=== PATIENT | male | born 1965 | race Caucasian/White ===

== ENCOUNTER 2018-04-11 14:23 | Inpatient (IN) | END 2018-05-09 20:28 | DRG 871 ==

== ENCOUNTER 2018-08-05 21:37 | Inpatient (IN) | payer BC, OTHER ==
[~2018-08-05] VITALS: Ht 175.3 cm; Wt 54.6 kg
[~2018-08-05 21:37] MED LIST: ACET-2047 PO; ACYC400T2 PO; ARGI1POW19 PO; ASCO500C7 PO; CARB1TAB42 PO; DEXT30DR5 OP; ESCI10TA PO; GABA300C16 PO; HYDR2TAB3 PO; IPRA3AMP29 INHALATION; LACT1CAP57 PO; LENA2.5C PO; LORA0.5T PO; MAGN400T28 PO; MEMA10TA PO; METH10TA2 PO; MIRT15TA PO; MULT-94 PO; PANT40TA4 PO; POTA20TA39 PO; RIVA10TA PO; THIA50TA7 PO; VIT1TABL46 PO; ZOF8 PO
[2018-08-05] MEDS ORDERED: CEFEPIME 2GM/50 ML (PMX) 50 ML IVPB STA (21:42)
[2018-08-05] MEDS ORDERED: SODIUM CHLORIDE 0.9% 1L BAG IV* STA (21:44)
[2018-08-05] MEDS ORDERED: ACETAMINOPHEN 650 MG SUPP PR STA (21:44)
[2018-08-05] MEDS ORDERED: VANCOMYCIN 1 GM (PMX) 250 ML IVPB ONE (22:00)
--- NOTE | 2018-08-05 22:33 | ERD ---
ER Documentation Chief Complaint Chief Complaint BIB RA FROM SNF FOR ALOC PRIOR TO ARRIVAL HPI 53-year-old male history of relapsed, refractory non-Hodgkin's lymphoma, Parkinson's disease, sepsis, C. difficile colitis, anemia, neuropathy, depression, blindness and DVT/pulmonary embolism status post IVC filter placement brought to the ED [facility] for evaluation of altered mental status. Patient at baseline is awake, alert and responsive to his name but approximately 30 minutes ago ago became lethargic and not responsive. History is limited due to the patient's cognitive impairment and obtained for review of prior records, EMS report and [facility]itentiary facility records. ROS Unobtainable except as per HPI due to the patient's cognitive impairment Medications Home Meds Reported Medications Omeprazole* (Omeprazole*) 20 Mg Capsule.dr, 20 MG PO AC BREAKFAST, #30 CAP 08/06/18 Magnesium Hydroxide* (Milk Of Magnesia*) 400 Mg/5 Ml Oral.susp, 30 ML PO DAILY PRN for CONSTIPATION, ML 08/06/18 Enoxaparin Sodium* (Enoxaparin Sodium*) 40 Mg/0.4 Ml Syringe, 40 MG SC QHS, SYR 08/06/18 Docusate Sodium* (Colace*) 100 Mg Capsule, 100 MG PO BID, #60 CAP 08/06/18 Aspirin* (Aspirin* Chew) 81 Mg Tab.chew, 81 MG PO DAILY, TAB.CHEW 08/06/18 Lenalidomide (REVLIMID) 2.5 Mg Capsule, 5 MG PO Q48H, CAP 04/12/18 Carbidopa/Levodopa (Carbidopa-Levo ER 25-100 Tab) 1 Each Tablet.er, 1 EACH PO TID, TAB 04/11/18 Multivitamin (Super Multivitamin) 1 Each Tablet, 1 EACH PO DAILY, TAB 04/11/18 Memantine* (Namenda*) 10 Mg Tablet, 10 MG PO DAILY, #30 TAB 04/11/18 Magnesium Oxide* (Magnesium Oxide*) 400 Mg Tablet, 400 MG PO DAILY, TAB 04/11/18 Lactobacillus Rhamnosus* (Culturelle*) 1 Each Cap.sprink, 1 CAP PO BID, CAP 04/11/18 Hydromorphone Hcl* (Hydromorphone Hcl*) 2 Mg Tablet, 2 MG PO Q4H PRN for PAIN, TAB 04/11/18 Gabapentin* (Gabapentin*) 300 Mg Capsule, 900 MG PO TID, #270 CAP 04/11/18 Escitalopram Oxalate* (Lexapro*) 10 Mg Tablet, 10 MG PO DAILY, #30 TAB 04/11/18 Ipratropium-Albuterol (Ipratropium-Albuterol) 0.5-3 Mg/3 Ml Ampul.neb, 3 ML INH ALATION Q8 PRN for WHEEZING AND SOB, #30 VIAL 04/11/18 Ascorbic Acid* (Vitamin C*) 500 Mg Capsule.sa, 500 MG PO BID, CAP 04/11/18 Acetaminophen* (Acetaminophen*) 650 Mg Tablet, 650 MG PO Q6 PRN for PAIN AND/OR INFLAMMATION, #30 TAB 04/11/18 Discontinued Reported Medications Ondansetron Hcl* (Zofran*) 8 Mg Tab, 8 MG PO Q8 PRN for NAUSEA AND OR VOMITING, TAB 04/11/18 Vitamin B Complex* (Vitamin B Complex*) 1 Each Tablet, 1 TAB PO DAILY, TAB 04/11/18 Thiamine* (Thiamine*) 50 Mg Tablet, 50 MG PO DAILY, TAB 04/11/18 Rivaroxaban* (Xarelto*) 10 Mg Tablet, 10 MG PO BID, TAB 04/11/18 Mirtazapine* (Remeron*) 15 Mg Tablet, 15 MG PO HS, TAB 04/11/18 Potassium Bicarbonate-Citric Acid (Effer-K) 20 Meq Tablet.eff, 20 MEQ PO BID, TAB 04/11/18 Pantoprazole* (Pantoprazole*) 40 Mg Tablet.dr, 40 MG PO AC BREAKFAST, TAB 04/11/18 Methadone Hcl* (Methadone*) 10 Mg Tab, 10 MG PO Q12 PRN for SEVERE PAIN LEVEL 7- 10, TAB 04/11/18 Lorazepam* (Lorazepam*) 0.5 Mg Tablet, 0.5 MG PO HS PRN for ANXIETY, TAB 04/11/18 Dextran 70/Hypromellose (Artificials Tears Drops) 30 Ml Drops, 2 DROP OP QID PRN for DRY EYES, BOTTLE 04/11/18 Arginine/Ascorbate Sod/Olivia AC (Arginaid Powder) 1 Each Powd.pack, 1 EACH PO BID 04/11/18 Acyclovir* (Acyclovir*) 400 Mg Tablet, 400 MG PO QID, TAB 04/11/18 Allergies Allergies: Coded Allergies: hydralazine (Verified Allergy, Severe, 08/06/18) levofloxacin (Verified Allergy, Severe, 08/06/18) PMhx/Soc Reviewed in chart. As per HPI. DNR/DNI status to be confirmed. History of Surgery: No Anesthesia Reaction: No Hx Neurological Disorder: Yes (alert to self) Hx Respiratory Disorders: No Hx Cardiac Disorders: No Hx Psychiatric Problems: No Hx Miscellaneous Medical Probl: Yes (PARKINSONISOM, CHRONIC LBP, NEUROPATHY, DEPRESSION , DYSPHAGIA) Hx Alcohol Use: No Hx Substance Use: No Hx Tobacco Use: No FmHx No family history relevant to presenting complaint Physical Exam Vitals Temperature: 101.3. blood pressure 140/102. Pulse: 140. Respirations: 35. O2 saturation 85% on room air. Physical Exam Const: Alert, ill-appearing, severe distress Head: Atraumatic Eyes: Normal Conjunctiva ENT: Normal External Ears, Nose and Mouth. Mucous membranes dry Neck: Limited range of motion, nontender, no meningismus. Resp: Breath sounds diminished at the bases but otherwise clear to auscultation bilaterally Cardio: Tachycardic, regular rate and rhythm, no murmurs Abd: Soft, non tender, non distended. Normal bowel sounds. No rebound or guarding. Exam is limited due to the constraints imposed by the patient's cognitive impairment and clinical condition. Skin: No petechiae or rashes Back: No midline or flank tenderness Ext: No cyanosis, or edema Neur: Lethargic but arousable. Cogwheeling rigidity. Result Diagram: 08/10/18 0440 08/11/18 0518 Results 24 hrs Laboratory Tests Test 08/05/18 21:42 08/05/18 21:49 08/05/18 21:58 08/05/18 23:01 Blood Gas Blood arterial Specimen Source Arterial Blood 08/05/2018 10:12 Date Drawn :53 PM Arterial Blood 7.339 pH (Temp corrected ) Arterial Blood 31.9 mmhg pCO2 (Temp correct) Arterial Blood 82.2 mmHG pO2 (Temp corrected ) Arterial Blood 16.8 mmol/L HCO3 Arterial Blood -8.0 mmol/L Base Excess Arterial Blood 93.5 mmHG Oxygen Saturati on Magdi Test ACCEPTAB Arterial Blood Right Radial Gas Puncture Site Arterial 0.3 % Blood Carboxyhe moglobin Arterial Blood 0.5 % Methemoglobin Blood Gas A-a 598.9 mmHg O2 Differential Oxyhemoglobin 92.8 % Percent Blood Gas 37.0 C Temperature Blood Gas 25 Actual Respiration Rat e Blood Gas MASK - NRB Modality FiO2 100.0 % Blood Gas Critical Value ZEB CLEANING Read Back Blood Gas BL Notified Whom Blood Gas 08/05/2018 10:22 Notified Time :07 PM White Blood 8.3 10^3/ul Count Red Blood Count 3.77 10^6/ul Hemoglobin 11.2 g/dl Hematocrit 39.8 % Mean 105.6 fl Corpuscular Volume Mean 29.7 pg Corpuscular Hemoglobin Mean 28.1 g/dl Corpuscular Hemoglobin Conc ent Red Cell 22.2 % Distribution Width Platelet Count 176 10^3/UL Mean Platelet 12.8 fl Volume Immature 0.500 % Granulocytes % Neutrophils % 44.7 % Lymphocytes % 48.4 % Monocytes % 6.0 % Eosinophils % 0.0 % Basophils % 0.4 % Nucleated Red 0.6 /100WBC Blood Cells % Immature 0.040 10^3/ul Granulocytes # Neutrophils # 3.7 10^3/ul Lymphocytes # 4.0 10^3/ul Monocytes # 0.5 10^3/ul Eosinophils # 0.0 10^3/ul Basophils # 0.0 10^3/ul Nucleated Red 0.1 10^3/ul Blood Cells # Prothrombin 13.4 Sec Time Prothrombin 1.0 Time Ratio INR 1.01 International Normalized Rati o Activated 20.5 Sec Partial Thrombo plast Time Sodium Level 154 mmol/L Potassium Level 3.1 mmol/L Chloride Level 115 mmol/L Carbon Dioxide 17 mmol/L Level Anion Gap 22 Blood Urea 27 mg/dl Nitrogen Creatinine 1.28 mg/dl Est Glomerular 59 mL/min Filtrat Rate mL/min Glucose Level 120 mg/dl POC Venous 7.1 mmol/L Lactate Calcium Level 11.2 mg/dl Total Bilirubin 0.3 mg/dl Direct 0.00 mg/dl Bilirubin Indirect 0.3 mg/dl Bilirubin Aspartate Amino 29 IU/L Transf (AST/SGO T) Alanine 11 IU/L Aminotransferas e (ALT/SGPT) Alkaline 216 IU/L Phosphatase Troponin I 0.275 ng/ml Total Protein 5.8 g/dl Albumin 3.7 g/dl Globulin 2.10 g/dl Albumin/Globuli 1.76 n Ratio Bedside Glucose 127 mg/dL Urine Color YELLOW Urine Clarity CLEAR Urine pH 6.0 Urine Specific 1.018 [place] Urine Ketones TRACE mg/dL Urine Nitrite NEGATIVE mg/dL Urine Bilirubin NEGATIVE mg/dL Urine NEGATIVE mg/dL Urobilinogen Urine Leukocyte NEGATIVE Mich/ul Esterase Urine 41 /HPF Microscopic RBC Urine 10 /HPF Microscopic WBC Urine 2+ mg/dL Hemoglobin Urine Glucose NEGATIVE mg/dL Urine Total 2+ mg/dl Protein Current Medications Medications Dose Sig/Rene Start Time Status Last (Trade) Ordered Route PRN Stop Time Admin Dose Reason Admin Cefepime HCl 50 ml @ ONCE STAT 08/05/18 DC 08/05/18 100 mls/hr IVPB 21:42 22:06 08/05/18 22:11 Vancomycin 250 ml @ ONCE ONCE 08/05/18 DC 08/05/18 HCl 125 mls/hr IVPB 22:00 22:40 08/05/18 23:59 Sodium 1,690 ml BOLUS OVER 2 08/05/18 DC 08/05/18 Chloride HOURS STAT 21:44 22:07 (NS) IV* 08/05/18 21:47 650 mg ONCE STAT 08/05/18 DC 08/05/18 Acetaminophen CO 21:44 22:07 (Tylenol 08/05/18 21:47 Supp) Aspirin 300 mg ONCE ONCE 08/05/18 DC 08/05/18 (Aspirin) CO 23:00 22:40 08/05/18 23:01 Sodium 1,000 ml @ Q1H STAT 08/05/18 DC 08/05/18 Chloride 1,000 mls/hr IV 23:15 23:47 08/06/18 00:14 Procedures/MDM DOCUMENTS REVIEWED: ED nurse, prior records, SNF records EKG: Time: 2204. Sinus tachycardia. Ventricular rate 125. Right bundle branch block. No acute ST segment elevation or depression. No ectopy. My Interpretation IMAGING: PROCEDURE: XR Chest AP portable CLINICAL INDICATION: Sepsis TECHNIQUE: An AP portable radiograph of the chest was submitted. COMPARISON: 07/28/2018 FINDINGS: Support Hardware: None Cardiovascular: The heart remains mildly enlarged with the pulmonary vasculature upper normal. Lung Membreno: A suboptimal inspiration compresses lung parenchyma. Air space opacification projects to the heart within the left lower lobe and improving interstitial infiltrate is seen within the right upper lobe and within the left lung more diffusely. Pleural Spaces: A small left pleural fluid accumulation is suggested. No pneumothorax is evident. Osseous Structures: There is again evidence of vertebral plasty at approximately the level of T10. Soft Tissues: A biliary stent and and inferior vena cava filter projects to the right abdomen. IMPRESSION: 1. Persistent mild cardiomegaly with the pulmonary vasculature upper normal. 2. Improving interstitial infiltrates seen through both lung membreno but with persistent air space opacification projecting to the heart within the left lower lobe. A small left pleural fluid accumulation is suspected but no pneumothorax is evident. 3. Previous vertebral plasty at approximately the level of T10. The osseous elements are osteopenic. 4. A biliary stent and an IVC filter project through the abdomen. Physician Oksana Date Time Electronically viewed and signed by Wayne Conley Physician on 08/05/2018 22:14 RH/ MEDICAL DECISION MAKIN-year-old male history of relapsed, refractory non- Hodgkin's lymphoma, Parkinson's disease, sepsis, C. difficile colitis, anemia, neuropathy, depression, blindness and DVT/pulmonary embolism status post IVC filter placement brought to the ED [facility] for evaluation of altered mental status. Patient with multiple criteria for systemic inflammatory response syndrome, severe sepsis and septic shock with elevated lactate > 4.0 mmol/L. Within 3 hours of recognition 30 cc/kg fluid bolus administered and antibiotics after cultures. Hypoxic respiratory failure responded to noninvasive positive pressure ventilation as a bridge to mechanical ventilation pending resolution of patient's resuscitation status. No hypotension, indication for vasopressors or need for emergent central venous catheter placement. A PICC would be more appropriate and can be deferred until the morning. Elevated troponin without acute ischemic EKG changes consistent with non-ST elevation acute coronary syndrome versus demand ischemia. Patient's infectious symptoms have not stabilized and the patient is at risk of rapid decompensation. The patient will be admitted for careful hydration, antibiotic therapy, infectious source control, further evaluation and management. Sepsis Documentation: SEVERE SEPSIS CRITERIA: Infectious source: Pneumonia and urinary tract infection End organ damage indicated by: Lactate > 2.0 mmol/L Acute Resp Failure (sat < 92% w/o oxygen) SEPSIS MANAGEMENT Time of recognition of sepsis: 21:49. Time of recognition of septic shock: 21:49. 3 HOUR BUNDLE Blood cultures x 2 before broad-spectrum antibiotics: Yes 30 ml/kg NS bolus Completed Initial lactate: 7.1 mmol/L Repeat lactate: 3.7 mmol/L SEPTIC SHOCK ASSESSMENT: Lactic acid > 4.0: Yes Persistent hypotension (SBP < 90 or 40 mmHg drop, MAP < 65) despite 30 mL/kg IV fluid bolus: No VOLUME REASSESSMENT FOR SEPTIC SHOCK: Reevaluation Time: 2319 Temp 99.9, BP 125/86, HR 110, RR 18, Pox 96% Heart: Regular rate & rhythm Lungs: No crackles Skin: Warm & dry Cap Refill: Less than 2 seconds Peripheral pulses: Radially present PERSISTENT HYPOTENSION TREATMENT: Comfort care: No Central line: Not required Vasopressor started: Not required I considered further perfusion assessment with CVP measurement, SCVO2, bedside ultrasound volume assessment, passive leg raise, trial of further fluid bolus. And proceeded with 30 ml/kg fluid bolus of NSS, broad spectrum antibiotics, and admission. CRITICAL CARE Critical care time: 40 minutes Due to the high probability of eminent, respiratory, cardiovascular, metabolic and hemodynamic deterioration this patient with acute hypoxic respiratory failure and septic shock requiring frequent and multiple re-evaluations of vital signs and response to therapy including emergent fluid management while mainta ining close respiratory support. Provision of immediate and broad-spectrum antibiotic therapy. Simultaneous assessment for possible sources in order to direct targeted therapy. Consideration for invasive and chemical support to prevent cardiopulmonary collapse. Additional critical care time was spent in interpretation of relevant clinical data including imaging studies and labs, extensive review of prior medical records and SNF notes as well as arranging for admission and ongoing care. Total critical care time is independent of procedures performed. CALLS/CONSULTS: Dr. Mackay. Recommends admission to telemetry PATIENT CARE TRANSITIONED: Time: 1225, Dr. Mackay. addendum: patient has been boarding in the ER. Upon reevaluation, patient is requiring multiple meds, fluids, abx and potentially pressors. No family is available at this time, but I feel a PICC line is appropriate. PICC line ordered with assumed consent. Departure Diagnosis: Primary Impression: Acute encephalopathy Additional Impressions: Acute respiratory failure with hypoxia Septic shock Systemic inflammatory response syndrome Pneumonia Pneumonia type: due to unspecified organism Laterality: unspecified laterality Lung location: unspecified part of lung Qualified Codes: J18.9 - Pneumonia, unspecified organism Urinary tract infection Urinary tract infection type: site unspecified Hematuria presence: with hematuria Qualified Codes: N39.0 - Urinary tract infection, site not specified; R31.9 - Hematuria, unspecified Non Hodgkin's lymphoma Non-Hodgkin lymphoma type: unspecified type Lymphoma site: unspecified region Qualified Codes: C85.90 - Non-Hodgkin lymphoma, unspecified, unsp ecified site Parkinsons disease Condition: Critical ZEB CLEANING MD Aug 05, 2018 22:33 OLIVER HARDY Aug 06, 2018 10:29
[2018-08-05] MEDS ORDERED: ASPIRIN 300 MG SUPP PR ONE (23:00)
[2018-08-05] MEDS ORDERED: SOD CHLORIDE 0.9% 1,000 ML IV STA (23:15)
[2018-08-06] VITALS (21 sets, daily range): BP systolic 87–120; BP diastolic 55–85; PULSE 96–118; RESP 16–26; Ht 175.3 cm; Wt 54.6 kg
[2018-08-06] MEDS ORDERED: ONDANSETRON 4 MG INJ IV PRN ×2 (01:00→12:00)
[2018-08-06] MEDS ORDERED: ACETAMINOPHEN 325 MG TAB PO PRN (01:00)
[2018-08-06] MEDS ORDERED: ADENOSINE 3 MG/ML SYRINGE IV ONE (07:00)
[2018-08-06] MEDS ORDERED: CA CHLORIDE 10% 10 ML SYRINGE ONE (07:00)
[2018-08-06] MEDS ORDERED: ASPI-903 PO (07:11)
[2018-08-06] MEDS ORDERED: ENOX40DI2 SC (07:12)
[2018-08-06] MEDS ORDERED: DOCU-144 PO (07:12)
[2018-08-06] MEDS ORDERED: MAGN400O19 PO (07:18)
[2018-08-06] MEDS ORDERED: OMEP20CA16 PO (07:19)
[2018-08-06] MEDS ORDERED: ACETAMINOPHEN 650 MG SUPP PR ONE (07:30)
[2018-08-06] MEDS ORDERED: CEFEPIME 1GM/50 ML (PMX) 50 ML IVPB ONE (08:30)
[2018-08-06] MEDS ORDERED: LIDOCAINE 1% (MPF) 5 ML VIAL SC ONE ×2 (08:30→13:00)
[2018-08-06] MEDS ORDERED: VANCOMYCIN 1 GM (PMX) 250 ML IVPB ONE (08:30)
[2018-08-06] MEDS ORDERED: DEXTROSE 5%-0.45% NACL 1,000 ML IV SCH (08:30)
[2018-08-06] MEDS ORDERED: VANCOMYCIN IV PER PHARMACY XX SCH (08:30)
[2018-08-06] MEDS ORDERED: LACTATED RINGER S IV ONE (08:30)
[2018-08-06] MEDS ORDERED: NORepinephrine 8MG/250 ML (PMX 250 ML IV SCH (09:00)
[2018-08-06] MEDS: ALBUTEROL/IPRATROPIUM (NEB) 3 ML AMP HHN SCH ×3 (10:15→19:29)
[2018-08-06] MEDS ORDERED: IPRATROPIUM (NEB) 0.5 MG/2.5 ML AMP NEB PRN (12:00)
[2018-08-06] MEDS ORDERED: DOCUSATE SODIUM 100 MG CAP PO PRN (12:00)
[2018-08-06] MEDS ORDERED: morphine 2 MG INJ IV PRN (12:00)
[2018-08-06] MEDS ORDERED: ALBUTEROL 0.083% (NEB) 2.5 MG/3 ML AMP NEB PRN (12:00)
[2018-08-06] MEDS ORDERED: NACL 0.9% 3 ML SYG IV SCH (12:00)
[2018-08-06] MEDS ORDERED: ACETAMINOPHEN 650MG/20.3ML CUP PO PRN (12:00)
--- NOTE | 2018-08-06 12:07 | HP ---
Date/Time of Note Date/Time of Note DATE: 08/06/18 TIME: 11:49 Assessment/Plan VTE Prophylaxis SCD applied (from Nsg): Yes Pharmacological prophylaxis: NA/contraindicated, other Pharm contraindication: other Lines/Catheters IV Catheter Type (from Nrsg): Saline Lock Assessment/Plan Assessment/Plan -Sepsis with shock, admit to ICU, continue IV fluids, pressors for blood pressure support if needed, continue broad-spectrum antibiotics, follow-up on cultures. Dr. Ramos is asked to see patient in infection disease consultation. -Acute hypoxic respiratory failure, continue BiPAP. Dr. Freeman is asked to see patient in pulmonology consultation. -Recurrent C. difficile colitis, patient was on vancomycin and rifaximin prior to admission. 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 -Parkinsonism. Continue Sinemet. -Neuropathy. Continue gabapentin. -Depression. Continue Lexapro. -Legal blindness. No acute issue. -History of deep venous thrombosis and pulmonary embolism in 2011, status post inferior vena cava filter placement. -Severe protein calorie malnutrition -DNR/DNI status Further recommendations based on clinical course. Plan of care discussed with Dr. Mackay. Result Diagram: 08/05/18214808/05/182148 Results 24hrs Laboratory Tests Test 08/05/18 21:42 08/05/18 21:49 08/05/18 21:58 08/05/18 23:01 Blood Gas Blood arterial Specimen Source Arterial Blood 08/05/2018 10:12: Date Drawn 53 PM Arterial Blood pH 7.339 L (Temp corrected) Arterial Blood 31.9 L pCO2 (Temp correct) Arterial Blood 82.2 pO2 (Temp corrected) Arterial Blood 16.8 L HCO3 Arterial Blood -8.0 L Base Excess Arterial Blood 93.5 L Oxygen Saturation Magdi Test ACCEPTAB Arterial Blood Right Radial Gas Puncture Site Arterial 0.3 Blood Carboxyhemo globin Arterial Blood 0.5 Methemoglobin Blood Gas A-a O2 598.9 H Differential Oxyhemoglobin 92.8 L Percent Blood Gas 37.0 Temperature Blood Gas Actual 25 Respiration Rate Blood Gas MASK - NRB Modality FiO2 100.0 Blood Gas Critical Value ZEB CLEANING Read Back Blood Gas BL Notified Whom Blood Gas 08/05/2018 10:22: Notified Time 07 PM White Blood Count 8.3 # Red Blood Count 3.77 L Hemoglobin 11.2 #L Hematocrit 39.8 #L Mean Corpuscular 105.6 H Volume Mean Corpuscular 29.7 Hemoglobin Mean Corpuscular 28.1 L Hemoglobin Concen t Red Cell 22.2 #H Distribution Width Platelet Count 176 # Mean Platelet 12.8 #H Volume Immature 0.500 H Granulocytes % Neutrophils % 44.7 Lymphocytes % 48.4 Monocytes % 6.0 Eosinophils % 0.0 Basophils % 0.4 Nucleated Red 0.6 H Blood Cells % Immature 0.040 H Granulocytes # Neutrophils # 3.7 Lymphocytes # 4.0 H Monocytes # 0.5 Eosinophils # 0.0 Basophils # 0.0 Nucleated Red 0.1 H Blood Cells # Prothrombin Time 13.4 Prothrombin Time 1.0 Ratio INR International 1.01 Normalized Ratio Activated 20.5 L Partial Thrombopl ast Time Sodium Level 154 H Potassium Level 3.1 L Chloride Level 115 H Carbon Dioxide 17 L Level Anion Gap 22 H Blood Urea 27 H Nitrogen Creatinine 1.28 H Est Glomerular 59 L Filtrat Rate mL/min Glucose Level 120 POC Venous 7.1 *H Lactate Calcium Level 11.2 H Total Bilirubin 0.3 Direct Bilirubin 0.00 Indirect 0.3 Bilirubin Aspartate Amino 29 Transf (AST/SGOT) Alanine 11 L Aminotransferase (ALT/SGPT) Alkaline 216 H Phosphatase Troponin I 0.275 *H Total Protein 5.8 L Albumin 3.7 Globulin 2.10 Albumin/Globulin 1.76 Ratio Bedside Glucose 127 Urine Color YELLOW Urine Clarity CLEAR Urine pH 6.0 Urine Specific 1.018 [place] Urine Ketones TRACE A Urine Nitrite NEGATIVE Urine Bilirubin NEGATIVE Urine NEGATIVE Urobilinogen Urine Leukocyte NEGATIVE Esterase Urine Microscopic 41 H RBC Urine Microscopic 10 H WBC Urine Hemoglobin 2+ H Urine Glucose NEGATIVE Urine Total 2+ H Protein Test 08/06/18 01:24 08/06/18 05:24 POC Venous 3.7 *H Lactate Lactic Acid Level 3.4 *H HPI/ROS Admit Date/Time Admit Date/Time Hx of Present Illness The patient is a 53-year-old male with history of non-Hodgkin's lymphoma status post radiation therapy patient follows with Dr. Pita Leger at [facility] and currently in remission on routine Revlimid. Patient has a history of Parkinson 's disease, recurrent C. difficile colitis and was treated on vancomycin and rifampin at [facility] facility, history of sepsis neuropathy, history of DVT and pulmonary embolism, status post IVC filter placement, blindness, and depression. Patient has a history of G-tube placement and subsequent G-tube removal and was taking p.o. at retirement facility, however, his food intake and appetite was declining lately. Patient was brought by an ambulance to [facility] ER for evaluation of altered mental status. Patient was noted to have fever, hypertension and respiratory distress requiring placement on BiPAP and IV fluids resuscitation. Lactate was elevated to 7.1. Patient was diagnosed with sepsis was started on broad-spectrum antibiotics and patient will be admitted for further evaluation and management. According to take care process maintenance technician at the bedside patient had cough and was treated with separate cefepime at [facility] facility prior to admission. I spoke with NEYDA Justin who wants patient to get treatment including antibiotics and pressors, however, requested the patient would be DNR /DNI. ROS 12 point review of system is negative except for what mentioned in HPI PMH/Family/Social Past Medical History HPI Medications Current Medications Ondansetron HCl (Zofran Inj) 4 mg ER BRIDGE PRN IV NAUSEA AND/OR VOMITING; Start 08/06/18 at 01:00; Stop 08/07/18 at 00:59 Acetaminophen (Tylenol Tab) 650 mg ER BRIDGE PRN PO MILD PAIN(1-3)OR ELEVATED TEMP; Start 08/06/18 at 01:00; Stop 08/07/18 at 00:59 Dextrose/Sodium Chloride 1,000 ml @ 100 mls/hr Q10H IV Last administered on 08/06/18at 09:56; Admin Dose 100 MLS/HR; Start 08/06/18 at 08:30 Vancomycin HCl (Vanco Iv Per Pharmacy) VANCOMYCIN PER PHARMACY PER PROTOCOL XX ; Start 08/06/18 at 08:30 Cefepime HCl 50 ml @ 100 mls/hr Q12 IVPB ; Start 08/06/18 at 21:00 Pantoprazole (Protonix Iv) 40 mg DAILY@06 IV ; Start 08/07/18 at 06:00 Albuterol/ Ipratropium (Duoneb) 3 ml Q6H RESP THERAPY HHN Last administered on 08/06/18at 10:15; Admin Dose 3 ML; Start 08/06/18 at 08:30 Acetaminophen (Tylenol Supp) 650 mg Q4H PRN ME MILD PAIN(1-3) OR TEMP>38C; Start 08/06/18 at 08:30 Norepinephrine 250 ml @ 1.875 mls/ hr TITRATE IV ; Start 08/06/18 at 09:00 Coded Allergies: hydralazine (Verified Allergy, Severe, 08/06/18) levofloxacin (Verified Allergy, Severe, 08/06/18) Past Surgical History Past Surgical Hx: other (Status post biliary stent placement, status post IVC filter placement for history of DVT and PE, status post G-tube placement and subsequent removal) Family History Significant Family History: no pertinent family hx Social History Alcohol Use: none Smoking Status: Never smoker Drug Use: none Exam/Review of Systems Vital Signs Vitals Vital Signs Date Temp Pulse Resp B/P (MAP) Pulse Ox O2 O2 Flow FiO2 Time Delivery Rate 08/06/18 99.6 99 17 97/81 (86) 100 BIPAP 11:15 08/06/18 15.0 06:30 08/06/18 70 00:11 Exam Constitutional: alert, frail Psych: confusion Head: normocephalic Eyes: other (Blind) ENMT: nl external ears & nose Neck: supple Respiratory: diminished breath sounds Cardiovascular: regular rate and rhythm Gastrointestinal: soft, non-tender Genitourinary - Male: other (Craft catheter) Musculoskeletal: nl extremities to inspection Extremities: normal pulses Neurological: confused, lethargic Skin: nl ALEXANDRA Cartagena Aug 06, 2018 12:00
[2018-08-06] MEDS ORDERED: LENALIDOMIDE 5 MG XX SCH (12:30)
[2018-08-06] MEDS: GABAPENTIN 300 MG CAP PO SCH ×2 (14:00→20:10)
--- NOTE | 2018-08-06 14:34 | NUR ---
PICC Insertion. This nurse to ICU bed 118 for peripherally inserted central catheter (PICC) insertion. Patient awake, alert, oriented x 4. Procedure reviewed, patient agreed to proceed. Signed consent on chart for PICC. LUE prepped with chlorhexidene, then maximum barrier drape applied. 5 FR double lumen Arrow Power PICC inserted into brachial vein, 45cm cut internal, 0cm exposed, using U/S guidance and sterile technique. CXR performed; tip confirmed in lower 1/3 SVC. Sterile dressing applied. Patient tolerated procedure well.
--- NOTE | 2018-08-06 14:50 | CONS ---
DATE OF ADMISSION: 08/06/2018 DATE OF CONSULTATION: 08/06/2018 REASON FOR CONSULTATION: Shortness of breath. Thank you, Dr. Mackay, for this consultation. HISTORY OF PRESENT ILLNESS: This is a 53-year-old gentleman with multiple medical problems including legal blindness, severe Parkinson disease, depression, relapsed non-Hodgkin's lymphoma, recurrent C. difficile colitis, [facility] with increasing shortness of breath, orthop flako, PND, found to have significant hypoxemic respiratory failure, possible early right lower lobe pn eumonia. Initial lactic acid was markedly elevated. The patient received fluid resuscitation. Curr ently does not require vasopressor support. PAST MEDICAL HISTORY: As above including pulmonary embolism, status post inferior vena cava filter p lacement. MEDICATIONS: Per chart. ALLERGIES: None. SOCIAL HISTORY: He is a nonsmoker, no alcohol, no history of drug use. FAMILY HISTORY: Noncontributory. SYSTEMS REVIEW: A 12-point review of systems unable to perform. PHYSICAL EXAMINATION: GENERAL: Chronically ill, cachectic looking gentleman with contractures on bilevel ventilation. VITAL SIGNS: Temperature 99, pulse is 98, blood pressure 103/68, O2 saturation 96%, FIO2 of 50%. NECK: Somewhat rigid. No JVD. CARDIAC: S1, S2, tachycardia. CHEST: Diminished air entry bilaterally. ABDOMEN: Soft, nontender. No guarding or rebound. EXTREMITIES: No cyanosis, clubbing, edema. NEUROLOGIC: Generalized weakness. LABORATORY DATA: White count 3.3, hemoglobin 8.2, platelets of 96. BUN 29, creatinine 1.08. Lactic acid now down to 3.4. ABG: pH 7.33, pCO2 of 31, pO2 of 82 on nonrebreather. DIAGNOSTIC DATA: Chest x-ray shows early right lower lobe infiltrate, possible left lower lobe infil trate also. IMPRESSION AND PLAN: 1. Possible aspiration pneumonia. 2. Acute on chronic hypoxemic respiratory failure. 3. Mild respiratory acidosis. 4. Significant lactic acidosis secondary to sepsis. 5. Severe Parkinson's disease. 6. History of pulmonary embolus status post IVC filter placement. The patient will require: 1. Aspiration precautions. 2. Post antibiotics. 3. Sputum and blood cultures. 4. Deep vein thrombosis and gastrointestinal prophylaxis. Dictated By: DANTE ANTOINE/JAMES Conf#: [id number] [facility]#: [id number] CC: TALI MACKAY MD;*End*
[2018-08-06] MEDS: CARBIDOPA/LEVODOPA 25-100 (CR) TAB PO SCH ×2 (15:00→20:09)
--- NOTE | 2018-08-06 15:08 | CONS ---
DATE OF ADMISSION: 08/06/2018 DATE OF CONSULTATION: 08/06/2018 TYPE OF CONSULTATION: Infectious disease. REASON FOR CONSULTATION: Antibiotic management. HISTORY OF PRESENT ILLNESS: Mikey Duncan is a 53-year-old male who was brought in from SNF for al tered levels of consciousness and is seen for antibiotic management. His problems include: 1. Relapsed refractory non-Hodgkin's lymphoma. 2. Parkinson's disease. 3. Sepsis. 4. History of Clostridium difficile colitis. 5. Anemia of chronic disease. 6. Neuropathy. 7. Depression. 8. Blindness. 9. DVT with pulmonary emboli, status post IVC filter placement. The patient was brought in for alte red levels of consciousness. He was awake, alert, responsive, was able to respond to his name and be came lethargic and unresponsive 30 minutes prior to his being taken to the hospital. He has cognitiv e impairment. PAST MEDICAL HISTORY: As outlined and includes Parkinson's disease, chronic low back pain, neuropath y, depression and dysphagia. PAST SURGICAL HISTORY: None known. FAMILY HISTORY: Noncontributory. SOCIAL HISTORY: He does not smoke, drink or abuse drugs. ALLERGIES: None to penicillin, sulfa or foods. MEDICATIONS: Per chart. REVIEW OF SYSTEMS: Noncontributory. PHYSICAL EXAMINATION: GENERAL: The patient is awake, responsive, ill appearing in severe distress. VITAL SIGNS: T-max is 101.3, blood pressure 140/100, respirations 35, pulse of 140. SKIN: Without generalized rash. HEENT: Within normal limits. NECK: Supple. LYMPH NODES: None palpable. CHEST: Decreased breath sounds at the bases. HEART: Tachycardic, regular rhythm without murmur or gallop. ABDOMEN: Soft, nontender, nondistended, without organosplenomegaly or masses. EXTREMITIES: Without cyanosis, clubbing, or edema. RECTAL AND GENITAL: Deferred. NEUROLOGIC: No focal neurological abnormality. Patient actually has cog wheeling rigidity secondary to his Parkinson's disease. ANCILLARY LABORATORY DATA: White count of 8.3, H and H 11.2, 39, platelet count 176,000. BUN and creatinine 27/1.28, glucose of 120. HOSPITAL COURSE: The patient was started on vancomycin and cefepime. A PICC line was inserted, left -sided PICC line. Heart, mediastinum and lungs are unchanged, mild cardiomegaly with mild vascular c ongestion, mild bilateral interstitial infiltrates and left-sided pleural effusion. The patient has on chest x-ray interstitial infiltrates seen for both lungs with persistent airspace opacification pr ojecting to the heart within the left lower lobe, small left pleural effusion accumulation is suspect ed, no swelling or pneumothorax is evident, previous vertebroplasty at approximately the level of T10 , biliary stent and an IVC filter project through the abdomen. IMPRESSION AND PLAN: The patient comes in now with altered levels of consciousness. He has SIRS wit h infection, most likely of his lungs. He is on vancomycin and Zosyn for that. His urine is negativ e for nitrite and leukocyte esterase, his WBC count in the urine is 10, RBC 41. Patient was transfer red to the intensive care unit in septic shock. Continue IV fluids, pressors for blood pressure as n eeded and continue broad spectrum antibiotics. IMPRESSION: Acute hypoxic respiratory failure, recurrent C. difficile colitis, was on vancomycin and rifaximin. On admission, probable healthcare-acquired pneumonia. He has relapsed non-Hodgkin's lym phoma to spine and brain, post-radiation therapy. The patient is currently on Revlimid. Altered lev els of consciousness, most likely secondary to toxic metabolic encephalopathy secondary to sepsis. T he patient is on Sinemet for Parkinson disease and gabapentin for neuropathy, Lexapro for depression. He has severe protein calorie malnutrition. He is a DNR/DNI. I want to thank Dr. Mackay and nurse practitioner Kaleb for asking me to see this unfortunate g entleman in consultation. Dictated By: FRANCISCO JAVIER GATES MD, JD/NTS Conf#: [id number] DID#: [id number] CC: TALI MACKAY MD;*EndCC*
[2018-08-06] MEDS: POTASSIUM CHLORIDE 50 ML IVPB SCH ×2 (15:14→16:53)
[2018-08-06] MEDS: D5W-0.45 NACL + KCL 20 MEQ 1,000 ML IV SCH (15:43)
--- NOTE | 2018-08-06 18:11 | CONS ---
Date/Time of Note Date/Time of Note DATE: 08/06/18 TIME: 18:05 Assessment/Plan Assessment/Plan Assessment/Plan Severe sepsis Paroxysmal atrial fibrillation, currently sinus rhythm History lymphoma Mild elevated troponin -Patient with sepsis and hypotension which has responded to IV fluids. Would continue, maintain potassium above 4.0 and magnesium above 2.0. Initial cardiac enzymes with mildly elevated troponin, will check serial cardiac enzymes, echocardiogram. Result Diagram: 08/06/18 1251 08/06/18 1251 Results 24hrs Laboratory Tests Test 08/05/18 21:42 08/05/18 21:49 08/05/18 21:58 08/05/18 23:01 Blood Gas Blood arterial Specimen Source Arterial Blood 08/05/2018 10:12 Date Drawn :53 PM Arterial Blood 7.339 L pH (Temp corrected) Arterial Blood 31.9 L pCO2 (Temp correct) Arterial Blood 82.2 pO2 (Temp corrected) Arterial Blood 16.8 L HCO3 Arterial Blood -8.0 L Base Excess Arterial Blood 93.5 L Oxygen Saturatio n Magdi Test ACCEPTAB Arterial Blood Right Radial Gas Puncture Site Arterial 0.3 Blood Carboxyhem oglobin Arterial Blood 0.5 Methemoglobin Blood Gas A-a O2 598.9 H Differential Oxyhemoglobin 92.8 L Percent Blood Gas 37.0 Temperature Blood Gas Actual 25 Respiration Rate Blood Gas MASK - NRB Modality FiO2 100.0 Blood Gas Critical Value ZEB [employer]ANING Read Back Blood Gas BL Notified Whom Blood Gas 08/05/2018 10:22 Notified Time :07 PM White Blood 8.3 # Count Red Blood Count 3.77 L Hemoglobin 11.2 #L Hematocrit 39.8 #L Mean Corpuscular 105.6 H Volume Mean Corpuscular 29.7 Hemoglobin Mean Corpuscular 28.1 L Hemoglobin Elise nt Red Cell 22.2 #H Distribution Width Platelet Count 176 # Mean Platelet 12.8 #H Volume Immature 0.500 H Granulocytes % Neutrophils % 44.7 Lymphocytes % 48.4 Monocytes % 6.0 Eosinophils % 0.0 Basophils % 0.4 Nucleated Red 0.6 H Blood Cells % Immature 0.040 H Granulocytes # Neutrophils # 3.7 Lymphocytes # 4.0 H Monocytes # 0.5 Eosinophils # 0.0 Basophils # 0.0 Nucleated Red 0.1 H Blood Cells # Prothrombin Time 13.4 Prothrombin Time 1.0 Ratio INR 1.01 International Normalized Ratio Activated 20.5 L Partial Thrombop last Time Sodium Level 154 H Potassium Level 3.1 L Chloride Level 115 H Carbon Dioxide 17 L Level Anion Gap 22 H Blood Urea 27 H Nitrogen Creatinine 1.28 H Est Glomerular 59 L Filtrat Rate mL/min Glucose Level 120 POC Venous 7.1 *H Lactate Calcium Level 11.2 H Total Bilirubin 0.3 Direct Bilirubin 0.00 Indirect 0.3 Bilirubin Aspartate Amino 29 Transf (AST/SGOT ) Alanine 11 L Aminotransferase (ALT/SGPT) Alkaline 216 H Phosphatase Troponin I 0.275 *H Total Protein 5.8 L Albumin 3.7 Globulin 2.10 Albumin/Globulin 1.76 Ratio Bedside Glucose 127 Urine Color YELLOW Urine Clarity CLEAR Urine pH 6.0 Urine Specific 1.018 Wray Urine Ketones TRACE A Urine Nitrite NEGATIVE Urine Bilirubin NEGATIVE Urine NEGATIVE Urobilinogen Urine Leukocyte NEGATIVE Esterase Urine 41 H Microscopic RBC Urine 10 H Microscopic WBC Urine Hemoglobin 2+ H Urine Glucose NEGATIVE Urine Total 2+ H Protein Test 08/06/18 01:24 08/06/18 05:24 08/06/18 12:51 08/06/18 14:15 POC Venous 3.7 *H Lactate Lactic Acid 3.4 *H Level White Blood 3.3 #L Count Red Blood Count 2.74 #L Hemoglobin 8.2 #L Hematocrit 28.7 #L Mean Corpuscular 104.7 H Volume Mean Corpuscular 29.9 Hemoglobin Mean Corpuscular 28.6 L Hemoglobin Elise nt Red Cell 21.9 H Distribution Width Platelet Count 93 #L Mean Platelet 12.8 H Volume Immature 0.600 H Granulocytes % Neutrophils % Segmented 50 Neutrophils % (Manual) Band Neutrophils 19 H % (Manual) Lymphocytes % Lymphocytes % 29 (Manual) Monocytes % Monocytes % 2 (Manual) Eosinophils % Basophils % Nucleated Red 0.6 H Blood Cells % Immature 0.020 Granulocytes # Neutrophils # Neutrophils # 1.7 (Manual) Band Neutrophils 0.6 # Lymphocytes 0.9 (Manual) Lymphocytes # Monocytes # Monocytes # 0.0 L (Manual) Eosinophils # Basophils # Nucleated Red Blood Cells # Platelet DECREASED Estimate Giant Platelets 2 H Polychromasia 3+ Anisocytosis 1+ Microcytosis 1+ Ovalocytes 1+ Sodium Level 151 H Potassium Level 2.6 *L Chloride Level 121 H Carbon Dioxide 22 Level Anion Gap 8 # Blood Urea 29 H Nitrogen Creatinine 1.08 Est Glomerular > 60 Filtrat Rate mL/min Glucose Level 99 Hemoglobin A1c 4.7 Calcium Level 9.5 Phosphorus Level 3.6 Magnesium Level 1.9 Blood Gas Blood arterial Specimen Source Arterial Blood 08/06/2018 2:10: Date Drawn 28 PM Arterial Blood 7.389 pH (Temp corrected) Arterial Blood 36.0 pCO2 (Temp correct) Arterial Blood 110.4 H pO2 (Temp corrected) Arterial Blood 21.3 L HCO3 Arterial Blood -3.3 L Base Excess Arterial Blood 97.0 Oxygen Saturatio n Magdi Test ACCEPTAB Arterial Blood Right Radial Gas Puncture Site Arterial 0.3 Blood Carboxyhem oglobin Arterial Blood 0.4 Methemoglobin Blood Gas A-a O2 205.6 H Differential Oxyhemoglobin 96.3 Percent Blood Gas 37.0 Temperature Blood Gas 16.0 Respiration Rate Blood Gas Actual 23 Respiration Rate Blood Gas MASK - BIPAP Modality FiO2 50.0 Blood Gas 10 Pressure Support Blood Gas 16/6 IPAP/EPAP Ratio Blood Gas [place] Notified Whom Blood Gas 08/06/2018 2:22: Notified Time 21 PM Consultation Date/Type/Reason Admit Date/Time Type of Consult cv Reason for Consultation Atrial fibrillation Hx of Present Illness This is a 53-year-old male with progressive decline with history of lymphoma and fdc facility who was brought to emergency room secondary to respiratory distress, hypotension and altered mental status. As per friend at bedside, there is been a progressive mental decline since Saturday. Patient with hypotension and was given IV fluids and started on broad-spectrum antibiotics. Patient with brief atrial fibrillation and for this reason cardiology condition was requested. History of him to medical chart and per friend at bedside Past Medical History Lymphoma Recurrent sepsis Parkinson's Medications Current Medications Vancomycin HCl (Vanco Iv Per Pharmacy) VANCOMYCIN PER PHARMACY PER PROTOCOL XX ; Start 08/06/18 at 08:30 Cefepime HCl 50 ml @ 100 mls/hr Q12 IVPB ; Start 08/06/18 at 21:00 Albuterol/ Ipratropium (Duoneb) 3 ml Q6H RESP THERAPY HHN Last administered on 08/06/18at 14:08; Admin Dose 3 ML; Start 08/06/18 at 08:30; Stop 09/05/18 at 12:00 Acetaminophen (Tylenol Supp) 650 mg Q4H PRN [place] MILD PAIN(1-3) OR TEMP>38C; Start 08/06/18 at 08:30 Norepinephrine 250 ml @ 1.875 mls/ hr TITRATE IV ; Start 08/06/18 at 09:00 Potassium Chloride/Dextrose/ Sod Cl 1,000 ml @ 100 mls/hr Q10H IV Last administered on 08/06/18at 15:43; Admin Dose 100 MLS/HR; Start 08/06/18 at 13:00 IV Flush (NS 3 ml) 3 ml PER PROTOCOL IV ; Start 08/06/18 at 12:00 Ondansetron HCl (Zofran Inj) 4 mg Q6H PRN IV NAUSEA AND/OR VOMITING; Start 08/06/18 at 12:00 Albuterol (Proventil 0.083% (Neb)) 2.5 mg Q2H RESP THERAPY PRN NEB SHORTNESS OF BREATH; Start 08/06/18 at 12:00 Ipratropium [place] (Atrovent 0.02% (Neb)) 0.5 mg Q2H RESP THERAPY PRN NEB SHORTNESS OF BREATH; Start 08/06/18 at 12:00 Acetaminophen (Tylenol Liquid) 650 mg Q6H PRN PO PAIN LEVEL 1-3 OR FEVER; Start 08/06/18 at 12:00 Morphine Sulfate (morphine) 2 mg Q4H PRN IV PAIN LEVEL 7-10; Start 08/06/18 at 12:00 Docusate Sodium (Colace) 100 mg Q12H PRN PO CONSTIPATION; Start 08/06/18 at 12:00 Pantoprazole (Protonix Iv) 40 mg DAILY@06 IV ; Start 08/07/18 at 06:00 Aspirin (Aspirin) 81 mg DAILY PO ; Start 08/07/18 at 09:00 Carbidopa/Levodopa (Sinemet Cr (25/ 100)) 1 tab TID PO ; Start 08/06/18 at 15:00 Gabapentin (Neurontin) 900 mg TID PO ; Start 08/06/18 at 14:00 Lactobacillus Acidophilus/ Rhamnosus (Culturelle) 1 cap BID PO ; Start 08/06/18 at 21:00 Memantine (Namenda) 10 mg DAILY PO ; Start 08/07/18 at 09:00 Miscellaneous Information 5 mg Q48H PO ; Start 08/06/18 at 12:30; Status UNV Multivitamins Therapeutic (Theragran) 1 tab DAILY PO ; Start 08/07/18 at 09:00 Vancomycin HCl 100 ml @ 100 mls/hr Q12H IVPB ; Start 08/06/18 at 18:00 IV Flush (NS 10 ml) 10 ml PRN PRN IV FLUSH LINE; Start 08/06/18 at 15:00 Allergies: Coded Allergies: hydralazine (Verified Allergy, Severe, 08/06/18) levofloxacin (Verified Allergy, Severe, 08/06/18) Past Surgical History Past Surgical Hx: other (Status post biliary stent placement, status post IVC filter placement for history of DVT and PE, status post G-tube placement and subsequent removal) Family History Significant Family History: no pertinent family hx Social History Alcohol Use: none Smoking Status: Unknown if ever smoked Drug Use: none Exam/Review of Systems Vital Signs Vitals Vital Signs Date Temp Pulse Resp B/P (MAP) Pulse Ox O2 O2 Flow FiO2 Time Delivery Rate 08/06/18 104 19 103/69 96 17:30 (80) 08/06/18 Nasal 17:00 Cannula 08/06/18 2.0 16:55 08/06/18 98.1 16:00 08/06/18 50 14:08 Exam Awake, coughing at times, not answering questions, friend at bedside Constitutional: frail Head: normocephalic Respiratory: other (Coarse breath sounds bilaterally, no wheezing, scattered crackles) Cardiovascular: regular rate and rhythm, other (S1-S2 heard) Gastrointestinal: soft, non-tender, bowel sounds Extremities: edema Medications Medications Current Medications Vancomycin HCl (Vanco Iv Per Pharmacy) VANCOMYCIN PER PHARMACY PER PROTOCOL XX ; Start 08/06/18 at 08:30 Cefepime HCl 50 ml @ 100 mls/hr Q12 IVPB ; Start 08/06/18 at 21:00 Albuterol/ Ipratropium (Duoneb) 3 ml Q6H RESP THERAPY HHN Last administered on 08/06/18at 14:08; Admin Dose 3 ML; Start 08/06/18 at 08:30; Stop 09/05/18 at 12:00 Acetaminophen (Tylenol Supp) 650 mg Q4H PRN [place] MILD PAIN(1-3) OR TEMP>38C; Start 08/06/18 at 08:30 Norepinephrine 250 ml @ 1.875 mls/ hr TITRATE IV ; Start 08/06/18 at 09:00 Potassium Chloride/Dextrose/ Sod Cl 1,000 ml @ 100 mls/hr Q10H IV Last administered on 08/06/18at 15:43; Admin Dose 100 MLS/HR; Start 08/06/18 at 13:00 IV Flush (NS 3 ml) 3 ml PER PROTOCOL IV ; Start 08/06/18 at 12:00 Ondansetron HCl (Zofran Inj) 4 mg Q6H PRN IV NAUSEA AND/OR VOMITING; Start 08/06/18 at 12:00 Albuterol (Proventil 0.083% (Neb)) 2.5 mg Q2H RESP THERAPY PRN NEB SHORTNESS OF BREATH; Start 08/06/18 at 12:00 Ipratropium [place] (Atrovent 0.02% (Neb)) 0.5 mg Q2H RESP THERAPY PRN NEB SHORTNESS OF BREATH; Start 08/06/18 at 12:00 Acetaminophen (Tylenol Liquid) 650 mg Q6H PRN PO PAIN LEVEL 1-3 OR FEVER; Start 08/06/18 at 12:00 Morphine Sulfate (morphine) 2 mg Q4H PRN IV PAIN LEVEL 7-10; Start 08/06/18 at 12:00 Docusate Sodium (Colace) 100 mg Q12H PRN PO CONSTIPATION; Start 08/06/18 at 12:00 Pantoprazole (Protonix Iv) 40 mg DAILY@06 IV ; Start 08/07/18 at 06:00 Aspirin (Aspirin) 81 mg DAILY PO ; Start 08/07/18 at 09:00 Carbidopa/Levodopa (Sinemet Cr (25/ 100)) 1 tab TID PO ; Start 08/06/18 at 15:00 Gabapentin (Neurontin) 900 mg TID PO ; Start 08/06/18 at 14:00 Lactobacillus Acidophilus/ Rhamnosus (Culturelle) 1 cap BID PO ; Start 08/06/18 at 21:00 Memantine (Namenda) 10 mg DAILY PO ; Start 08/07/18 at 09:00 Miscellaneous Information 5 mg Q48H PO ; Start 08/06/18 at 12:30; Status UNV Multivitamins Therapeutic (Theragran) 1 tab DAILY PO ; Start 08/07/18 at 09:00 Vancomycin HCl 100 ml @ 100 mls/hr Q12H IVPB ; Start 08/06/18 at 18:00 IV Flush (NS 10 ml) 10 ml PRN PRN IV FLUSH LINE; Start 08/06/18 at 15:00 Imaging Imaging Telemetry reviewed with sinus rhythm, brief episode of atrial fibrillation, currently sinus rhythm in the low 100s Nito Ramirez DO Aug 06, 2018 18:11
[2018-08-06] MEDS ORDERED: MAGNESIUM SULFATE 2 GM/50 ML 50 ML IVPB ONE (18:30)
--- NOTE | 2018-08-06 19:21 | NUR ---
NURSE NOTE: PT ARRIVED TO ICU AT 1220, A/Ox1 OPENS EYES TO VOICE AND WILL VERBALLY RESPOND OCCASIONALLY; BP STABLE SO FAR AND HAS NOT REQUIRED VASOPRESSORS; PICC LINE PLACED, DURING PICC INSERTION PT WENT INTO RAPID AFIB HIGH 200s BUT CONVERTED OUT IN 15 MINUTES WITHOUT PHARMACOLOGIC INTERVENTION; K CRITICALLY LOW AND REPLACED IV; ON BIPAP WHEN HE ARRIVED FROM ER, ABG DRAWN AND WAS WNL SO PLACED PT ON NC AND HE LOOKS COMFORTABLE NO SOB AND O2 SAT >92%.
[2018-08-06] MEDS: VANCOMYCIN 500 MG (PMX) 100 ML IVPB SCH (19:42)
[2018-08-06] MEDS: LACTOBACILLUS RHAMNOSUS CAP PO SCH (20:10)
[2018-08-06] MEDS: morphine SULFATE/PF (2 MG/2 ML) SYG IV PRN (20:14)
[2018-08-06] MEDS: CEFEPIME 1GM/50 ML (PMX) 50 ML IVPB SCH (20:14)
--- NOTE | 2018-08-06 22:34 | NUR ---
VANCO PER RX PROTOCOL: DAY #1 S/O: 53 YO MALE W/ SEVERE PARKINSON'S, SEPSIS W/ SHOCK, HCAP (ASP), RESP FAILURE, RECURRENT C. DIFF COLITIS. TMAX = 100.5 SCR/BUN = 1.08/29 WBC = 3.3 A/P: VANCO 1GM LD X 1, FOLLOWED BY 500MG Q 12HR WITH TR LEVEL TOMORROW AFTERNOON TO CHECK CLEARANCE. WILL CONTINUE TO FOLLOW.
[2018-08-07] VITALS (34 sets, daily range): BP systolic 78–119; BP diastolic 54–88; PULSE 99–197; RESP 14–37
[2018-08-07] MEDS: ALBUTEROL/IPRATROPIUM (NEB) 3 ML AMP HHN SCH ×4 (01:08→19:42)
[2018-08-07] MEDS: D5W-0.45 NACL + KCL 20 MEQ 1,000 ML IV SCH ×3 (01:42→22:05)
--- NOTE | 2018-08-07 02:38 | NUR ---
pt has multiple episodes of SVT. Call placed to MD Thompson at [phone]. Awaiting call back for orders. Addendum: 08/07/18 at 0249 by BOBY CHARLES RN Told to call Dr. Ramirez. Call placed to Dr. Ramirez. Awaiting call back for orders. Addendum: 08/07/18 at 0257 by BOBY CHARLES RN Calls handled by Dr. Ca. Pt has since converted back to . No new orders from at this time. Will continue to monitor for recurrent episode of SVT.
[2018-08-07] MEDS: PANTOPRAZOLE 40 MG INJ IV SCH (05:47)
[2018-08-07] MEDS: VANCOMYCIN 500 MG (PMX) 100 ML IVPB SCH ×2 (05:48→17:56)
[2018-08-07] MEDS ORDERED: VANCOMYCIN 1 GM 250 ML IVPB SCH (06:00)
[2018-08-07] MEDS ORDERED: PANTOPRAZOLE 40 MG INJ IV SCH (06:00)
[2018-08-07] MEDS: CARBIDOPA/LEVODOPA 25-100 (CR) TAB PO SCH ×3 (08:24→20:33)
[2018-08-07] MEDS: ASPIRIN 81 MG TAB PO SCH (08:24)
[2018-08-07] MEDS: LACTOBACILLUS RHAMNOSUS CAP PO SCH ×2 (08:24→20:33)
[2018-08-07] MEDS: MEMANTINE 10 MG TAB PO SCH (08:24)
[2018-08-07] MEDS: MULTIVITAMINS THERAPEUTIC TAB PO SCH (08:25)
[2018-08-07] MEDS: GABAPENTIN 300 MG CAP PO SCH ×3 (08:25→20:33)
--- NOTE | 2018-08-07 08:46 | CONS ---
Date/Time of Note Date/Time of Note DATE: 08/07/18 TIME: 08:43 Assessment/Plan Assessment/Plan Assessment/Plan Chest x-ray showing right upper lobe infiltrate. Assessment recommendations; 1. Patient with a history of non-Hodgkin's lymphoma with recurrence admitted for hypoxemia due to development of pneumonia. Currently on appropriate antimicrobial regimen. 2. History of Parkinson's disease. 3. History of pulmonary embolism status post [place] filter placement in the past. 4. Pancytopenia. 5. Neuropathy. 6. History of C. difficile colitis. Patient however not exhibiting any diarrhea. With benign abdominal examination. 7. Possibly chronic encephalopathy. 8. Episode of SVT. Continue current supportive care. Consider transfer to telemetry unit. Obtain follow-up chest x-ray in 48 hours. Result Diagram: 08/07/18 0419 08/07/18 0419 Results 24hrs Laboratory Tests Test 08/06/18 12:51 08/06/18 14:15 08/06/18 18:40 08/07/18 04:19 White Blood 3.3 #L 3.6 L Count Red Blood Count 2.74 #L 2.57 L Hemoglobin 8.2 #L 7.7 L Hematocrit 28.7 #L 27.1 L Mean Corpuscular 104.7 H 105.4 H Volume Mean Corpuscular 29.9 30.0 Hemoglobin Mean Corpuscular 28.6 L 28.4 L Hemoglobin Elise nt Red Cell 21.9 H 22.4 H Distribution Width Platelet Count 93 #L 74 #L Mean Platelet 12.8 H 12.6 H Volume Immature 0.600 H 0.600 H Granulocytes % Neutrophils % Segmented 50 50 Neutrophils % (Manual) Band Neutrophils 19 H 21 H % (Manual) Lymphocytes % Lymphocytes % 29 26 (Manual) Monocytes % Monocytes % 2 3 (Manual) Eosinophils % Basophils % Nucleated Red 0.6 H 3 H Blood Cells % Immature 0.020 0.020 Granulocytes # Neutrophils # Neutrophils # 1.7 1.8 (Manual) Band Neutrophils 0.6 0.7 H # Lymphocytes 0.9 0.9 (Manual) Lymphocytes # Monocytes # Monocytes # 0.0 L 0.1 L (Manual) Eosinophils # Basophils # Nucleated Red Blood Cells # Platelet DECREASED DECREASED Estimate Giant Platelets 2 H 1 H Polychromasia 3+ 2+ Anisocytosis 1+ 1+ Microcytosis 1+ 1+ Ovalocytes 1+ Sodium Level 151 H 147 H Potassium Level 2.6 *L 4.5 Chloride Level 121 H 120 H Carbon Dioxide 22 19 L Level Anion Gap 8 # 8 Blood Urea 29 H 23 H Nitrogen Creatinine 1.08 0.90 Est Glomerular > 60 > 60 Filtrat Rate mL/min Glucose Level 99 397 #H Hemoglobin A1c 4.7 Calcium Level 9.5 8.7 Phosphorus Level 3.6 2.5 Magnesium Level 1.9 2.3 Blood Gas Blood arterial Specimen Source Arterial Blood 08/06/2018 2:10: Date Drawn 28 PM Arterial Blood 7.389 pH (Temp corrected) Arterial Blood 36.0 pCO2 (Temp correct) Arterial Blood 110.4 H pO2 (Temp corrected) Arterial Blood 21.3 L HCO3 Arterial Blood -3.3 L Base Excess Arterial Blood 97.0 Oxygen Saturatio n Magdi Test ACCEPTAB Arterial Blood Right Radial Gas Puncture Site Arterial 0.3 Blood Carboxyhem oglobin Arterial Blood 0.4 Methemoglobin Blood Gas A-a O2 205.6 H Differential Oxyhemoglobin 96.3 Percent Blood Gas 37.0 Temperature Blood Gas 16.0 Respiration Rate Blood Gas Actual 23 Respiration Rate Blood Gas MASK - BIPAP Modality FiO2 50.0 Blood Gas 10 Pressure Support Blood Gas 16/6 IPAP/EPAP Ratio Blood Gas [place] Notified Whom Blood Gas 08/06/2018 2:22: Notified Time 21 PM Creatine Kinase 25 < 20 L Creatine Kinase 15.3 Index Creatinine 3.82 H 2.64 H Kinase MB (Mass) Troponin I 0.214 *H 0.159 *H Spherocytes 1+ Test 08/07/18 07:00 Blood Gas Blood arterial Specimen Source Arterial Blood 08/07/2018 7:30: Date Drawn 02 AM Arterial Blood 7.435 pH (Temp corrected) Arterial Blood 29.7 L pCO2 (Temp correct) Arterial Blood 86.4 pO2 (Temp corrected) Arterial Blood 19.5 L HCO3 Arterial Blood -4.0 L Base Excess Arterial Blood 95.5 Oxygen Saturatio n Magdi Test ACCEPTAB Arterial Blood Right Radial Gas Puncture Site Arterial 0.1 Blood Carboxyhem oglobin Arterial Blood 0.3 Methemoglobin Blood Gas A-a O2 92.6 H Differential Oxyhemoglobin 95.1 Percent Blood Gas 37.0 Temperature Blood Gas NASAL CANNULA Modality FiO2 30.0 Blood Gas TM Notified Whom Blood Gas 08/07/2018 8:06: Notified Time 36 AM Consultation Date/Type/Reason Admit Date/Time Aug 06, 2018 at 00:34 Initial Consult Date Type of Consult Pulmonary/critical care Reason for Consultation Patient's condition has stabilized. Has remained hemodynamically stable. General exam; young male, awake but noncommunicative. Appears lethargic. Currently in no distress. Exam/Review of Systems Vital Signs Vitals Vital Signs Date Temp Pulse Resp B/P (MAP) Pulse Ox O2 O2 Flow FiO2 Time Delivery Rate 08/07/18 98.6 107 21 111/71 100 Nasal 08:00 (84) Cannula 08/07/18 3.0 07:37 08/07/18 40 03:10 Intake and Output 08/06/18 08/06/18 08/07/18 1515:00 23:00 07:00 IntakeIntake Total 550 ml 1100 ml 705 ml OutputOutput Total 120 ml 285 ml 215 ml BalanceBalance 430 ml 815 ml 490 ml Exam HEENT exam; supple neck, no JVD. No lymphadenopathy. Midline trachea. No thyromegaly. Patient has fair dentition. No neck masses. Chest exam; diminished but clear breath sounds. S1-S2 audible, no murmurs. Regular rhythm. Abdomen exam; soft, no organomegaly. Bowel sounds audible. Nondistended. Extremity exam; peripheral edema clubbing. LINEN TECH exam; patient is awake but noncommunicative. Medications Medications Current Medications Vancomycin HCl (Vanco Iv Per Pharmacy) VANCOMYCIN PER PHARMACY PER PROTOCOL XX ; Start 08/06/18 at 08:30 Cefepime HCl 50 ml @ 100 mls/hr Q12 IVPB Last administered on 08/06/18at 20:14; Admin Dose 100 MLS/HR; Start 08/06/18 at 21:00 Albuterol/ Ipratropium (Duoneb) 3 ml Q6H RESP THERAPY HHN Last administered on 08/07/18at 07:52; Admin Dose 3 ML; Start 08/06/18 at 08:30; Stop 09/05/18 at 12:00 Acetaminophen (Tylenol Supp) 650 mg Q4H PRN [place] MILD PAIN(1-3) OR TEMP>38C; Start 08/06/18 at 08:30 Norepinephrine 250 ml @ 1.875 mls/ hr TITRATE IV ; Start 08/06/18 at 09:00 Potassium Chloride/Dextrose/ Sod Cl 1,000 ml @ 100 mls/hr Q10H IV Last administered on 08/07/18at 01:42; Admin Dose 100 MLS/HR; Start 08/06/18 at 13:00 IV Flush (NS 3 ml) 3 ml PER PROTOCOL IV ; Start 08/06/18 at 12:00 Ondansetron HCl (Zofran Inj) 4 mg Q6H PRN IV NAUSEA AND/OR VOMITING; Start 08/06/18 at 12:00 Albuterol (Proventil 0.083% (Neb)) 2.5 mg Q2H RESP THERAPY PRN NEB SHORTNESS OF BREATH; Start 08/06/18 at 12:00 Ipratropium [place] (Atrovent 0.02% (Neb)) 0.5 mg Q2H RESP THERAPY PRN NEB SHORTNESS OF BREATH; Start 08/06/18 at 12:00 Acetaminophen (Tylenol Liquid) 650 mg Q6H PRN PO PAIN LEVEL 1-3 OR FEVER; Start 08/06/18 at 12:00 Docusate Sodium (Colace) 100 mg Q12H PRN PO CONSTIPATION; Start 08/06/18 at 12:00 Pantoprazole (Protonix Iv) 40 mg DAILY@06 IV Last administered on 08/07/18at 05:47; Admin Dose 40 MG; Start 08/07/18 at 06:00 Aspirin (Aspirin) 81 mg DAILY PO ; Start 08/07/18 at 09:00 Carbidopa/Levodopa (Sinemet Cr (25/ 100)) 1 tab TID PO ; Start 08/06/18 at 15:00 Gabapentin (Neurontin) 900 mg TID PO ; Start 08/06/18 at 14:00 Lactobacillus Acidophilus/ Rhamnosus (Culturelle) 1 cap BID PO ; Start 08/06/18 at 21:00 Memantine (Namenda) 10 mg DAILY PO ; Start 08/07/18 at 09:00 Miscellaneous Information 5 mg Q48H PO ; Start 08/06/18 at 12:30; Status UNV Multivitamins Therapeutic (Theragran) 1 tab DAILY PO ; Start 08/07/18 at 09:00 Vancomycin HCl 100 ml @ 100 mls/hr Q12H IVPB Last administered on 08/07/18at 05:48; Admin Dose 100 MLS/HR; Start 08/06/18 at 18:00 IV Flush (NS 10 ml) 10 ml PRN PRN IV FLUSH LINE; Start 08/06/18 at 15:00 Morphine Sulfate (morphine SULFATE (PF)) 2 mg Q4H PRN IV PAIN LEVEL 7-10 Last administered on 08/06/18at 20:14; Admin Dose 2 MG; Start 08/06/18 at 20:30 Miscellaneous Information (*Rx Drug Level Order Reminder*) VANCO TR LEVEL PRIOR... ONCE ONCE XX ; Start 08/07/18 at 17:00; Stop 08/07/18 at 17:01 DEREK DRAPER Aug 07, 2018 08:46
[2018-08-07] MEDS: CEFEPIME 1GM/50 ML (PMX) 50 ML IVPB SCH ×2 (08:54→20:51)
[2018-08-07] MEDS ORDERED: MULTIVITAMIN PO SCH (09:00)
--- NOTE | 2018-08-07 13:48 | CONS ---
Date/Time of Note Date/Time of Note DATE: 08/07/18 TIME: 13:47 Assessment/Plan Assessment/Plan Hospital Course No acute changes overnight patient is lethargic off pressors in no distress. Vital signs: temperature 97.8, pulse 111 respirations 27 blood pressure 112/76 saturation 96 on nasal cannula WBC 3.6 H&H 7.7 and 27.1 platelets 74 bands 21 BUN 23 creatinine 0.90 urinalysis on admission was negative for nitrite and leukocyte Microbiology: Cultures are negative Indwelling: PICC line and Craft catheter Chest x-ray this morning revealed patchy opacities in the right upper lobe in the left mid to lower lung with interval improved aeration of the left lower lung likely representing multifocal pneumonia Antimicrobials: Cefepime vancomycin Physical examination: This is a chronically ill wasted middle-aged man who is lethargic in no distress. Head atraumatic normocephalic sclera nonicteric. Neck is supple. Chest rise symmetrical breath sounds diminished bases. Heart: S1-S2. Tachycardic, regular. Abdomen soft bowel sounds present extremities without cyanosis Assessment: 1. Severe sepsis status post shock 2. Healthcare associated pneumonia 3. Recently treated C. difficile colitis 4. Non-Hodgkin's lymphoma 5. Parkinson's disease 6. History of DVT and pulmonary emboli status post IVC filter placement 7. Blindness Plan: Patient is stable, on appropriate antibiotics, no diarrhea, continue present care, monitor chest x-ray, follow recommendations of specialists Result Diagram: 08/07/18 0419 08/07/18 0419 Results 24hrs Laboratory Tests Test 08/06/18 14:15 08/06/18 18:40 08/07/18 04:19 08/07/18 07:00 Blood Gas Blood arterial Blood arterial Specimen Source Arterial Blood 08/06/2018 2:10: 08/07/2018 7:30: Date Drawn 28 PM 02 AM Arterial Blood 7.389 7.435 pH (Temp corrected) Arterial Blood 36.0 29.7 L pCO2 (Temp correct) Arterial Blood 110.4 H 86.4 pO2 (Temp corrected) Arterial Blood 21.3 L 19.5 L HCO3 Arterial Blood -3.3 L -4.0 L Base Excess Arterial Blood 97.0 95.5 Oxygen Saturatio n Magdi Test ACCEPTAB ACCEPTAB Arterial Blood Right Radial Right Radial Gas Puncture Site Arterial 0.3 0.1 Blood Carboxyhem oglobin Arterial Blood 0.4 0.3 Methemoglobin Blood Gas A-a O2 205.6 H 92.6 H Differential Oxyhemoglobin 96.3 95.1 Percent Blood Gas 37.0 37.0 Temperature Blood Gas 16.0 Respiration Rate Blood Gas Actual 23 Respiration Rate Blood Gas MASK - BIPAP NASAL CANNULA Modality FiO2 50.0 30.0 Blood Gas 10 Pressure Support Blood Gas 16/6 IPAP/EPAP Ratio Blood Gas KS TM Notified Whom Blood Gas 08/06/2018 2:22: 08/07/2018 8:06: Notified Time 21 PM 36 AM Creatine Kinase 25 < 20 L Creatine Kinase 15.3 Index Creatinine 3.82 H 2.64 H Kinase MB (Mass) Troponin I 0.214 *H 0.159 *H White Blood 3.6 L Count Red Blood Count 2.57 L Hemoglobin 7.7 L Hematocrit 27.1 L Mean Corpuscular 105.4 H Volume Mean Corpuscular 30.0 Hemoglobin Mean Corpuscular 28.4 L Hemoglobin Elise nt Red Cell 22.4 H Distribution Width Platelet Count 74 #L Mean Platelet 12.6 H Volume Immature 0.600 H Granulocytes % Neutrophils % Segmented 50 Neutrophils % (Manual) Band Neutrophils 21 H % (Manual) Lymphocytes % Lymphocytes % 26 (Manual) Monocytes % Monocytes % 3 (Manual) Eosinophils % Basophils % Nucleated Red 3 H Blood Cells % Immature 0.020 Granulocytes # Neutrophils # Neutrophils # 1.8 (Manual) Band Neutrophils 0.7 H # Lymphocytes 0.9 (Manual) Lymphocytes # Monocytes # Monocytes # 0.1 L (Manual) Eosinophils # Basophils # Nucleated Red Blood Cells # Platelet DECREASED Estimate Giant Platelets 1 H Polychromasia 2+ Anisocytosis 1+ Microcytosis 1+ Spherocytes 1+ Sodium Level 147 H Potassium Level 4.5 Chloride Level 120 H Carbon Dioxide 19 L Level Anion Gap 8 Blood Urea 23 H Nitrogen Creatinine 0.90 Est Glomerular > 60 Filtrat Rate mL/min Glucose Level 397 #H Calcium Level 8.7 Phosphorus Level 2.5 Magnesium Level 2.3 Consultation Date/Type/Reason Admit Date/Time Aug 06, 2018 at 00:34 Initial Consult Date Type of Consult id Exam/Review of Systems Vital Signs Vitals Vital Signs Date Temp Pulse Resp B/P (MAP) Pulse Ox O2 O2 Flow FiO2 Time Delivery Rate 08/07/18 97.8 111 27 112/76 99 Nasal 12:00 (88) Cannula 08/07/18 3.0 07:45 08/07/18 40 03:10 Intake and Output 08/06/18 08/06/18 08/07/18 1515:00 23:00 07:00 IntakeIntake Total 550 ml 1100 ml 805 ml OutputOutput Total 120 ml 285 ml 215 ml BalanceBalance 430 ml 815 ml 590 ml Medications Medications Current Medications Vancomycin HCl (Vanco Iv Per Pharmacy) VANCOMYCIN PER PHARMACY PER PROTOCOL XX ; Start 08/06/18 at 08:30 Cefepime HCl 50 ml @ 100 mls/hr Q12 IVPB Last administered on 08/07/18at 08:54; Admin Dose 100 MLS/HR; Start 08/06/18 at 21:00 Albuterol/ Ipratropium (Duoneb) 3 ml Q6H RESP THERAPY HHN Last administered on 08/07/18at 07:52; Admin Dose 3 ML; Start 08/06/18 at 08:30; Stop 09/05/18 at 12:00 Acetaminophen (Tylenol Supp) 650 mg Q4H PRN [place] MILD PAIN(1-3) OR TEMP>38C; Start 08/06/18 at 08:30 Norepinephrine 250 ml @ 1.875 mls/ hr TITRATE IV ; Start 08/06/18 at 09:00 Potassium Chloride/Dextrose/ Sod Cl 1,000 ml @ 100 mls/hr Q10H IV Last administered on 08/07/18at 09:52; Admin Dose 100 MLS/HR; Start 08/06/18 at 13:00 IV Flush (NS 3 ml) 3 ml PER PROTOCOL IV ; Start 08/06/18 at 12:00 Ondansetron HCl (Zofran Inj) 4 mg Q6H PRN IV NAUSEA AND/OR VOMITING; Start 08/06/18 at 12:00 Albuterol (Proventil 0.083% (Neb)) 2.5 mg Q2H RESP THERAPY PRN NEB SHORTNESS OF BREATH; Start 08/06/18 at 12:00 Ipratropium [place] (Atrovent 0.02% (Neb)) 0.5 mg Q2H RESP THERAPY PRN NEB SHORTNESS OF BREATH; Start 08/06/18 at 12:00 Acetaminophen (Tylenol Liquid) 650 mg Q6H PRN PO PAIN LEVEL 1-3 OR FEVER; Start 08/06/18 at 12:00 Docusate Sodium (Colace) 100 mg Q12H PRN PO CONSTIPATION; Start 08/06/18 at 12:00 Pantoprazole (Protonix Iv) 40 mg DAILY@06 IV Last administered on 08/07/18at 05:47; Admin Dose 40 MG; Start 08/07/18 at 06:00 Aspirin (Aspirin) 81 mg DAILY PO ; Start 08/07/18 at 09:00 Carbidopa/Levodopa (Sinemet Cr (25/ 100)) 1 tab TID PO ; Start 08/06/18 at 15:00 Gabapentin (Neurontin) 900 mg TID PO ; Start 08/06/18 at 14:00 Lactobacillus Acidophilus/ Rhamnosus (Culturelle) 1 cap BID PO ; Start 08/06/18 at 21:00 Memantine (Namenda) 10 mg DAILY PO ; Start 08/07/18 at 09:00 Miscellaneous Information 5 mg Q48H PO ; Start 08/06/18 at 12:30; Status UNV Multivitamins Therapeutic (Theragran) 1 tab DAILY PO ; Start 08/07/18 at 09:00 Vancomycin HCl 100 ml @ 100 mls/hr Q12H IVPB Last administered on 08/07/18at 05:48; Admin Dose 100 MLS/HR; Start 08/06/18 at 18:00 IV Flush (NS 10 ml) 10 ml PRN PRN IV FLUSH LINE; Start 08/06/18 at 15:00 Morphine Sulfate (morphine SULFATE (PF)) 2 mg Q4H PRN IV PAIN LEVEL 7-10 Last administered on 08/06/18at 20:14; Admin Dose 2 MG; Start 08/06/18 at 20:30 Miscellaneous Information (*Rx Drug Level Order Reminder*) VANCO TR LEVEL PRIOR... ONCE ONCE XX ; Start 08/07/18 at 17:00; Stop 08/07/18 at 17:01 DIPTI CEDILLO NP Aug 07, 2018 13:48
--- NOTE | 2018-08-07 15:48 | PN ---
Date/Time of Note Date/Time of Note DATE: 08/07/18 TIME: 15:42 Assessment/Plan VTE Prophylaxis [place] [facility] [place] risk: 15 [place] [facility] [place] Yes Pharmacological prophylaxis: NA/contraindicated Pharm contraindication: thrombocytopenia Lines/Catheters IV Catheter Type (from [facility]): PICC Line Central line still needed: Yes Urinary Cath still in place: Yes Reason Cath still needed: urinary retention Assessment/Plan Hospital Course Patient is very lethargic continues on supplemental oxygen via nasal cannula ta chycardic according to RN with short episodes of SVT early in the morning, no diarrhea. Continue ICU care. Assessment/Plan -Sepsis with shock, continue IV fluids, pressors for blood pressure support if needed, continue broad-spectrum antibiotics, follow-up on cultures. Dr. Ramos is following in infection disease consultation. -Acute hypoxic respiratory failure, continue oxygen support diminished supplementation breathing treatment BiPAP as needed. Dr. Bonner is following in pulmonology consultation. -Atrial fibrillation was rapid ventricular response currently in sinus tachycardia. Dr. Ramirez is following in cardiology consultation. -Recurrent C. difficile colitis, patient was on vancomycin and rifaximin prior to admission. 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 -Parkinsonism. Continue Sinemet. -Neuropathy. Continue gabapentin. -Depression. Continue Lexapro. -Legal blindness. No acute issue. -History of deep venous thrombosis and pulmonary embolism in 2011, status post inferior vena cava filter placement. -Severe protein calorie malnutrition -DNR/DNI status Further recommendations based on clinical course. Plan of care discussed with Dr. Mackay. Result Diagram: 08/07/18 0419 08/07/18 0419 Results 24hrs Laboratory Tests Test 08/06/18 18:40 08/07/18 04:19 08/07/18 07:00 Creatine Kinase 25 < 20 L Creatine Kinase Index 15.3 Creatinine Kinase MB (Mass) 3.82 H 2.64 H Troponin I 0.214 *H 0.159 *H White Blood Count 3.6 L Red Blood Count 2.57 L Hemoglobin 7.7 L Hematocrit 27.1 L Mean Corpuscular Volume 105.4 H Mean Corpuscular Hemoglobin 30.0 Mean Corpuscular 28.4 L Hemoglobin Concent Red Cell Distribution Width 22.4 H Platelet Count 74 #L Mean Platelet Volume 12.6 H Immature Granulocytes % 0.600 H Neutrophils % Segmented Neutrophils 50 % (Manual) Band Neutrophils % (Manual) 21 H Lymphocytes % Lymphocytes % (Manual) 26 Monocytes % Monocytes % (Manual) 3 Eosinophils % Basophils % Nucleated Red Blood Cells % 3 H Immature Granulocytes # 0.020 Neutrophils # Neutrophils # (Manual) 1.8 Band Neutrophils # 0.7 H Lymphocytes (Manual) 0.9 Lymphocytes # Monocytes # Monocytes # (Manual) 0.1 L Eosinophils # Basophils # Nucleated Red Blood Cells # Platelet Estimate DECREASED Giant Platelets 1 H Polychromasia 2+ Anisocytosis 1+ Microcytosis 1+ Spherocytes 1+ Sodium Level 147 H Potassium Level 4.5 Chloride Level 120 H Carbon Dioxide Level 19 L Anion Gap 8 Blood Urea Nitrogen 23 H Creatinine 0.90 Est Glomerular Filtrat > 60 Rate mL/min Glucose Level 397 #H Calcium Level 8.7 Phosphorus Level 2.5 Magnesium Level 2.3 Blood Gas Specimen Source Blood arterial Arterial Blood Date Drawn 08/07/2018 7:30:02 AM Arterial Blood pH 7.435 (Temp corrected) Arterial Blood pCO2 29.7 L (Temp correct) Arterial Blood pO2 86.4 (Temp corrected) Arterial Blood HCO3 19.5 L Arterial Blood Base Excess -4.0 L Arterial Blood 95.5 Oxygen Saturation Magdi Test ACCEPTAB Arterial Blood Gas Right Radial Puncture Site Arterial 0.1 Blood Carboxyhemoglobin Arterial Blood Methemoglobin 0.3 Blood Gas A-a O2 92.6 H Differential Oxyhemoglobin Percent 95.1 Blood Gas Temperature 37.0 Blood Gas Modality NASAL CANNULA FiO2 30.0 Blood Gas Notified Whom TM Blood Gas Notified Time 08/07/2018 8:06:36 AM Exam/Review of Systems Vital Signs Vitals Vital Signs Date Temp Pulse Resp B/P (MAP) Pulse Ox O2 O2 Flow FiO2 Time Delivery Rate 08/07/18 97.8 111 27 112/76 99 Nasal 12:00 (88) Cannula 08/07/18 3.0 07:45 08/07/18 40 03:10 Intake and Output 08/06/18 08/06/18 08/07/18 1515:00 23:00 07:00 IntakeIntake Total 550 ml 1100 ml 805 ml OutputOutput Total 120 ml 285 ml 215 ml BalanceBalance 430 ml 815 ml 590 ml Exam Constitutional: alert, frail Eyes: other (Blind) ENMT: nl external ears & nose Neck: supple Respiratory: diminished breath sounds Cardiovascular: regular rate and rhythm Gastrointestinal: soft, non-tender Genitourinary - Male: other (Craft catheter) Neurological: confused, lethargic Skin: nl turgor Medications Medications Current Medications Vancomycin HCl (Vanco Iv Per Pharmacy) VANCOMYCIN PER PHARMACY PER PROTOCOL XX ; Start 08/06/18 at 08:30 Cefepime HCl 50 ml @ 100 mls/hr Q12 IVPB Last administered on 08/07/18at 08:54; Admin Dose 100 MLS/HR; Start 08/06/18 at 21:00 Albuterol/ Ipratropium (Duoneb) 3 ml Q6H RESP THERAPY HHN Last administered on 08/07/18at 07:52; Admin Dose 3 ML; Start 08/06/18 at 08:30; Stop 09/05/18 at 12:00 Acetaminophen (Tylenol Supp) 650 mg Q4H PRN [place] MILD PAIN(1-3) OR TEMP>38C; Start 08/06/18 at 08:30 Norepinephrine 250 ml @ 1.875 mls/ hr TITRATE IV ; Start 08/06/18 at 09:00 Potassium Chloride/Dextrose/ Sod Cl 1,000 ml @ 100 mls/hr Q10H IV Last administered on 08/07/18at 09:52; Admin Dose 100 MLS/HR; Start 08/06/18 at 13:00 IV Flush (NS 3 ml) 3 ml PER PROTOCOL IV ; Start 08/06/18 at 12:00 Ondansetron HCl (Zofran Inj) 4 mg Q6H PRN IV NAUSEA AND/OR VOMITING; Start 08/06/18 at 12:00 Albuterol (Proventil 0.083% (Neb)) 2.5 mg Q2H RESP THERAPY PRN NEB SHORTNESS OF BREATH; Start 08/06/18 at 12:00 Ipratropium [place] (Atrovent 0.02% (Neb)) 0.5 mg Q2H RESP THERAPY PRN NEB SHORTNESS OF BREATH; Start 08/06/18 at 12:00 Acetaminophen (Tylenol Liquid) 650 mg Q6H PRN PO PAIN LEVEL 1-3 OR FEVER; Start 08/06/18 at 12:00 Docusate Sodium (Colace) 100 mg Q12H PRN PO CONSTIPATION; Start 08/06/18 at 12:00 Pantoprazole (Protonix Iv) 40 mg DAILY@06 IV Last administered on 08/07/18at 05:47; Admin Dose 40 MG; Start 08/07/18 at 06:00 Aspirin (Aspirin) 81 mg DAILY PO ; Start 08/07/18 at 09:00 Carbidopa/Levodopa (Sinemet Cr (25/ 100)) 1 tab TID PO ; Start 08/06/18 at 15:00 Gabapentin (Neurontin) 900 mg TID PO ; Start 08/06/18 at 14:00 Lactobacillus Acidophilus/ Rhamnosus (Culturelle) 1 cap BID PO ; Start 08/06/18 at 21:00 Memantine (Namenda) 10 mg DAILY PO ; Start 08/07/18 at 09:00 Miscellaneous Information 5 mg Q48H PO ; Start 08/06/18 at 12:30; Status UNV Multivitamins Therapeutic (Theragran) 1 tab DAILY PO ; Start 08/07/18 at 09:00 Vancomycin HCl 100 ml @ 100 mls/hr Q12H IVPB Last administered on 08/07/18at 05:48; Admin Dose 100 MLS/HR; Start 08/06/18 at 18:00 IV Flush (NS 10 ml) 10 ml PRN PRN IV FLUSH LINE; Start 08/06/18 at 15:00 Morphine Sulfate (morphine SULFATE (PF)) 2 mg Q4H PRN IV PAIN LEVEL 7-10 Last administered on 08/06/18at 20:14; Admin Dose 2 MG; Start 08/06/18 at 20:30 Miscellaneous Information (*Rx Drug Level Order Reminder*) VANCO TR LEVEL PRIOR... ONCE ONCE XX ; Start 08/07/18 at 17:00; Stop 08/07/18 at 17:01 ALEXANDRA TOMLINSON Aug 07, 2018 15:48
--- NOTE | 2018-08-07 15:59 | NUR ---
dr jerome at the bedside and made him aware about the heart rate up to 200's on and off but not sustained that would only last for 10-15 seconds. order recieved.
[2018-08-07] MEDS ORDERED: DILTIAZEM 25 MG INJ IV PRN (16:00)
--- NOTE | 2018-08-07 16:43 | NUR ---
patients heart rate drop from svt high as hr 220's to sinus tach to 110's to 120's after prn cardizem iv push was administered. but the blood pressure now drop to systolic to 60's. page dr. laura jerome regarding this event. waiting for return call.
[2018-08-07] MEDS ORDERED: AMIODARONE 900 MG in DEXTROSE 5% 482 ML IV SCH (17:30)
--- NOTE | 2018-08-07 18:06 | NUR ---
VANCO PER RX PROTOCOL: DAY #2 S/O: AFEB SCR/BUN = 0.9/23 WBC = 3.6 VANCO TR = 20.8 A/P: PT NOT CLEARING VANCO ADEQUATELY, CHANGE VANCO TO 750MG Q 24HR. TR LEVEL WHEN APPROPRIATE TO CHECK VANCO CLEARANCE. WILL CONTINUE TO FOLLOW.
[2018-08-07] MEDS: ACETAMINOPHEN 650 MG SUPP PR PRN (19:40)
--- NOTE | 2018-08-07 20:00 | NUR ---
Temperature 100.7*F, Tylenol suppository given, cooling measures initiated. Will continue to monitor temperature.
--- NOTE | 2018-08-07 21:25 | CONS ---
Date/Time of Note Date/Time of Note DATE: 08/07/18 TIME: 21:22 Assessment/Plan Assessment/Plan Assessment/Plan Severe sepsis Paroxysmal atrial fibrillation, currently sinus rhythm History lymphoma Mild elevated troponin SVT Labile BP with Hypotension -pt npo -given recurrent svt, paf, will start IV amio -AB as per ID -IV fluids, if BP not improving, start IV pressor Result Diagram: 08/07/18 0419 08/07/18 0419 Results 24hrs Laboratory Tests Test 08/07/18 04:19 08/07/18 07:00 08/07/18 17:16 White Blood Count 3.6 L Red Blood Count 2.57 L Hemoglobin 7.7 L Hematocrit 27.1 L Mean Corpuscular Volume 105.4 H Mean Corpuscular Hemoglobin 30.0 Mean Corpuscular 28.4 L Hemoglobin Concent Red Cell Distribution Width 22.4 H Platelet Count 74 #L Mean Platelet Volume 12.6 H Immature Granulocytes % 0.600 H Neutrophils % Segmented Neutrophils 50 % (Manual) Band Neutrophils % (Manual) 21 H Lymphocytes % Lymphocytes % (Manual) 26 Monocytes % Monocytes % (Manual) 3 Eosinophils % Basophils % Nucleated Red Blood Cells % 3 H Immature Granulocytes # 0.020 Neutrophils # Neutrophils # (Manual) 1.8 Band Neutrophils # 0.7 H Lymphocytes (Manual) 0.9 Lymphocytes # Monocytes # Monocytes # (Manual) 0.1 L Eosinophils # Basophils # Nucleated Red Blood Cells # Platelet Estimate DECREASED Giant Platelets 1 H Polychromasia 2+ Anisocytosis 1+ Microcytosis 1+ Spherocytes 1+ Sodium Level 147 H Potassium Level 4.5 Chloride Level 120 H Carbon Dioxide Level 19 L Anion Gap 8 Blood Urea Nitrogen 23 H Creatinine 0.90 Est Glomerular Filtrat > 60 Rate mL/min Glucose Level 397 #H Calcium Level 8.7 Phosphorus Level 2.5 Magnesium Level 2.3 Creatine Kinase < 20 L Creatine Kinase Index Creatinine Kinase MB (Mass) 2.64 H Troponin I 0.159 *H Blood Gas Specimen Source Blood arterial Arterial Blood Date Drawn 08/07/2018 7:30:02 AM Arterial Blood pH 7.435 (Temp corrected) Arterial Blood pCO2 29.7 L (Temp correct) Arterial Blood pO2 86.4 (Temp corrected) Arterial Blood HCO3 19.5 L Arterial Blood Base Excess -4.0 L Arterial Blood 95.5 Oxygen Saturation Magdi Test ACCEPTAB Arterial Blood Gas Right Radial Puncture Site Arterial 0.1 Blood Carboxyhemoglobin Arterial Blood Methemoglobin 0.3 Blood Gas A-a O2 92.6 H Differential Oxyhemoglobin Percent 95.1 Blood Gas Temperature 37.0 Blood Gas Modality NASAL CANNULA FiO2 30.0 Blood Gas Notified Whom TM Blood Gas Notified Time 08/07/2018 8:06:36 AM Vancomycin Level Trough 20.8 *H Consultation Date/Type/Reason Admit Date/Time Aug 06, 2018 at 00:34 Initial Consult Date Type of Consult cv 24 HR Interval Summary Free Text/Dictation pt with brief episodes of svt. BP trend labile Exam/Review of Systems Vital Signs Vitals Vital Signs Date Temp Pulse Resp B/P (MAP) Pulse Ox O2 O2 Flow FiO2 Time Delivery Rate 08/07/18 100.3 20:32 08/07/18 Nasal 4.0 20:15 Cannula 08/07/18 114 26 106/73 96 20:00 (84) 08/07/18 40 03:10 Intake and Output 08/06/18 08/06/18 08/07/18 1515:00 23:00 07:00 IntakeIntake Total 550 ml 1100 ml 805 ml OutputOutput Total 120 ml 285 ml 215 ml BalanceBalance 430 ml 815 ml 590 ml Exam awake, nad, not answering questions, friend at bedside Head: normocephalic Respiratory: other (course bs, no wheeze) Cardiovascular: regular rate and rhythm, other (s1s2) Gastrointestinal: soft, non-tender, bowel sounds Extremities: edema Medications Medications Current Medications Vancomycin HCl (Vanco Iv Per Pharmacy) VANCOMYCIN PER PHARMACY PER PROTOCOL XX ; Start 08/06/18 at 08:30 Cefepime HCl 50 ml @ 100 mls/hr Q12 IVPB Last administered on 08/07/18at 20:51; Admin Dose 100 MLS/HR; Start 08/06/18 at 21:00 Albuterol/ Ipratropium (Duoneb) 3 ml Q6H RESP THERAPY HHN Last administered on 08/07/18at 19:42; Admin Dose 3 ML; Start 08/06/18 at 08:30; Stop 09/05/18 at 12:00 Acetaminophen (Tylenol Supp) 650 mg Q4H PRN [place] MILD PAIN(1-3) OR TEMP>38C Last administered on 08/07/18at 19:40; Admin Dose 650 MG; Start 08/06/18 at 08:30 Norepinephrine 250 ml @ 1.875 mls/ hr TITRATE IV ; Start 08/06/18 at 09:00 Potassium Chloride/Dextrose/ Sod Cl 1,000 ml @ 100 mls/hr Q10H IV Last administered on 08/07/18at 09:52; Admin Dose 100 MLS/HR; Start 08/06/18 at 13:00 IV Flush (NS 3 ml) 3 ml PER PROTOCOL IV ; Start 08/06/18 at 12:00 Ondansetron HCl (Zofran Inj) 4 mg Q6H PRN IV NAUSEA AND/OR VOMITING; Start 08/06/18 at 12:00 Albuterol (Proventil 0.083% (Neb)) 2.5 mg Q2H RESP THERAPY PRN NEB SHORTNESS OF BREATH; Start 08/06/18 at 12:00 Ipratropium [place] (Atrovent 0.02% (Neb)) 0.5 mg Q2H RESP THERAPY PRN NEB SHORTNESS OF BREATH; Start 08/06/18 at 12:00 Acetaminophen (Tylenol Liquid) 650 mg Q6H PRN PO PAIN LEVEL 1-3 OR FEVER; Start 08/06/18 at 12:00 Docusate Sodium (Colace) 100 mg Q12H PRN PO CONSTIPATION; Start 08/06/18 at 12:00 Pantoprazole (Protonix Iv) 40 mg DAILY@06 IV Last administered on 08/07/18at 05:47; Admin Dose 40 MG; Start 08/07/18 at 06:00 Aspirin (Aspirin) 81 mg DAILY PO ; Start 08/07/18 at 09:00 Carbidopa/Levodopa (Sinemet Cr (25/ 100)) 1 tab TID PO ; Start 08/06/18 at 15:00 Gabapentin (Neurontin) 900 mg TID PO ; Start 08/06/18 at 14:00 Lactobacillus Acidophilus/ Rhamnosus (Culturelle) 1 cap BID PO ; Start 08/06/18 at 21:00 Memantine (Namenda) 10 mg DAILY PO ; Start 08/07/18 at 09:00 Miscellaneous Information 5 mg Q48H PO ; Start 08/06/18 at 12:30; Status UNV Multivitamins Therapeutic (Theragran) 1 tab DAILY PO ; Start 08/07/18 at 09:00 IV Flush (NS 10 ml) 10 ml PRN PRN IV FLUSH LINE; Start 08/06/18 at 15:00 Morphine Sulfate (morphine SULFATE (PF)) 2 mg Q4H PRN IV PAIN LEVEL 7-10 Last administered on 08/06/18at 20:14; Admin Dose 2 MG; Start 08/06/18 at 20:30 Diltiazem HCl (Cardizem Iv) 10 mg Q1H PRN IV IV PROTOCOL Last administered on 08/07/18at 16:14; Admin Dose 10 MG; Start 08/07/18 at 16:00 Amiodarone HCl 900 mg/Dextrose 500 ml @ 0 mls/hr Q0M IV Last administered on 08/07/18at 20:00; Admin Dose 33.4 MLS/HR; Start 08/07/18 at 17:30; Stop 08/08/18 at 17:29 Vancomycin/Sodium Chloride 250 ml @ 125 mls/hr Q24H IVPB ; Start 08/08/18 at 06:00 Nito Ramirez DO Aug 07, 2018 21:25
--- NOTE | 2018-08-07 21:41 | RADRPT ---
Echocardiogram Report Patient Name: MEHREEN ROBISON Gender: Male Date: 1965 Study Date: 07-Aug-2018 Food Inspector: Sundeep Mariano RDCS Location: 118 Ref. Physician: NITO WATTS Quality: Adequate Procedures: Transthoracic echocardiogram with complete 2D, M-Mode, and doppler examination. Indications: Shock. Atrial Fibrillation. 2D/M Mode Doppler Measurement Value Normal Ranges Measurement Value Normal Ranges LVIDd 2D 3.7 3.5 - 5.6 cm AV Peak Jeyson 1.8 m/sec LVIDs 2D 2.0 2.1 - 4.1 cm AV Peak PG 13.0 mmHg FS 2D 44.1 % LVOT Peak Jeyson 2.1 m/sec LVPWd 2D 1.0 0.6 - 1.1 cm LVOT Peak PG 17.0 mmHg IVSd 2D 1.4 0.6 - 1.1 cm MV E Peak Jeyson 0.7 m/sec IVS/LVPW 2D 1.4 MV A Peak Jeyson 0.9 m/sec AoR Diam 2D 2.7 2.0 - 3.7 cm MV E/A 0.9 LA/Ao 2D 1 0 - 1 MV Decel Time 169 msec EDV 2D 49.4 cm3 MV E/A 0.9 ESV 2D 8.6 cm3 TR Peak Jeyson 1.8 m/sec LA Dimen 2D 2.8 2.3 - 4.0 cm TR Peak PG 12.0 mmHg RVSP 15.0 mmHg RA Pressure 3.0 Findings Left Ventricle: Hyperdynamic left ventricular systolic function. Normal left ventricular cavity size. Moderate concentric left ventricular hypertrophy. Ejection fraction is visually estimated at 70 %. Tissue Doppler/Mitral Doppler indices are consistent with impaired relaxation (Stage I diastolic dysfunction). Right Ventricle: Normal right ventricular size. Normal right ventricular systolic function. Left Atrium: The left atrium is normal in size. Right Atrium: The right atrium is normal in size. Mitral Valve: Normal appearance and function of the mitral valve with trace physiologic regurgitation. Aortic Valve: No significant aortic stenosis or insufficiency. Aortic cusps appear mildly calcified. Tricuspid Valve: Normal appearance and function of the tricuspid valve with trace physiologic regurgitation. Estimated peak PA systolic pressure 15 mmHg. Pulmonic Valve: Normal pulmonic valve appearance. Pericardium: Normal pericardium with no significant pericardial effusion. Aorta: Normal aortic root. IVC: Normal size and normal respiratory collapse consistent with normal right atrial pressure. Conclusions Hyperdynamic left ventricular systolic function. Normal left ventricular cavity size. Moderate concentric left ventricular hypertrophy. Ejection fraction is visually estimated at 70 %. Tissue Doppler/Mitral Doppler indices are consistent with impaired relaxation (Stage I diastolic dysfunction). Normal right ventricular size. Normal right ventricular systolic function. The left atrium is normal in size. The right atrium is normal in size. No significant valvular stenosis or regurgitation seen. Normal pericardium with no significant pericardial effusion. Electronically Signed By: Nito Watts 07-Aug-2018 21:40:56 -0800 Patient Name: MEHREEN ROBISON Study Date: 07-Aug-[id number]
[2018-08-08] VITALS (32 sets, daily range): BP systolic 91–135; BP diastolic 52–84; PULSE 94–173; RESP 20–53
[2018-08-08] MEDS: ALBUTEROL/IPRATROPIUM (NEB) 3 ML AMP HHN SCH ×4 (01:44→20:19)
[2018-08-08] MEDS: D5W-0.45 NACL + KCL 20 MEQ 1,000 ML IV SCH ×2 (05:00→10:07)
[2018-08-08] MEDS: PANTOPRAZOLE 40 MG INJ IV SCH (05:14)
[2018-08-08] MEDS: VANCOMYCIN 750 MG (PMX) 250 ML IVPB SCH (05:16)
--- NOTE | 2018-08-08 06:21 | NUR ---
Patient A/O X1, responds to his name, unable to follow commands. Patient's friends were at bedside in the beginning of the night. Patient was adjusted on 2-4 L O2 via NC with sats >92% Lungs course bilateral lobes. Patient currently running amiodarone drip at 0.5 mg/hr. T-max 100.7*F, cooling measures were initiated, pt temp currently remains stable. Turned q2hrs, madsen catheter in place.
[2018-08-08] MEDS: MULTIVITAMINS THERAPEUTIC TAB PO SCH (08:33)
[2018-08-08] MEDS: CARBIDOPA/LEVODOPA 25-100 (CR) TAB PO SCH ×3 (08:33→20:44)
[2018-08-08] MEDS: LACTOBACILLUS RHAMNOSUS CAP PO SCH ×2 (08:33→20:44)
[2018-08-08] MEDS: ASPIRIN 81 MG TAB PO SCH (08:33)
[2018-08-08] MEDS: MEMANTINE 10 MG TAB PO SCH (08:33)
[2018-08-08] MEDS: GABAPENTIN 300 MG CAP PO SCH ×3 (08:33→20:44)
[2018-08-08] MEDS: CEFEPIME 1GM/50 ML (PMX) 50 ML IVPB SCH (08:48)
--- NOTE | 2018-08-08 10:38 | NUR ---
Bedside swallow evaluation completed: Patient is a 53 y/o male admitted to ICU with sepsis w/ shock, acute hypoxic respiratory failure, atrial fibrillation, recurrent C.Diff, AMS, Severe protein calorie malnutrition, and possible healthcare acquired PNA. 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 protein calorie malnutrition. He is very lethargic, with limited responsiveness, and continues on supplemental oxygen via nasal cannula. Per RN, he is tachycardic with short episodes of SVT early in the morning. He is currently NPO. He is familiar to ST department from previous admission, when he received an MBS. He was tolerating a diet of finely chopped solids/ thin liquids with supplemental PEG feedings for nutrition, as he was not taking enough nutrition PO prior to previous admission either. RN reports patient returned to a regular diet with thin liquids at his nursing facility and his PEG was removed after it became infected. He is however, quite malnourished. Patient is unable to follow instructions to complete oral mech exam. He is responsive when addressed by name and answers basic yes/ no questions to express basic wants/ needs. He does not benefit from tactile prompting to participate in oral mech. Reduced mentation / cognition from previous admission. Attempted two ice chips (smaller than a dime size). Pt with reduced bolus manipulation. Suspect red. bolus control and premature spillage of melted ice chip. Does not appear to independently initiate a/p transit. No initiation of pharyngeal swallow observed. Session discontinued. Profound oropharyngeal dysphagia, impacted by reduced mentation and characterized by absent pharyngeal swallow. Recommendations: Cont. NPO Strict aspiration precautions and oral care guidelines ST to f/u as patient becomes able to participate Addendum: 08/08/18 at [address] Amended: Links added.
--- NOTE | 2018-08-08 10:56 | CONS ---
Date/Time of Note Date/Time of Note DATE: 08/08/18 TIME: 10:51 Consult Date/Type/Reason Admit Date/Time Aug 06, 2018 at 00:34 Initial Consult Date Type of Consultation: Pulm Subjective Afib with rvr, started on amiodarone drip, failed ST eval. Objective Vital Signs Date Temp Pulse Resp B/P (MAP) Pulse Ox O2 O2 Flow FiO2 Time Delivery Rate 08/08/18 104 30 109/80 96 Nasal 3.0 09:00 (90) Cannula 08/08/18 98.5 08:00 08/07/18 40 03:10 Intake and Output 08/07/18 08/07/18 08/08/18 1515:00 23:00 07:00 IntakeIntake Total 800 ml 950.2 ml 650.3 ml OutputOutput Total 250 ml 305 ml 218 ml BalanceBalance 550 ml 645.2 ml 432.3 ml Exam PHYSICAL EXAMINATION: GENERAL: Chronically ill, cachectic looking gentleman with contractures on bilevel ventilation. VITAL SIGNS: NECK: Somewhat rigid. No JVD. CARDIAC: S1, S2, tachycardia. CHEST: Diminished air entry bilaterally. ABDOMEN: Soft, nontender. No guarding or rebound. EXTREMITIES: No cyanosis, clubbing, edema. NEUROLOGIC: Generalized weakness. Results/Medications Result Diagram: 08/08/18 0400 08/08/18 0400 Results 24 hrs Laboratory Tests Test 08/07/18 17:16 08/08/18 04:00 Vancomycin Level Trough 20.8 *H White Blood Count 5.1 # Red Blood Count 2.68 L Hemoglobin 8.2 L Hematocrit 28.2 L Mean Corpuscular Volume 105.2 H Mean Corpuscular Hemoglobin 30.6 Mean Corpuscular Hemoglobin Concent 29.1 L Red Cell Distribution Width 22.4 H Platelet Count 77 L Mean Platelet Volume 13.1 H Immature Granulocytes % 0.800 H Neutrophils % Segmented Neutrophils % (Manual) 71 Band Neutrophils % (Manual) 8 H Lymphocytes % Lymphocytes % (Manual) 16 Monocytes % Monocytes % (Manual) 4 Eosinophils % Basophils % Basophils % (Manual) 1 Nucleated Red Blood Cells % 0.8 H Immature Granulocytes # 0.040 H Neutrophils # Neutrophils # (Manual) 3.6 Band Neutrophils # 0.4 Lymphocytes (Manual) 0.8 Lymphocytes # Monocytes # Monocytes # (Manual) 0.2 L Eosinophils # Basophils # Basophils # (Manual) 0.0 Nucleated Red Blood Cells # Platelet Estimate DECREASED Polychromasia 2+ Poikilocytosis 1+ Anisocytosis 1+ Microcytosis 1+ Sodium Level 148 H Potassium Level 3.0 L Chloride Level 117 H Carbon Dioxide Level 20 L Anion Gap 11 Blood Urea Nitrogen 20 Creatinine 0.93 Est Glomerular Filtrat Rate mL/min > 60 Glucose Level 138 # Calcium Level 9.3 Phosphorus Level 1.7 L Magnesium Level 2.0 Medications Current Medications Vancomycin HCl (Vanco Iv Per Pharmacy) VANCOMYCIN PER PHARMACY PER PROTOCOL XX ; Start 08/06/18 at 08:30 Cefepime HCl 50 ml @ 100 mls/hr Q12 IVPB Last administered on 08/08/18at 08:48; Admin Dose 100 MLS/HR; Start 08/06/18 at 21:00 Albuterol/ Ipratropium (Duoneb) 3 ml Q6H RESP THERAPY HHN Last administered on 08/08/18at 08:37; Admin Dose 3 ML; Start 08/06/18 at 08:30; Stop 09/05/18 at 12:00 Acetaminophen (Tylenol Supp) 650 mg Q4H PRN [place] MILD PAIN(1-3) OR TEMP>38C Last administered on 08/07/18at 19:40; Admin Dose 650 MG; Start 08/06/18 at 08:30 Norepinephrine 250 ml @ 1.875 mls/ hr TITRATE IV ; Start 08/06/18 at 09:00 Potassium Chloride/Dextrose/ Sod Cl 1,000 ml @ 100 mls/hr Q10H IV Last administered on 08/08/18at 10:07; Admin Dose 100 MLS/HR; Start 08/06/18 at 13:00 IV Flush (NS 3 ml) 3 ml PER PROTOCOL IV ; Start 08/06/18 at 12:00 Ondansetron HCl (Zofran Inj) 4 mg Q6H PRN IV NAUSEA AND/OR VOMITING; Start 08/06/18 at 12:00 Albuterol (Proventil 0.083% (Neb)) 2.5 mg Q2H RESP THERAPY PRN NEB SHORTNESS OF BREATH; Start 08/06/18 at 12:00 Ipratropium [place] (Atrovent 0.02% (Neb)) 0.5 mg Q2H RESP THERAPY PRN NEB SHORTNESS OF BREATH; Start 08/06/18 at 12:00 Acetaminophen (Tylenol Liquid) 650 mg Q6H PRN PO PAIN LEVEL 1-3 OR FEVER; Start 08/06/18 at 12:00 Docusate Sodium (Colace) 100 mg Q12H PRN PO CONSTIPATION; Start 08/06/18 at 12:00 Pantoprazole (Protonix Iv) 40 mg DAILY@06 IV Last administered on 08/08/18at 05:14; Admin Dose 40 MG; Start 08/07/18 at 06:00 Aspirin (Aspirin) 81 mg DAILY PO ; Start 08/07/18 at 09:00 Carbidopa/Levodopa (Sinemet Cr (25/ 100)) 1 tab TID PO ; Start 08/06/18 at 15:00 Gabapentin (Neurontin) 900 mg TID PO ; Start 08/06/18 at 14:00 Lactobacillus Acidophilus/ Rhamnosus (Culturelle) 1 cap BID PO ; Start 08/06/18 at 21:00 Memantine (Namenda) 10 mg DAILY PO ; Start 08/07/18 at 09:00 Miscellaneous Information 5 mg Q48H PO ; Start 08/06/18 at 12:30; Status UNV Multivitamins Therapeutic (Theragran) 1 tab DAILY PO ; Start 08/07/18 at 09:00 IV Flush (NS 10 ml) 10 ml PRN PRN IV FLUSH LINE; Start 08/06/18 at 15:00 Morphine Sulfate (morphine SULFATE (PF)) 2 mg Q4H PRN IV PAIN LEVEL 7-10 Last a dministered on 08/06/18at 20:14; Admin Dose 2 MG; Start 08/06/18 at 20:30 Diltiazem HCl (Cardizem Iv) 10 mg Q1H PRN IV IV PROTOCOL Last administered on 08/07/18at 16:14; Admin Dose 10 MG; Start 08/07/18 at 16:00 Amiodarone HCl 900 mg/Dextrose 500 ml @ 0 mls/hr Q0M IV Last administered on 08/07/18at 20:00; Admin Dose 33.4 MLS/HR; Start 08/07/18 at 17:30; Stop 08/08/18 at 17:29 Vancomycin/Sodium Chloride 250 ml @ 125 mls/hr Q24H IVPB Last administered on 08/08/18at 05:16; Admin Dose 125 MLS/HR; Start 08/08/18 at 06:00 Assessment/Plan Chief Complaint/Hosp Course IMPRESSION 1. Possible aspiration pneumonia. 2. Acute on chronic hypoxemic respiratory failure. 3. Mild respiratory acidosis. 4. Significant lactic acidosis secondary to sepsis. 5. Severe Parkinson's disease. 6. History of pulmonary embolus status post IVC filter placement. 7. Afib RVR 8. Stage 4 decub 9. Dysphagia. Plan 1. Aspiration precautions. 2. Cont. antibiotics. 3. Sputum and blood cultures. 4. Deep vein thrombosis and gastrointestinal prophylaxis. 5. Consider peg vs NG tube. 6. Aspiration precautions. cc time 40 mins. DANTE ENG MD, [facility] Aug 08, 2018 10:56
--- NOTE | 2018-08-08 11:20 | NUR ---
Wound Care Consult: The patient is a 53-year-old male with history of non-Hodgkin's lymphoma status post radiation therapy patient follows with Dr. Pita Leger at [facility] and currently in remission on routine Revlimid. Patient has a history of Parkinson's disease, recurrent C. difficile colitis and was treated on vancomycin and rifampin at [facility], history of sepsis neuropathy, history of DVT and pulmonary embolism, status post IVC filter placement, blindness, and depression. Patient has a history of G-tube placement and subsequent G-tube removal and was taking p.o. at [facility] facility, however, his food intake and appetite was declining lately. Patient was brought by an ambulance to [facility] ER for evaluation of altered mental status. Wound care team consulted for wounds present on admission Sacrococcyx pressure ulcer stage 4. 4cm x 1.1cm 0.5cm, undermining 3 o'clock to 9 o' clock measuring 1.2cm Wound bed with noted pink colored tissue (50%) and yellow adhering slough (50%). Bone exposed and able to palpate. small to moderate Serosanguineous drainage noted. Periwound intact. Slight tender to feel. No odor. Treatment recommendation include, cleanse with normal saline, pat dry, pack wound cavity with Santyl-saline infused 1/2 strip dressing covered with dry dressing secured with foam border dressing daily and as needed. Bilateral heels intact and noted pigmented brown spots. Keep clean and intact. Reposition every 2 hours per department protocol Continue use of low air loss mattress Elevate heels with pillow for off-loading WOCN discussed with ayana Bhatia physical therapist technician and treatment recommendation. Gabe Mahmood RN MSN WOCN CM
[2018-08-08] MEDS ORDERED: POTASSIUM CHLORIDE 100 ML IVPB SCH (12:00)
[2018-08-08] MEDS ORDERED: MAGNESIUM SULFATE 2 GM/50 ML 50 ML IVPB ONE (12:00)
--- NOTE | 2018-08-08 12:33 | CONS ---
Date/Time of Note Date/Time of Note DATE: 08/08/18 TIME: 12:30 Assessment/Plan Assessment/Plan Assessment/Plan Severe sepsis Preserved ejection fraction Paroxysmal atrial fibrillation, currently sinus rhythm History lymphoma Mild elevated troponin SVT Labile BP with Hypotension -pt remains npo -given recurrent svt, paf, and not able to tolerate p.o. meds, patient on IV amiodarone, would continue with the current time given less episodes of A. fib since initiation -Echocardiogram with hyperdynamic LV function as well as small collapsed IVC, would order IV fluids -AB as per ID -Maintain potassium above 4.0 and magnesium above 2.0, supplementation has been ordered Result Diagram: 08/08/18 0400 08/08/18 0400 Results 24hrs Laboratory Tests Test 08/07/18 17:16 08/08/18 04:00 Vancomycin Level Trough 20.8 *H White Blood Count 5.1 # Red Blood Count 2.68 L Hemoglobin 8.2 L Hematocrit 28.2 L Mean Corpuscular Volume 105.2 H Mean Corpuscular Hemoglobin 30.6 Mean Corpuscular Hemoglobin Concent 29.1 L Red Cell Distribution Width 22.4 H Platelet Count 77 L Mean Platelet Volume 13.1 H Immature Granulocytes % 0.800 H Neutrophils % Segmented Neutrophils % (Manual) 71 Band Neutrophils % (Manual) 8 H Lymphocytes % Lymphocytes % (Manual) 16 Monocytes % Monocytes % (Manual) 4 Eosinophils % Basophils % Basophils % (Manual) 1 Nucleated Red Blood Cells % 0.8 H Immature Granulocytes # 0.040 H Neutrophils # Neutrophils # (Manual) 3.6 Band Neutrophils # 0.4 Lymphocytes (Manual) 0.8 Lymphocytes # Monocytes # Monocytes # (Manual) 0.2 L Eosinophils # Basophils # Basophils # (Manual) 0.0 Nucleated Red Blood Cells # Platelet Estimate DECREASED Polychromasia 2+ Poikilocytosis 1+ Anisocytosis 1+ Microcytosis 1+ Sodium Level 148 H Potassium Level 3.0 L Chloride Level 117 H Carbon Dioxide Level 20 L Anion Gap 11 Blood Urea Nitrogen 20 Creatinine 0.93 Est Glomerular Filtrat Rate mL/min > 60 Glucose Level 138 # Calcium Level 9.3 Phosphorus Level 1.7 L Magnesium Level 2.0 Consultation Date/Type/Reason Admit Date/Time Aug 06, 2018 at 00:34 Initial Consult Date Type of Consult cv 24 HR Interval Summary Free Text/Dictation Little more awake today. Less episodes of A. fib with RVR Exam/Review of Systems Vital Signs Vitals Vital Signs Date Temp Pulse Resp B/P (MAP) Pulse Ox O2 O2 Flow FiO2 Time Delivery Rate 08/08/18 95 21 93/69 (77) 97 Nasal 3.0 11:00 Cannula 08/08/18 98.5 08:00 08/07/18 40 03:10 Intake and Output 08/07/18 08/07/18 08/08/18 1414:59 22:59 06:59 IntakeIntake Total 800 ml 916.8 ml 783.7 ml OutputOutput Total 200 ml 312 ml 261 ml BalanceBalance 600 ml 604.8 ml 522.7 ml Exam Awake, not answering questions, friend at bedside, no apparent distress Head: normocephalic Respiratory: other (Coarse breath sounds bilaterally, no wheezing) Cardiovascular: regular rate and rhythm, other (S1-S2 heard) Gastrointestinal: soft, non-tender, bowel sounds Extremities: edema Medications Medications Current Medications Vancomycin HCl (Vanco Iv Per Pharmacy) VANCOMYCIN PER PHARMACY PER PROTOCOL XX ; Start 08/06/18 at 08:30 Cefepime HCl 50 ml @ 100 mls/hr Q12 IVPB Last administered on 08/08/18at 08:48; Admin Dose 100 MLS/HR; Start 08/06/18 at 21:00 Albuterol/ Ipratropium (Duoneb) 3 ml Q6H RESP THERAPY HHN Last administered on 08/08/18at 08:37; Admin Dose 3 ML; Start 08/06/18 at 08:30; Stop 09/05/18 at 12:00 Acetaminophen (Tylenol Supp) 650 mg Q4H PRN [place] MILD PAIN(1-3) OR TEMP>38C Last administered on 08/07/18at 19:40; Admin Dose 650 MG; Start 08/06/18 at 08:30 Norepinephrine 250 ml @ 1.875 mls/ hr TITRATE IV ; Start 08/06/18 at 09:00 Potassium Chloride/Dextrose/ Sod Cl 1,000 ml @ 100 mls/hr Q10H IV Last administered on 08/08/18at 10:07; Admin Dose 100 MLS/HR; Start 08/06/18 at 13:00 IV Flush (NS 3 ml) 3 ml PER PROTOCOL IV ; Start 08/06/18 at 12:00 Ondansetron HCl (Zofran Inj) 4 mg Q6H PRN IV NAUSEA AND/OR VOMITING; Start 08/06/18 at 12:00 Albuterol (Proventil 0.083% (Neb)) 2.5 mg Q2H RESP THERAPY PRN NEB SHORTNESS OF BREATH; Start 08/06/18 at 12:00 Ipratropium [place] (Atrovent 0.02% (Neb)) 0.5 mg Q2H RESP THERAPY PRN NEB SHORTNESS OF BREATH; Start 08/06/18 at 12:00 Acetaminophen (Tylenol Liquid) 650 mg Q6H PRN PO PAIN LEVEL 1-3 OR FEVER; Start 08/06/18 at 12:00 Docusate Sodium (Colace) 100 mg Q12H PRN PO CONSTIPATION; Start 08/06/18 at 12:00 Pantoprazole (Protonix Iv) 40 mg DAILY@06 IV Last administered on 08/08/18at 05:14; Admin Dose 40 MG; Start 08/07/18 at 06:00 Aspirin (Aspirin) 81 mg DAILY PO ; Start 08/07/18 at 09:00 Carbidopa/Levodopa (Sinemet Cr (25/ 100)) 1 tab TID PO ; Start 08/06/18 at 15:00 Gabapentin (Neurontin) 900 mg TID PO ; Start 08/06/18 at 14:00 Lactobacillus Acidophilus/ Rhamnosus (Culturelle) 1 cap BID PO ; Start 08/06/18 at 21:00 Memantine (Namenda) 10 mg DAILY PO ; Start 08/07/18 at 09:00 Miscellaneous Information 5 mg Q48H PO ; Start 08/06/18 at 12:30; Status UNV Multivitamins Therapeutic (Theragran) 1 tab DAILY PO ; Start 08/07/18 at 09:00 IV Flush (NS 10 ml) 10 ml PRN PRN IV FLUSH LINE; Start 08/06/18 at 15:00 Morphine Sulfate (morphine SULFATE (PF)) 2 mg Q4H PRN IV PAIN LEVEL 7-10 Last administered on 08/06/18at 20:14; Admin Dose 2 MG; Start 08/06/18 at 20:30 Diltiazem HCl (Cardizem Iv) 10 mg Q1H PRN IV IV PROTOCOL Last administered on 08/07/18at 16:14; Admin Dose 10 MG; Start 08/07/18 at 16:00 Amiodarone HCl 900 mg/Dextrose 500 ml @ 0 mls/hr Q0M IV Last administered on 08/07/18at 20:00; Admin Dose 33.4 MLS/HR; Start 08/07/18 at 17:30; Stop 08/08/18 at 17:29 Vancomycin/Sodium Chloride 250 ml @ 125 mls/hr Q24H IVPB Last administered on 08/08/18at 05:16; Admin Dose 125 MLS/HR; Start 08/08/18 at 06:00 Magnesium Sulfate 50 ml @ 25 mls/hr ONCE ONCE IVPB Last administered on 08/08/18at 12:22; Admin Dose 25 MLS/HR; Start 08/08/18 at 12:00; Stop 08/08/18 at 13:59 Potassium Chloride 100 ml @ 50 mls/hr Q2H IVPB ; Start 08/08/18 at 12:00; Stop 08/08/18 at 19:59 Nito Ramirez DO Aug 08, 2018 12:33
--- NOTE | 2018-08-08 13:02 | PN ---
Date/Time of Note Date/Time of Note DATE: 08/08/18 TIME: 13:00 Assessment/Plan VTE Prophylaxis Risk score (from [facility] [place]0 risk: 11 SCD applied (from [facility] [place]): Yes SCD contraindicated: other Pharmacological prophylaxis: other Pharm contraindication: other Lines/Catheters IV Catheter Type (from [facility]): PICC Line Central line still needed: Yes Urinary Cath still in place: No Assessment/Plan Assessment/Plan -Sepsis with shock, continue IV fluids, pressors for blood pressure support if needed, continue broad-spectrum antibiotics, follow-up on cultures. Dr. Ramos is following in infection disease consultation. -Acute hypoxic respiratory failure, continue oxygen support diminished supplementation breathing treatment BiPAP as needed. Dr. Bonner is following in pulmonology consultation. -Atrial fibrillation was rapid ventricular response currently in sinus tachycardia. Dr. Ramirez is following in cardiology consultation. -Recurrent C. difficile colitis, patient was on vancomycin and rifaximin prior to admission. 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 -Parkinsonism. Continue Sinemet. -Neuropathy. Continue gabapentin. -Depression. Continue Lexapro. -Legal blindness. No acute issue. -History of deep venous thrombosis and pulmonary embolism in 2011, status post inferior vena cava filter placement. -Severe protein calorie malnutrition -DNR/DNI status Further recommendations based on clinical course. Plan of care discussed with Dr. Mackay. Result Diagram: 08/08/18 0400 08/08/18 0400 Results 24hrs Laboratory Tests Test 08/07/18 17:16 08/08/18 04:00 Vancomycin Level Trough 20.8 *H White Blood Count 5.1 # Red Blood Count 2.68 L Hemoglobin 8.2 L Hematocrit 28.2 L Mean Corpuscular Volume 105.2 H Mean Corpuscular Hemoglobin 30.6 Mean Corpuscular Hemoglobin Concent 29.1 L Red Cell Distribution Width 22.4 H Platelet Count 77 L Mean Platelet Volume 13.1 H Immature Granulocytes % 0.800 H Neutrophils % Segmented Neutrophils % (Manual) 71 Band Neutrophils % (Manual) 8 H Lymphocytes % Lymphocytes % (Manual) 16 Monocytes % Monocytes % (Manual) 4 Eosinophils % Basophils % Basophils % (Manual) 1 Nucleated Red Blood Cells % 0.8 H Immature Granulocytes # 0.040 H Neutrophils # Neutrophils # (Manual) 3.6 Band Neutrophils # 0.4 Lymphocytes (Manual) 0.8 Lymphocytes # Monocytes # Monocytes # (Manual) 0.2 L Eosinophils # Basophils # Basophils # (Manual) 0.0 Nucleated Red Blood Cells # Platelet Estimate DECREASED Polychromasia 2+ Poikilocytosis 1+ Anisocytosis 1+ Microcytosis 1+ Sodium Level 148 H Potassium Level 3.0 L Chloride Level 117 H Carbon Dioxide Level 20 L Anion Gap 11 Blood Urea Nitrogen 20 Creatinine 0.93 Est Glomerular Filtrat Rate mL/min > 60 Glucose Level 138 # Calcium Level 9.3 Phosphorus Level 1.7 L Magnesium Level 2.0 Subjective 24 Hr Interval Summary Free Text/Dictation Low K, PHOS - jacinda give KPhos 20 meq x 1 Exam/Review of Systems Vital Signs Vitals Vital Signs Date Temp Pulse Resp B/P (MAP) Pulse Ox O2 O2 Flow FiO2 Time Delivery Rate 08/08/18 95 21 93/69 (77) 97 Nasal 3.0 11:00 Cannula 08/08/18 98.5 08:00 08/07/18 40 03:10 Intake and Output 08/07/18 08/07/18 08/08/18 1515:00 23:00 07:00 IntakeIntake Total 800 ml 950.2 ml 650.3 ml OutputOutput Total 250 ml 305 ml 218 ml BalanceBalance 550 ml 645.2 ml 432.3 ml Medications Medications Current Medications Vancomycin HCl (Vanco Iv Per Pharmacy) VANCOMYCIN PER PHARMACY PER PROTOCOL XX ; Start 08/06/18 at 08:30 Cefepime HCl 50 ml @ 100 mls/hr Q12 IVPB Last administered on 08/08/18at 08:48; Admin Dose 100 MLS/HR; Start 08/06/18 at 21:00 Albuterol/ Ipratropium (Duoneb) 3 ml Q6H RESP THERAPY HHN Last administered on 08/08/18at 08:37; Admin Dose 3 ML; Start 08/06/18 at 08:30; Stop 09/05/18 at 12:00 Acetaminophen (Tylenol Supp) 650 mg Q4H PRN [place] MILD PAIN(1-3) OR TEMP>38C Last administered on 08/07/18at 19:40; Admin Dose 650 MG; Start 08/06/18 at 08:30 Norepinephrine 250 ml @ 1.875 mls/ hr TITRATE IV ; Start 08/06/18 at 09:00 IV Flush (NS 3 ml) 3 ml PER PROTOCOL IV ; Start 08/06/18 at 12:00 Ondansetron HCl (Zofran Inj) 4 mg Q6H PRN IV NAUSEA AND/OR VOMITING; Start 08/06/18 at 12:00 Albuterol (Proventil 0.083% (Neb)) 2.5 mg Q2H RESP THERAPY PRN NEB SHORTNESS OF BREATH; Start 08/06/18 at 12:00 Ipratropium [place] (Atrovent 0.02% (Neb)) 0.5 mg Q2H RESP THERAPY PRN NEB SHORTNESS OF BREATH; Start 08/06/18 at 12:00 Acetaminophen (Tylenol Liquid) 650 mg Q6H PRN PO PAIN LEVEL 1-3 OR FEVER; Start 08/06/18 at 12:00 Docusate Sodium (Colace) 100 mg Q12H PRN PO CONSTIPATION; Start 08/06/18 at 12:00 Pantoprazole (Protonix Iv) 40 mg DAILY@06 IV Last administered on 08/08/18at 05:14; Admin Dose 40 MG; Start 08/07/18 at 06:00 Aspirin (Aspirin) 81 mg DAILY PO ; Start 08/07/18 at 09:00 Carbidopa/Levodopa (Sinemet Cr (25/ 100)) 1 tab TID PO ; Start 08/06/18 at 15:00 Gabapentin (Neurontin) 900 mg TID PO ; Start 08/06/18 at 14:00 Lactobacillus Acidophilus/ Rhamnosus (Culturelle) 1 cap BID PO ; Start 08/06/18 at 21:00 Memantine (Namenda) 10 mg DAILY PO ; Start 08/07/18 at 09:00 Miscellaneous Information 5 mg Q48H PO ; Start 08/06/18 at 12:30; Status UNV Multivitamins Therapeutic (Theragran) 1 tab DAILY PO ; Start 08/07/18 at 09:00 IV Flush (NS 10 ml) 10 ml PRN PRN IV FLUSH LINE; Start 08/06/18 at 15:00 Morphine Sulfate (morphine SULFATE (PF)) 2 mg Q4H PRN IV PAIN LEVEL 7-10 Last administered on 08/06/18at 20:14; Admin Dose 2 MG; Start 08/06/18 at 20:30 Diltiazem HCl (Cardizem Iv) 10 mg Q1H PRN IV IV PROTOCOL Last administered on 08/07/18at 16:14; Admin Dose 10 MG; Start 08/07/18 at 16:00 Amiodarone HCl 900 mg/Dextrose 500 ml @ 0 mls/hr Q0M IV Last administered on 08/07/18at 20:00; Admin Dose 33.4 MLS/HR; Start 08/07/18 at 17:30; Stop 08/08/18 at 17:29 Vancomycin/Sodium Chloride 250 ml @ 125 mls/hr Q24H IVPB Last administered on 08/08/18at 05:16; Admin Dose 125 MLS/HR; Start 08/08/18 at 06:00 Magnesium Sulfate 50 ml @ 25 mls/hr ONCE ONCE IVPB Last administered on 08/08/18at 12:22; Admin Dose 25 MLS/HR; Start 08/08/18 at 12:00; Stop 08/08/18 at 13:59 Potassium Chloride 100 ml @ 50 mls/hr Q2H IVPB ; Start 08/08/18 at 12:00; Stop 08/08/18 at 19:59 Sodium Chloride 1,000 ml @ 75 mls/hr [id number] IV ; Start 08/08/18 at 12:30; Stop 08/09/18 at 08:29 EARL PERALES Aug 08, 2018 13:02
[2018-08-08] MEDS: SOD CHLORIDE 0.9% 1,000 ML IV SCH (13:29)
--- NOTE | 2018-08-08 14:09 | NUR ---
NUTRITION NOTE: S: CACHECTIC, UNABLE TO SEE, FAIR DENTITION O: NPO 3RD DAY. PHOSPHORUS 1.7, POTASSIUM 3.0, SODIUM 148. IV NS @ 75 ML/H PRESSURE ULCER SACROCOCCYX STAGE IV BMI 17.8 SEVERE PROTEIN CALORIE MALNUTRITION A: INCREASED NUTRITION NEED. HIGH RISK FOR REFEEDING SYNDROME. DECREASED APPETITE W/ WEIGHT LOSS @ SNF PER CAREGIVER. D/W LANJay LEIGHA REGARDING NEED FOR NUTRITION ACCESS, STATED HE WILL CONSENT FOR NGT OR G-TUBE FOR FEEDING. P: IF NOT CONTRAINDICATED AND OK W/ MD. MAY CONSIDER NGT PLACEMENT AND START TROPHIC TUBE FEEDING OF ISOSOURCE HN @ 20 ML/HR INCREASE BY 10 ML Q 8 HOURS TO GOAL OF 60 ML/HR TO PROVIDE 1728 STEPH/ 78 GM PROT/1176 ML FREE WATER. WATER WATER FLUSHES 30 ML Q 6 HOURS OR PER MD. ADJUST IVF NEEDED. MONITOR PHOSPHORUS, POTASSIUM, MAGNESIUM. CONTINUE MULTIVITAMIN, ADD ZNS04 220 MG TAB, VIT. C 500 MG/D FOR 7 - 14 DAYS.
[2018-08-08] MEDS ORDERED: POTASSIUM PHOSPHATE 20 MEQ in SOD CHLORIDE 0.9% 250 ML IVPB ONE (14:30)
--- NOTE | 2018-08-08 14:34 | CONS ---
Date/Time of Note Date/Time of Note DATE: 08/08/18 TIME: 14:33 Assessment/Plan Assessment/Plan Hospital Course Patient was started on amiodarone drip for rapid atrial fibrillation. He is in no distress. Lethargic. With copious secretions requiring frequent deep suctioning. WBC 5.1 H&H 8.2 and 28.2 platelets 77 BUN 20 creatinine 0.93 Microbiology: Cultures are negative Indwelling: PICC line and Craft catheter Chest x-ray 08/07/18 revealed patchy opacities in the right upper lobe in the left mid to lower lung with interval improved aeration of the left lower lung likely representing multifocal pneumonia Antimicrobials: Cefepime vancomycin Physical examination: This is a chronically ill wasted middle-aged man who is lethargic in no distress. Head atraumatic normocephalic sclera nonicteric. Neck is supple. Chest rise symmetrical breath sounds diminished bases. Heart: S1-S2. Tachycardic, regular. Abdomen soft bowel sounds present extremities without cyanosis Assessment: 1. Severe sepsis status post shock 2. Healthcare associated pneumonia 3. Recently treated C. difficile colitis 4. Non-Hodgkin's lymphoma 5. Parkinson's disease 6. History of DVT and pulmonary emboli status post IVC filter placement 7. Blindness Plan: Remains unchanged, will change cefepime to Merrem given progressive thrombocytopenia Result Diagram: 08/08/18 0400 08/08/18 0400 Results 24hrs Laboratory Tests Test 08/07/18 17:16 08/08/18 04:00 Vancomycin Level Trough 20.8 *H White Blood Count 5.1 # Red Blood Count 2.68 L Hemoglobin 8.2 L Hematocrit 28.2 L Mean Corpuscular Volume 105.2 H Mean Corpuscular Hemoglobin 30.6 Mean Corpuscular Hemoglobin Concent 29.1 L Red Cell Distribution Width 22.4 H Platelet Count 77 L Mean Platelet Volume 13.1 H Immature Granulocytes % 0.800 H Neutrophils % Segmented Neutrophils % (Manual) 71 Band Neutrophils % (Manual) 8 H Lymphocytes % Lymphocytes % (Manual) 16 Monocytes % Monocytes % (Manual) 4 Eosinophils % Basophils % Basophils % (Manual) 1 Nucleated Red Blood Cells % 0.8 H Immature Granulocytes # 0.040 H Neutrophils # Neutrophils # (Manual) 3.6 Band Neutrophils # 0.4 Lymphocytes (Manual) 0.8 Lymphocytes # Monocytes # Monocytes # (Manual) 0.2 L Eosinophils # Basophils # Basophils # (Manual) 0.0 Nucleated Red Blood Cells # Platelet Estimate DECREASED Polychromasia 2+ Poikilocytosis 1+ Anisocytosis 1+ Microcytosis 1+ Sodium Level 148 H Potassium Level 3.0 L Chloride Level 117 H Carbon Dioxide Level 20 L Anion Gap 11 Blood Urea Nitrogen 20 Creatinine 0.93 Est Glomerular Filtrat Rate mL/min > 60 Glucose Level 138 # Calcium Level 9.3 Phosphorus Level 1.7 L Magnesium Level 2.0 Consultation Date/Type/Reason Admit Date/Time Aug 06, 2018 at 00:34 Initial Consult Date Type of Consult id Exam/Review of Systems Vital Signs Vitals Vital Signs Date Temp Pulse Resp B/P (MAP) Pulse Ox O2 O2 Flow FiO2 Time Delivery Rate 08/08/18 93 27 94 Nasal 3.0 14:22 Cannula 08/08/18 112/84 13:00 (93) 08/08/18 98.5 12:00 08/07/18 40 03:10 Intake and Output 08/07/18 08/07/18 08/08/18 1414:59 22:59 06:59 IntakeIntake Total 800 ml 916.8 ml 783.7 ml OutputOutput Total 200 ml 312 ml 261 ml BalanceBalance 600 ml 604.8 ml 522.7 ml Medications Medications Current Medications Vancomycin HCl (Vanco Iv Per Pharmacy) VANCOMYCIN PER PHARMACY PER PROTOCOL XX ; Start 08/06/18 at 08:30 Cefepime HCl 50 ml @ 100 mls/hr Q12 IVPB Last administered on 08/08/18at 08:48; Admin Dose 100 MLS/HR; Start 08/06/18 at 21:00 Albuterol/ Ipratropium (Duoneb) 3 ml Q6H RESP THERAPY HHN Last administered on 08/08/18at 14:15; Admin Dose 3 ML; Start 08/06/18 at 08:30; Stop 09/05/18 at 12:00 Acetaminophen (Tylenol Supp) 650 mg Q4H PRN [place] MILD PAIN(1-3) OR TEMP>38C Last administered on 08/07/18at 19:40; Admin Dose 650 MG; Start 08/06/18 at 08:30 Norepinephrine 250 ml @ 1.875 mls/ hr TITRATE IV ; Start 08/06/18 at 09:00 IV Flush (NS 3 ml) 3 ml PER PROTOCOL IV ; Start 08/06/18 at 12:00 Ondansetron HCl (Zofran Inj) 4 mg Q6H PRN IV NAUSEA AND/OR VOMITING; Start 08/06/18 at 12:00 Albuterol (Proventil 0.083% (Neb)) 2.5 mg Q2H RESP THERAPY PRN NEB SHORTNESS OF BREATH; Start 08/06/18 at 12:00 Ipratropium [place] (Atrovent 0.02% (Neb)) 0.5 mg Q2H RESP THERAPY PRN NEB SHORTNESS OF BREATH; Start 08/06/18 at 12:00 Acetaminophen (Tylenol Liquid) 650 mg Q6H PRN PO PAIN LEVEL 1-3 OR FEVER; Start 08/06/18 at 12:00 Docusate Sodium (Colace) 100 mg Q12H PRN PO CONSTIPATION; Start 08/06/18 at 12:00 Pantoprazole (Protonix Iv) 40 mg DAILY@06 IV Last administered on 08/08/18at 05:14; Admin Dose 40 MG; Start 08/07/18 at 06:00 Aspirin (Aspirin) 81 mg DAILY PO ; Start 08/07/18 at 09:00 Carbidopa/Levodopa (Sinemet Cr (25/ 100)) 1 tab TID PO ; Start 08/06/18 at 15:00 Gabapentin (Neurontin) 900 mg TID PO ; Start 08/06/18 at 14:00 Lactobacillus Acidophilus/ Rhamnosus (Culturelle) 1 cap BID PO ; Start 08/06/18 at 21:00 Memantine (Namenda) 10 mg DAILY PO ; Start 08/07/18 at 09:00 Miscellaneous Information 5 mg Q48H PO ; Start 08/06/18 at 12:30; Status UNV Multivitamins Therapeutic (Theragran) 1 tab DAILY PO ; Start 08/07/18 at 09:00 IV Flush (NS 10 ml) 10 ml PRN PRN IV FLUSH LINE; Start 08/06/18 at 15:00 Morphine Sulfate (morphine SULFATE (PF)) 2 mg Q4H PRN IV PAIN LEVEL 7-10 Last administered on 08/06/18at 20:14; Admin Dose 2 MG; Start 08/06/18 at 20:30 Diltiazem HCl (Cardizem Iv) 10 mg Q1H PRN IV IV PROTOCOL Last administered on 08/07/18at 16:14; Admin Dose 10 MG; Start 08/07/18 at 16:00 Amiodarone HCl 900 mg/Dextrose 500 ml @ 0 mls/hr Q0M IV Last administered on 08/07/18at 20:00; Admin Dose 33.4 MLS/HR; Start 08/07/18 at 17:30; Stop 08/08/18 at 17:29 Vancomycin/Sodium Chloride 250 ml @ 125 mls/hr Q24H IVPB Last administered on 08/08/18at 05:16; Admin Dose 125 MLS/HR; Start 08/08/18 at 06:00 Sodium Chloride 1,000 ml @ 75 mls/hr [id number] IV Last administered on 08/08/18at 13:29; Admin Dose 75 MLS/HR; Start 08/08/18 at 12:30; Stop 08/09/18 at 08:29 Potassium Phosphate 20 meq/ Sodium Chloride 254.5455 ml @ 63.636 m... ONCE ONCE IVPB ; Start 08/08/18 at 14:30; Stop 08/08/18 at 18:29 DIPTI CEDILLO NP Aug 08, 2018 14:34
[2018-08-08] MEDS: morphine SULFATE/PF (2 MG/2 ML) SYG IV PRN (17:28)
[2018-08-08] MEDS: MEROPENEM 1 GM/50ML(PMX) 50 ML IVPB SCH ×2 (17:28→21:20)
--- NOTE | 2018-08-08 18:29 | NUR ---
End of Shift Report: Patient had periods of SVT and PAF all morning. Dr. Ramirez aware. Improved this afternoon. Currently SR in the high 90s. Amiodarone drip almost done. Otherwise vital signs stable including BP. Afebrile. Seen by form layer and Speech therapist today. Failed swallow eval. Cont NPO for now. Per wound care nurse he will order treatment. No written order as of yet for the stg 4 decub in coccyx. Family at bedside updated with current plan of care and is agreeable. No new issues.
[2018-08-08] MEDS: COLLAGENASE 5 GM (UD JAR) TOP SCH (21:20)
[2018-08-09] VITALS (20 sets, daily range): BP systolic 101–113; BP diastolic 73–87; PULSE 102–120; RESP 20–43
[2018-08-09] MEDS: ACETAMINOPHEN 650 MG SUPP PR PRN ×2 (01:09→17:26)
[2018-08-09] MEDS: SOD CHLORIDE 0.9% 1,000 ML IV SCH (01:50)
[2018-08-09] MEDS: ALBUTEROL/IPRATROPIUM (NEB) 3 ML AMP HHN SCH ×4 (01:55→19:30)
[2018-08-09] MEDS: PANTOPRAZOLE 40 MG INJ IV SCH (05:55)
[2018-08-09] MEDS: VANCOMYCIN 750 MG (PMX) 250 ML IVPB SCH (05:57)
[2018-08-09] MEDS: POTASSIUM CHLORIDE 50 ML IVPB SCH ×3 (08:03→10:07)
[2018-08-09] MEDS: CARBIDOPA/LEVODOPA 25-100 (CR) TAB PO SCH ×3 (09:00→21:00)
[2018-08-09] MEDS: MULTIVITAMINS THERAPEUTIC TAB PO SCH (09:00)
[2018-08-09] MEDS: GABAPENTIN 300 MG CAP PO SCH ×3 (09:00→21:00)
[2018-08-09] MEDS: LACTOBACILLUS RHAMNOSUS CAP PO SCH ×2 (09:00→21:00)
[2018-08-09] MEDS: MEMANTINE 10 MG TAB PO SCH (09:00)
[2018-08-09] MEDS: ASPIRIN 81 MG TAB PO SCH (09:00)
[2018-08-09] MEDS: MEROPENEM 1 GM/50ML(PMX) 50 ML IVPB SCH ×2 (09:58→20:52)
[2018-08-09] MEDS: D5-NS + KCL 20 MEQ 1,000 ML IV SCH ×2 (09:58→22:18)
[2018-08-09] MEDS: COLLAGENASE 5 GM (UD JAR) TOP SCH (10:00)
--- NOTE | 2018-08-09 10:15 | CONS ---
Date/Time of Note Date/Time of Note DATE: 08/09/18 TIME: 10:14 Assessment/Plan Assessment/Plan Hospital Course ID PROGRESS NOTE CURRENT ABX: DAY #4 => Vanco IV #4 + Merrem #2 s/p Cefepime 08/09/18 0511 08/09/18 0511 24H INTERVAL SUMMARY * Tc 97.1 - TMAX 100.5 Axillary over 24H * Frail/cachectic M laying supine in bed -- lethargic, spouse present reports he opens his eyes to command, patient is DNR for advanced NHL * CXR 08/07/18: IMPRESSION:Patchy opacities in the right upper lobe in the left mid to lower lung, with interval improved aeration of the left lower lung, likely representing multifocal pneumonia. Stable small left pleural effusion.Stable left-sided PICC. Mottled appearance of the left humerus. Recommend correlation for underlying infiltrative/neoplastic process including multiple myeloma. MICRO * 08/06/18 (-) MRSA Nares * 08/05/18 BCx (-) * 05/05/18 Urine (-) PHYSICAL EXAMINATION: GENERAL: Afebrile, VSS, HEENT: AT, NC, anicteric NECK: Supple, trach-> secure CHEST: Equal chest rise bilaterally, without dyspnea on observation HEART: Pulse RRR ABDOMEN: Soft / NT EXTREMITIES: Warm, dry SKIN: No rash, no diaphoresis ID ASSESSMENT 53 yo M w/PMHx BLINDNESS, admit with: 1. Severe sepsis status post shock 2. Healthcare associated pneumonia = Multifocal PNA 3. Recently treated C. difficile colitis 4. Non-Hodgkin's lymphoma 5. Parkinson's disease 6. History of DVT and pulmonary emboli status post IVC filter placement 7. Paroxysmal atrial fibrillation * Preserved ejection fraction on 2D ECHO 8. s/p SVT 9. Mild elevated troponin in setting sepsis + SVT 10. Dysphagia -- failed swallow eval -- not taking PO Meds at this time (-)MRSA Nares ABX ALLERGIES: LEVAQUIN INVASIVES: PICC, FC CURRENT ABX: Day #4 => Vanco IV #4 + Merrem #2 s/p Cefepime ID RECOMMENDATIONS/PLAN: Continue current ABX + telephone order from Dr. Ramos add Flagyl 500mg IVPB Q8 H for hx of C.Diff At risk recurrent C.Diff Failed swallow eval -- not taking PO Meds at this time . Result Diagram: 08/09/18 0511 08/09/18 0511 Results 24hrs Laboratory Tests Test 08/09/18 05:11 White Blood Count 5.1 Red Blood Count 2.66 L Hemoglobin 8.0 L Hematocrit 28.2 L Mean Corpuscular Volume 106.0 H Mean Corpuscular Hemoglobin 30.1 Mean Corpuscular Hemoglobin Concent 28.4 L Red Cell Distribution Width 22.1 H Platelet Count 73 L Mean Platelet Volume 13.3 H Immature Granulocytes % 1.000 H Neutrophils % 74.1 Lymphocytes % 16.4 Monocytes % 7.9 Eosinophils % 0.2 Basophils % 0.4 Nucleated Red Blood Cells % 0.8 H Immature Granulocytes # 0.050 H Neutrophils # 3.8 Lymphocytes # 0.8 Monocytes # 0.4 Eosinophils # 0.0 Basophils # 0.0 Nucleated Red Blood Cells # 0.0 Sodium Level 150 H Potassium Level 3.1 L Chloride Level 120 H Carbon Dioxide Level 20 L Anion Gap 10 Blood Urea Nitrogen 18 Creatinine 0.84 Est Glomerular Filtrat Rate mL/min > 60 Glucose Level 69 #L Calcium Level 8.7 Total Bilirubin 0.4 Direct Bilirubin 0.00 Indirect Bilirubin 0.4 Aspartate Amino Transf (AST/SGOT) 19 Alanine Aminotransferase (ALT/SGPT) 23 Alkaline Phosphatase 138 H Total Protein 4.1 L Albumin 2.4 L Globulin 1.70 Albumin/Globulin Ratio 1.41 Consultation Date/Type/Reason Admit Date/Time Aug 06, 2018 at 00:34 Initial Consult Date Exam/Review of Systems Vital Signs Vitals Vital Signs Date Temp Pulse Resp B/P (MAP) Pulse Ox O2 O2 Flow FiO2 Time Delivery Rate 08/09/18 94 4.0 08:43 08/09/18 108 32 Nasal 08:24 Cannula 08/09/18 97.1 06:00 08/09/18 106/73 05:00 (84) 08/09/18 31 02:07 Intake and Output 08/08/18 08/08/18 08/09/18 1515:00 23:00 07:00 IntakeIntake Total 0 ml 402.272 ml 650 ml OutputOutput Total 480 ml 425 ml 320 ml BalanceBalance -480 ml -22.728 ml 330 ml Medications Medications Current Medications Vancomycin HCl (Vanco Iv Per Pharmacy) VANCOMYCIN PER PHARMACY PER PROTOCOL XX ; Start 08/06/18 at 08:30 Albuterol/ Ipratropium (Duoneb) 3 ml Q6H RESP THERAPY HHN Last administered on 08/09/18at 08:24; Admin Dose 3 ML; Start 08/06/18 at 08:30; Stop 09/05/18 at 12:00 Acetaminophen (Tylenol Supp) 650 mg Q4H PRN [place] MILD PAIN(1-3) OR TEMP>38C Last administered on 08/09/18at 01:09; Admin Dose 650 MG; Start 08/06/18 at 08:30 Norepinephrine 250 ml @ 1.875 mls/ hr TITRATE IV ; Start 08/06/18 at 09:00 IV Flush (NS 3 ml) 3 ml PER PROTOCOL IV ; Start 08/06/18 at 12:00 Ondansetron HCl (Zofran Inj) 4 mg Q6H PRN IV NAUSEA AND/OR VOMITING; Start 08/06/18 at 12:00 Albuterol (Proventil 0.083% (Neb)) 2.5 mg Q2H RESP THERAPY PRN NEB SHORTNESS OF BREATH; Start 08/06/18 at 12:00 Ipratropium [place] (Atrovent 0.02% (Neb)) 0.5 mg Q2H RESP THERAPY PRN NEB SHORTNESS OF BREATH; Start 08/06/18 at 12:00 Acetaminophen (Tylenol Liquid) 650 mg Q6H PRN PO PAIN LEVEL 1-3 OR FEVER; Start 08/06/18 at 12:00 Docusate Sodium (Colace) 100 mg Q12H PRN PO CONSTIPATION; Start 08/06/18 at 12:00 Pantoprazole (Protonix Iv) 40 mg DAILY@06 IV Last administered on 08/09/18at 05:55; Admin Dose 40 MG; Start 08/07/18 at 06:00 Aspirin (Aspirin) 81 mg DAILY PO ; Start 08/07/18 at 09:00 Carbidopa/Levodopa (Sinemet Cr (25/ 100)) 1 tab TID PO ; Start 08/06/18 at 15:00 Gabapentin (Neurontin) 900 mg TID PO ; Start 08/06/18 at 14:00 Lactobacillus Acidophilus/ Rhamnosus (Culturelle) 1 cap BID PO ; Start 08/06/18 at 21:00 Memantine (Namenda) 10 mg DAILY PO ; Start 08/07/18 at 09:00 Miscellaneous Information 5 mg Q48H XX ; Start 08/06/18 at 12:30; Status UNV Multivitamins Therapeutic (Theragran) 1 tab DAILY PO ; Start 08/07/18 at 09:00 IV Flush (NS 10 ml) 10 ml PRN PRN IV FLUSH LINE; Start 08/06/18 at 15:00 Morphine Sulfate (morphine SULFATE (PF)) 2 mg Q4H PRN IV PAIN LEVEL 7-10 Last administered on 08/08/18at 17:28; Admin Dose 2 MG; Start 08/06/18 at 20:30 Diltiazem HCl (Cardizem Iv) 10 mg Q1H PRN IV IV PROTOCOL Last administered on 08/07/18at 16:14; Admin Dose 10 MG; Start 08/07/18 at 16:00 Vancomycin/Sodium Chloride 250 ml @ 125 mls/hr Q24H IVPB Last administered on 08/09/18 05:57; Admin Dose 125 MLS/HR; Start 08/08/18 at 06:00 Meropenem/Sodium Chloride 50 ml @ 100 mls/hr Q12 IVPB Last administered on 08/09/18 09:58; Admin Dose 100 MLS/HR; Start 08/08/18 at 15:07 Collagenase (Santyl) 1 applic DAILY TOP Last administered on 08/09/18at 10:00; Admin Dose 1 APPLIC; Start 08/08/18 at 20:30 Potassium Chloride 50 ml @ 50 mls/hr Q1H IVPB Last administered on 08/09/18at 10:07; Admin Dose 50 MLS/HR; Start 08/09/18 at 07:30; Stop 08/09/18 at 10:29 Potassium Chloride/Dextrose/ Sod Cl 1,000 ml @ 70 mls/hr [id number] IV Last administered on 08/09/18 09:58; Admin Dose 70 MLS/HR; Start 08/09/18 at 08:00 GÓMEZ MONROE NP Aug 09, 2018 10:14
--- NOTE | 2018-08-09 12:48 | NUR ---
Patient seen for swallow therapy. Pt awake lying in bed with eyes open but noncommunicative. Sister at bedside and reported he has made no attempt to communicate with her during her visit. Positioned HOB up at 90 degrees and given trial of ice chips. Minimal mouth opening making acceptance of the ice chip difficult. Markedly decreased tongue strength with inability to transfer ice chip posteriorly. Pt attempts to swallow with incomplete laryngeal elevation noted visually and by palpation. Assume the ice chips passive fall into the hypopharynx. Pt with delayed congested cough post swallows. Pureed texture not given as patient not felt safe for this texture at this time. Discussed above with sister and RN. Recommend NGT for nonoral nutrition/hydration and med administration. ST will continue to follow and give po trials as appropriate with the goal to advance to a po diet. If unable to tolerate po in a few days, may be a candidate for PEG placement.
--- NOTE | 2018-08-09 13:04 | CONS ---
Date/Time of Note Date/Time of Note DATE: 08/09/18 TIME: 12:59 Consult Date/Type/Reason Admit Date/Time Aug 06, 2018 at 00:34 Initial Consult Date Type of Consultation: Pulm/CCM Subjective Remains obtunded. No events. Objective Vital Signs Date Temp Pulse Resp B/P (MAP) Pulse Ox O2 O2 Flow FiO2 Time Delivery Rate 08/09/18 113 31 108/84 96 11:00 (92) 08/09/18 4.0 08:43 08/09/18 Nasal 08:24 Cannula 08/09/18 98.8 08:00 08/09/18 31 02:07 Intake and Output 08/08/18 08/08/18 08/09/18 1515:00 23:00 07:00 IntakeIntake Total 0 ml 402.272 ml 650 ml OutputOutput Total 480 ml 425 ml 320 ml BalanceBalance -480 ml -22.728 ml 330 ml Exam HEENT: Neck supple; no JVD; no LAD CVS: Tachy, S1 and S2 CHEST: Coarse rhonchi R>L ABD: Soft, NT, + BS EXT: No c/c/e Results/Medications Result Diagram: 08/09/18 0511 08/09/18 0511 Results 24 hrs Laboratory Tests Test 08/09/18 05:11 White Blood Count 5.1 Red Blood Count 2.66 L Hemoglobin 8.0 L Hematocrit 28.2 L Mean Corpuscular Volume 106.0 H Mean Corpuscular Hemoglobin 30.1 Mean Corpuscular Hemoglobin Concent 28.4 L Red Cell Distribution Width 22.1 H Platelet Count 73 L Mean Platelet Volume 13.3 H Immature Granulocytes % 1.000 H Neutrophils % 74.1 Lymphocytes % 16.4 Monocytes % 7.9 Eosinophils % 0.2 Basophils % 0.4 Nucleated Red Blood Cells % 0.8 H Immature Granulocytes # 0.050 H Neutrophils # 3.8 Lymphocytes # 0.8 Monocytes # 0.4 Eosinophils # 0.0 Basophils # 0.0 Nucleated Red Blood Cells # 0.0 Sodium Level 150 H Potassium Level 3.1 L Chloride Level 120 H Carbon Dioxide Level 20 L Anion Gap 10 Blood Urea Nitrogen 18 Creatinine 0.84 Est Glomerular Filtrat Rate mL/min > 60 Glucose Level 69 #L Calcium Level 8.7 Total Bilirubin 0.4 Direct Bilirubin 0.00 Indirect Bilirubin 0.4 Aspartate Amino Transf (AST/SGOT) 19 Alanine Aminotransferase (ALT/SGPT) 23 Alkaline Phosphatase 138 H Total Protein 4.1 L Albumin 2.4 L Globulin 1.70 Albumin/Globulin Ratio 1.41 Medications Current Medications Vancomycin HCl (Vanco Iv Per Pharmacy) VANCOMYCIN PER PHARMACY PER PROTOCOL XX ; Start 08/06/18 at 08:30 Albuterol/ Ipratropium (Duoneb) 3 ml Q6H RESP THERAPY HHN Last administered on 08/09/18at 08:24; Admin Dose 3 ML; Start 08/06/18 at 08:30; Stop 09/05/18 at 12:00 Acetaminophen (Tylenol Supp) 650 mg Q4H PRN [place] MILD PAIN(1-3) OR TEMP>38C Last administered on 08/09/18at 01:09; Admin Dose 650 MG; Start 08/06/18 at 08:30 Norepinephrine 250 ml @ 1.875 mls/ hr TITRATE IV ; Start 08/06/18 at 09:00 IV Flush (NS 3 ml) 3 ml PER PROTOCOL IV ; Start 08/06/18 at 12:00 Ondansetron HCl (Zofran Inj) 4 mg Q6H PRN IV NAUSEA AND/OR VOMITING; Start 08/06/18 at 12:00 Albuterol (Proventil 0.083% (Neb)) 2.5 mg Q2H RESP THERAPY PRN NEB SHORTNESS OF BREATH; Start 08/06/18 at 12:00 Ipratropium [place] (Atrovent 0.02% (Neb)) 0.5 mg Q2H RESP THERAPY PRN NEB SHORTNESS OF BREATH; Start 08/06/18 at 12:00 Acetaminophen (Tylenol Liquid) 650 mg Q6H PRN PO PAIN LEVEL 1-3 OR FEVER; Start 08/06/18 at 12:00 Docusate Sodium (Colace) 100 mg Q12H PRN PO CONSTIPATION; Start 08/06/18 at 12:00 Pantoprazole (Protonix Iv) 40 mg DAILY@06 IV Last administered on 08/09/18at 05:55; Admin Dose 40 MG; Start 08/07/18 at 06:00 Aspirin (Aspirin) 81 mg DAILY PO ; Start 08/07/18 at 09:00 Carbidopa/Levodopa (Sinemet Cr (25/ 100)) 1 tab TID PO ; Start 08/06/18 at 15:00 Gabapentin (Neurontin) 900 mg TID PO ; Start 08/06/18 at 14:00 Lactobacillus Acidophilus/ Rhamnosus (Culturelle) 1 cap BID PO ; Start 08/06/18 at 21:00 Memantine (Namenda) 10 mg DAILY PO ; Start 08/07/18 at 09:00 Miscellaneous Information 5 mg Q48H XX ; Start 08/06/18 at 12:30; Status UNV Multivitamins Therapeutic (Theragran) 1 tab DAILY PO ; Start 08/07/18 at 09:00 IV Flush (NS 10 ml) 10 ml PRN PRN IV FLUSH LINE; Start 08/06/18 at 15:00 Morphine Sulfate (morphine SULFATE (PF)) 2 mg Q4H PRN IV PAIN LEVEL 7-10 Last administered on 08/08/18at 17:28; Admin Dose 2 MG; Start 08/06/18 at 20:30 Diltiazem HCl (Cardizem Iv) 10 mg Q1H PRN IV IV PROTOCOL Last administered on 08/07/18at 16:14; Admin Dose 10 MG; Start 08/07/18 at 16:00 Vancomycin/Sodium Chloride 250 ml @ 125 mls/hr Q24H IVPB Last administered on 08/09/18at 05:57; Admin Dose 125 MLS/HR; Start 08/08/18 at 06:00 Meropenem/Sodium Chloride 50 ml @ 100 mls/hr Q12 IVPB Last administered on 08/09/18at 09:58; Admin Dose 100 MLS/HR; Start 08/08/18 at 15:07 Collagenase (Santyl) 1 applic DAILY TOP Last administered on 08/09/18at 10:00; Admin Dose 1 APPLIC; Start 08/08/18 at 20:30 Potassium Chloride/Dextrose/ Sod Cl 1,000 ml @ 70 mls/hr [id number] IV Last administered on 08/09/18at 09:58; Admin Dose 70 MLS/HR; Start 08/09/18 at 08:00 Metronidazole 100 ml @ 100 mls/hr Q8 IVPB ; Start 08/09/18 at 14:00 Assessment/Plan Additional Assessment/Plan IMP: 1. Encephalopathy--etiology unclear though concerning for lymphoma 2. Acute on chronic hypoxemic respiratory failure 3. Aspiration pneumonia 4. Sepsis 5. Lymphoma 6. History of pulmonary embolus status post IVC filter placement. RECS: 1. I spoke extensively with family who expressed desire to transition to comfort care. I expressed to them that given his overall prognosis that would be reasonable 2. Palliative Care Consult 3. Hospice eval 35 min cc time NIKKO ESTEVES MD Aug 09, 2018 13:04
--- NOTE | 2018-08-09 14:52 | NUR ---
SS Note: Hospice Care Consult SWer met w/ pt's sister/POA, Mariluz Duncan and Secondary Decision Maker Nhan [phone], to clarify their disposition re palliative/hospice care. Mariluz and Nhan reported that they met w/ the attending physician and concluded hospice care is appropriate at this time as pt is suffering and he does not wish to continue suffering. Pt's Code status is DNR/DNI, SWer asked DPOA does she have a preferred hospice care agency in mind. DPOA replied 'no' with this information SWer offered [facility] as a viable option for hospice care, DPOA agreed. SWer thanked, DPOA for her time and faxed a copy of pt's face sheet and clinicals to [employer] for review, [employer] agreed to f/u w/ pt's DPOA w/in the hour. CM aware, SWer to remain available for f/u and assistance as needed.
[2018-08-09] MEDS: metroNIDAZOLE 500 MG/NS (PMX) 100 ML IVPB SCH ×2 (15:28→21:54)
--- NOTE | 2018-08-09 16:30 | PN ---
Date/Time of Note Date/Time of Note DATE: 08/09/18 TIME: 16:27 Assessment/Plan VTE Prophylaxis Risk score (from Ns)>0 risk: 8 SCD applied (from [facility]): Yes Pharmacological prophylaxis: other (per hospital MD) Lines/Catheters IV Catheter Type (from Nrs): Central Line Central line still needed: Yes Urinary Cath still in place: Yes Reason Cath still needed: urinary retention Assessment/Plan Hospital Course 53 year old with non-hodgkins lymphoma, with sepsis and PAF, now in sinus tachycardia Assessment/Plan Impression: Sepsis, with stable blood pressure Sinus tachycardia at present Paroxysmal afib Recommendations: Patient comfortable, and while slightly tachycardic, he is hemodynamically stable Will keep medications as is Will follow as needed Result Diagram: 08/09/18 0511 08/09/18 0511 Results 24hrs Laboratory Tests Test 08/09/18 05:11 08/09/18 15:25 White Blood Count 5.1 Red Blood Count 2.66 L Hemoglobin 8.0 L Hematocrit 28.2 L Mean Corpuscular Volume 106.0 H Mean Corpuscular Hemoglobin 30.1 Mean Corpuscular Hemoglobin Concent 28.4 L Red Cell Distribution Width 22.1 H Platelet Count 73 L Mean Platelet Volume 13.3 H Immature Granulocytes % 1.000 H Neutrophils % 74.1 Lymphocytes % 16.4 Monocytes % 7.9 Eosinophils % 0.2 Basophils % 0.4 Nucleated Red Blood Cells % 0.8 H Immature Granulocytes # 0.050 H Neutrophils # 3.8 Lymphocytes # 0.8 Monocytes # 0.4 Eosinophils # 0.0 Basophils # 0.0 Nucleated Red Blood Cells # 0.0 Sodium Level 150 H Potassium Level 3.1 L Chloride Level 120 H Carbon Dioxide Level 20 L Anion Gap 10 Blood Urea Nitrogen 18 Creatinine 0.84 Est Glomerular Filtrat Rate mL/min > 60 Glucose Level 69 #L Calcium Level 8.7 Total Bilirubin 0.4 Direct Bilirubin 0.00 Indirect Bilirubin 0.4 Aspartate Amino Transf (AST/SGOT) 19 Alanine Aminotransferase (ALT/SGPT) 23 Alkaline Phosphatase 138 H Total Protein 4.1 L Albumin 2.4 L Globulin 1.70 Albumin/Globulin Ratio 1.41 Bedside Glucose 80 Subjective 24 Hr Interval Summary Free Text/Dictation Patient obtunded, family at bedside, I did not examine him Exam/Review of Systems Vital Signs Vitals Vital Signs Date Temp Pulse Resp B/P (MAP) Pulse Ox O2 O2 Flow FiO2 Time Delivery Rate 08/09/18 119 28 105/87 96 15:00 (93) 08/09/18 40 13:42 08/09/18 4.0 13:25 08/09/18 Nasal 13:25 Cannula 08/09/18 99.5 12:00 Intake and Output 08/08/18 08/08/18 08/09/18 1515:00 23:00 07:00 IntakeIntake Total 0 ml 402.272 ml 650 ml OutputOutput Total 480 ml 425 ml 370 ml BalanceBalance -480 ml -22.728 ml 280 ml Exam Constitutional: other (somnolent) Head: normocephalic, atraumatic Medications Medications Current Medications Vancomycin HCl (Vanco Iv Per Pharmacy) VANCOMYCIN PER PHARMACY PER PROTOCOL XX ; Start 08/06/18 at 08:30 Albuterol/ Ipratropium (Duoneb) 3 ml Q6H RESP THERAPY HHN Last administered on 08/09/18at 13:25; Admin Dose 3 ML; Start 08/06/18 at 08:30; Stop 09/05/18 at 12:00 Acetaminophen (Tylenol Supp) 650 mg Q4H PRN [place] MILD PAIN(1-3) OR TEMP>38C Last administered on 08/09/18at 01:09; Admin Dose 650 MG; Start 08/06/18 at 08:30 IV Flush (NS 3 ml) 3 ml PER PROTOCOL IV ; Start 08/06/18 at 12:00 Ondansetron HCl (Zofran Inj) 4 mg Q6H PRN IV NAUSEA AND/OR VOMITING; Start 08/06/18 at 12:00 Albuterol (Proventil 0.083% (Neb)) 2.5 mg Q2H RESP THERAPY PRN NEB SHORTNESS OF BREATH; Start 08/06/18 at 12:00 Ipratropium [place] (Atrovent 0.02% (Neb)) 0.5 mg Q2H RESP THERAPY PRN NEB SHORTNESS OF BREATH; Start 08/06/18 at 12:00 Acetaminophen (Tylenol Liquid) 650 mg Q6H PRN PO PAIN LEVEL 1-3 OR FEVER; Start 08/06/18 at 12:00 Docusate Sodium (Colace) 100 mg Q12H PRN PO CONSTIPATION; Start 08/06/18 at 12:00 Pantoprazole (Protonix Iv) 40 mg DAILY@06 IV Last administered on 08/09/18at 05:55; Admin Dose 40 MG; Start 08/07/18 at 06:00 Aspirin (Aspirin) 81 mg DAILY PO ; Start 08/07/18 at 09:00 Carbidopa/Levodopa (Sinemet Cr (25/ 100)) 1 tab TID PO ; Start 08/06/18 at 15:00 Gabapentin (Neurontin) 900 mg TID PO ; Start 08/06/18 at 14:00 Lactobacillus Acidophilus/ Rhamnosus (Culturelle) 1 cap BID PO ; Start 08/06/18 at 21:00 Memantine (Namenda) 10 mg DAILY PO ; Start 08/07/18 at 09:00 Miscellaneous Information 5 mg Q48H XX ; Start 08/06/18 at 12:30; Status UNV Multivitamins Therapeutic (Theragran) 1 tab DAILY PO ; Start 08/07/18 at 09:00 IV Flush (NS 10 ml) 10 ml PRN PRN IV FLUSH LINE; Start 08/06/18 at 15:00 Morphine Sulfate (morphine SULFATE (PF)) 2 mg Q4H PRN IV PAIN LEVEL 7-10 Last administered on 08/08/18at 17:28; Admin Dose 2 MG; Start 08/06/18 at 20:30 Vancomycin/Sodium Chloride 250 ml @ 125 mls/hr Q24H IVPB Last administered on 08/09/18at 05:57; Admin Dose 125 MLS/HR; Start 08/08/18 at 06:00 Meropenem/Sodium Chloride 50 ml @ 100 mls/hr Q12 IVPB Last administered on at 09:58; Admin Dose 100 MLS/HR; Start 08/08/18 at 15:07 Collagenase (Santyl) 1 applic DAILY TOP Last administered on 08/09/18at 10:00; Admin Dose 1 APPLIC; Start 08/08/18 at 20:30 Potassium Chloride/Dextrose/ Sod Cl 1,000 ml @ 70 mls/hr [id number] IV Last administered on 08/09/18 09:58; Admin Dose 70 MLS/HR; Start 08/09/18 at 08:00 Metronidazole 100 ml @ 100 mls/hr Q8 IVPB Last administered on 08/09/18at 15:28; Admin Dose 100 MLS/HR; Start 08/09/18 at 14:00 JAYDE GARCÍA Aug 09, 2018 16:30
[2018-08-09] MEDS: morphine 4 MG/ML VIAL IV PRN (16:48)
--- NOTE | 2018-08-09 17:28 | NUR ---
EOSS: PT STABLE IN BED RESTING. PT'S AND FAMILY REFUSES TO HAVE NGT PER FRIEND LEIGHA "PT DOES NOT LIKE AND MAKES HIM UNCOMFORTABLE. DR THOMPSON AWARE AND OTHER GIVEN NOT TO INSERT ONE. PT'S FAMILY MEMBER ALSO DISCUSSED PLAN OF CARE WITH DR NORTON AND DECISION MADE TO GET A CONSULT FOR PALLIATIVE/HOSPICE CARE. STRATEGIC CLIENT EXECUTIVE WAS HERE TO ARRANGE FOR HOSPICE CARE TEAM MEETING WITH FAMILY AT 10 A.M TOMORROW.
--- NOTE | 2018-08-09 17:30 | NUR ---
LESLYE NOTES Patient was admitted as transfer from ICU, 53 year old male with a diagnosis of Non Hodgkin Lymphoma and septic shock. Patient is lethargic at the time being, was given Morphine IV at ICU. No signs of pain noted. Vital signs taken and recorded as follows BP 106/71, pulse 117, respirations 21, temperature 100.4, O2 saturation 92 % on 3L of O2 via nasal cannula. Skin assessment done, wound pictures taken, with multiple scabs noted on left lower extremity, unstable pressure injury noted on Sacrococcyx area. Craft catheter intact and raining clear urine at least 50 ml. Seen by DELBERT Leigh with labs order in am. Patient is for hospice evaluation in am as per endorsement. Will continue to monitor. Addendum: 08/09/18 at 1800 by SHANNAN MCNAMARA RN Tylenol 650 mg suppository given per rectum for fever, DELBERT Leigh aware.
--- NOTE | 2018-08-09 17:49 | PN ---
Date/Time of Note Date/Time of Note DATE: 08/09/18 TIME: 17:48 Assessment/Plan VTE Prophylaxis Risk score (from Ns)>0 risk: 8 SCD applied (from Ns): Yes Lines/Catheters IV C[facility]ter Type (from [facility] Central Line Urinary Cath still in place: Yes Reason Cath still needed: urinary retention Assessment/Plan Assessment/Plan -Sepsis with shock, continue IV fluids, pressors for blood pressure support if needed, continue broad-spectrum antibiotics, follow-up on cultures. Dr. Ramos is following in infection disease consultation. -Acute hypoxic respiratory failure, continue oxygen support diminished supplementation breathing treatment BiPAP as needed. Dr. Bonner is following in pulmonology consultation. -Atrial fibrillation was rapid ventricular response currently in sinus tachycar osiel. Dr. Ramirez is following in cardiology consultation. -Recurrent C. difficile colitis, patient was on vancomycin and rifaximin prior to admission. 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 -Parkinsonism. Continue Sinemet. -Neuropathy. Continue gabapentin. -Depression. Continue Lexapro. -Legal blindness. No acute issue. -History of deep venous thrombosis and pulmonary embolism in 2011, status post inferior vena cava filter placement. -Severe protein calorie malnutrition -DNR/DNI status Further recommendations based on clinical course. Plan of care discussed with Dr. Mackay. Result Diagram: 08/09/18 0511 08/09/18 0511 Results 24hrs Laboratory Tests Test 08/09/18 05:11 08/09/18 15:25 White Blood Count 5.1 Red Blood Count 2.66 L Hemoglobin 8.0 L Hematocrit 28.2 L Mean Corpuscular Volume 106.0 H Mean Corpuscular Hemoglobin 30.1 Mean Corpuscular Hemoglobin Concent 28.4 L Red Cell Distribution Width 22.1 H Platelet Count 73 L Mean Platelet Volume 13.3 H Immature Granulocytes % 1.000 H Neutrophils % 74.1 Lymphocytes % 16.4 Monocytes % 7.9 Eosinophils % 0.2 Basophils % 0.4 Nucleated Red Blood Cells % 0.8 H Immature Granulocytes # 0.050 H Neutrophils # 3.8 Lymphocytes # 0.8 Monocytes # 0.4 Eosinophils # 0.0 Basophils # 0.0 Nucleated Red Blood Cells # 0.0 Sodium Level 150 H Potassium Level 3.1 L Chloride Level 120 H Carbon Dioxide Level 20 L Anion Gap 10 Blood Urea Nitrogen 18 Creatinine 0.84 Est Glomerular Filtrat Rate mL/min > 60 Glucose Level 69 #L Calcium Level 8.7 Total Bilirubin 0.4 Direct Bilirubin 0.00 Indirect Bilirubin 0.4 Aspartate Amino Transf (AST/SGOT) 19 Alanine Aminotransferase (ALT/SGPT) 23 Alkaline Phosphatase 138 H Total Protein 4.1 L Albumin 2.4 L Globulin 1.70 Albumin/Globulin Ratio 1.41 Bedside Glucose 80 Subjective 24 Hr Interval Summary Free Text/Dictation - FOR HOSPICE EVAL Exam/Review of Systems Vital Signs Vitals Vital Signs Date Temp Pulse Resp B/P (MAP) Pulse Ox O2 O2 Flow FiO2 Time Delivery Rate 08/09/18 100.4 17:26 08/09/18 120 32 111/87 93 16:00 (95) 08/09/18 40 13:42 08/09/18 4.0 13:25 08/09/18 Nasal 13:25 Cannula Intake and Output 08/08/18 08/08/18 08/09/18 1515:00 23:00 07:00 IntakeIntake Total 0 ml 402.272 ml 650 ml OutputOutput Total 480 ml 425 ml 370 ml BalanceBalance -480 ml -22.728 ml 280 ml Medications Medications Current Medications Vancomycin HCl (Vanco Iv Per Pharmacy) VANCOMYCIN PER PHARMACY PER PROTOCOL XX ; Start 08/06/18 at 08:30 Albuterol/ Ipratropium (Duoneb) 3 ml Q6H RESP THERAPY HHN Last administered on 08/09/18at 13:25; Admin Dose 3 ML; Start 08/06/18 at 08:30; Stop 09/05/18 at 12:00 Acetaminophen (Tylenol Supp) 650 mg Q4H PRN [place] MILD PAIN(1-3) OR TEMP>38C Last administered on 08/09/18at 17:26; Admin Dose 650 MG; Start 08/06/18 at 08:30 IV Flush (NS 3 ml) 3 ml PER PROTOCOL IV ; Start 08/06/18 at 12:00 Ondansetron HCl (Zofran Inj) 4 mg Q6H PRN IV NAUSEA AND/OR VOMITING; Start 08/06/18 at 12:00 Albuterol (Proventil 0.083% (Neb)) 2.5 mg Q2H RESP THERAPY PRN NEB SHORTNESS OF BREATH; Start 08/06/18 at 12:00 Ipratropium [place] (Atrovent 0.02% (Neb)) 0.5 mg Q2H RESP THERAPY PRN NEB SHORTNESS OF BREATH; Start 08/06/18 at 12:00 Acetaminophen (Tylenol Liquid) 650 mg Q6H PRN PO PAIN LEVEL 1-3 OR FEVER; Start 08/06/18 at 12:00 Docusate Sodium (Colace) 100 mg Q12H PRN PO CONSTIPATION; Start 08/06/18 at 12:00 Pantoprazole (Protonix Iv) 40 mg DAILY@06 IV Last administered on 08/09/18at 05:55; Admin Dose 40 MG; Start 08/07/18 at 06:00 Aspirin (Aspirin) 81 mg DAILY PO ; Start 08/07/18 at 09:00 Carbidopa/Levodopa (Sinemet Cr (25/ 100)) 1 tab TID PO ; Start 08/06/18 at 15:00 Gabapentin (Neurontin) 900 mg TID PO ; Start 08/06/18 at 14:00 Lactobacillus Acidophilus/ Rhamnosus (Culturelle) 1 cap BID PO ; Start 08/06/18 at 21:00 Memantine (Namenda) 10 mg DAILY PO ; Start 08/07/18 at 09:00 Miscellaneous Information 5 mg Q48H XX ; Start 08/06/18 at 12:30; Status UNV Multivitamins Therapeutic (Theragran) 1 tab DAILY PO ; Start 08/07/18 at 09:00 IV Flush (NS 10 ml) 10 ml PRN PRN IV FLUSH LINE; Start 08/06/18 at 15:00 Vancomycin/Sodium Chloride 250 ml @ 125 mls/hr Q24H IVPB Last administered on 08/09/18at 05:57; Admin Dose 125 MLS/HR; Start 08/08/18 at 06:00 Meropenem/Sodium Chloride 50 ml @ 100 mls/hr Q12 IVPB Last administered on 08/09/18at 09:58; Admin Dose 100 MLS/HR; Start 08/08/18 at 15:07 Collagenase (Santyl) 1 applic DAILY TOP Last administered on 08/09/18at 10:00; Admin Dose 1 APPLIC; Start 08/08/18 at 20:30 Potassium Chloride/Dextrose/ Sod Cl 1,000 ml @ 70 mls/hr [id number] IV Last administered on 08/09/18at 09:58; Admin Dose 70 MLS/HR; Start 08/09/18 at 08:00 Metronidazole 100 ml @ 100 mls/hr Q8 IVPB Last administered on 08/09/18at 15:28; Admin Dose 100 MLS/HR; Start 08/09/18 at 14:00 Morphine Sulfate (morphine) 2 mg Q4H PRN IV PAIN LEVEL 7-10 Last administered on 08/09/18at 16:48; Admin Dose 2 MG; Start 08/09/18 at 17:00 EARL PERALES Aug 09, 2018 17:49
[2018-08-10] MEDS: ALBUTEROL/IPRATROPIUM (NEB) 3 ML AMP HHN SCH ×4 (01:52→19:29)
[2018-08-10 02:07] VITALS: BP 91/64; PULSE 105; RESP 18
[2018-08-10] MEDS: D5-NS + KCL 20 MEQ 1,000 ML IV SCH (03:32)
--- NOTE | 2018-08-10 05:39 | NUR ---
No acute changes noted in this pt during my shift. Pt was experiencing elevated temperatures which were resolved using cooling measures. Pt remains on a nasal canula and oxygen saturation remains stable. Pt was non verbal during my shift. cpas is at bedside. No signs of acute distress noted in the pt. Addendum: 08/10/18 at 0542 by DAKSHA HOLMAN RN Pt turned and repositioned every two hours, incontinent care provided, fall precautions implemented and continued, hourly rounding provided.
[2018-08-10] MEDS: metroNIDAZOLE 500 MG/NS (PMX) 100 ML IVPB SCH ×3 (06:04→22:08)
[2018-08-10] MEDS: PANTOPRAZOLE 40 MG INJ IV SCH (06:04)
[2018-08-10] MEDS: VANCOMYCIN 750 MG (PMX) 250 ML IVPB SCH (07:30)
[2018-08-10 07:43] VITALS: BP 106/68; PULSE 114; RESP 17
[2018-08-10] MEDS: ASPIRIN 81 MG TAB PO SCH (09:00)
[2018-08-10] MEDS: MULTIVITAMINS THERAPEUTIC TAB PO SCH (09:00)
[2018-08-10] MEDS: MEMANTINE 10 MG TAB PO SCH (09:00)
[2018-08-10] MEDS: CARBIDOPA/LEVODOPA 25-100 (CR) TAB PO SCH ×3 (09:00→20:07)
[2018-08-10] MEDS: LACTOBACILLUS RHAMNOSUS CAP PO SCH ×2 (09:00→20:07)
[2018-08-10] MEDS: GABAPENTIN 300 MG CAP PO SCH ×3 (09:00→20:07)
[2018-08-10] MEDS: MEROPENEM 1 GM/50ML(PMX) 50 ML IVPB SCH ×2 (11:08→20:05)
[2018-08-10] MEDS: COLLAGENASE 5 GM (UD JAR) TOP SCH (11:53)
--- NOTE | 2018-08-10 13:07 | CONS ---
Date/Time of Note Date/Time of Note DATE: 08/10/18 TIME: 13:06 Consult Date/Type/Reason Admit Date/Time Aug 06, 2018 at 00:34 Initial Consult Date Type of Consultation: Pulm/CCM Subjective Being evaluated by hospice. Objective Vital Signs Date Temp Pulse Resp B/P (MAP) Pulse Ox O2 O2 Flow FiO2 Time Delivery Rate 08/10/18 93 6.0 07:54 08/10/18 113 26 Nasal 07:54 Cannula 08/10/18 100.4 106/68 07:43 (81) 08/09/18 40 15:05 Intake and Output 08/09/18 08/09/18 08/10/18 1515:00 23:00 07:00 IntakeIntake Total 445 ml 150 ml 1035 ml OutputOutput Total 280 ml 190 ml 450 ml BalanceBalance 165 ml -40 ml 585 ml Exam HEENT: Neck supple; no JVD; no LAD CVS: Tachy, S1 and S2 CHEST: Coarse rhonchi R>L ABD: Soft, NT, + BS EXT: No c/c/e Results/Medications Result Diagram: 08/10/18 0440 08/10/18 0440 Results 24 hrs Laboratory Tests Test 08/09/18 15:25 08/10/18 04:40 Bedside Glucose 80 White Blood Count 4.4 L Red Blood Count 2.76 L Hemoglobin 8.4 L Hematocrit 29.4 L Mean Corpuscular Volume 106.5 H Mean Corpuscular Hemoglobin 30.4 Mean Corpuscular Hemoglobin Concent 28.6 L Red Cell Distribution Width 22.7 H Platelet Count 71 L Mean Platelet Volume 13.5 H Immature Granulocytes % 1.400 H Neutrophils % 68.6 Lymphocytes % 19.6 Monocytes % 9.4 Eosinophils % 0.5 Basophils % 0.5 Nucleated Red Blood Cells % 0.7 H Immature Granulocytes # 0.060 H Neutrophils # 3.0 Lymphocytes # 0.9 Monocytes # 0.4 Eosinophils # 0.0 Basophils # 0.0 Nucleated Red Blood Cells # 0.0 Sodium Level 153 H Potassium Level 3.3 L Chloride Level 126 H Carbon Dioxide Level 20 L Anion Gap 7 Blood Urea Nitrogen 19 Creatinine 0.86 Est Glomerular Filtrat Rate mL/min > 60 Glucose Level 82 Calcium Level 9.3 Medications Current Medications Vancomycin HCl (Vanco Iv Per Pharmacy) VANCOMYCIN PER PHARMACY PER PROTOCOL XX ; Start 08/06/18 at 08:30 Albuterol/ Ipratropium (Duoneb) 3 ml Q6H RESP THERAPY HHN Last administered on 08/10/18at 07:53; Admin Dose 3 ML; Start 08/06/18 at 08:30; Stop 09/05/18 at 12:00 Acetaminophen (Tylenol Supp) 650 mg Q4H PRN [place] MILD PAIN(1-3) OR TEMP>38C Last administered on 08/09/18at 17:26; Admin Dose 650 MG; Start 08/06/18 at 08:30 IV Flush (NS 3 ml) 3 ml PER PROTOCOL IV ; Start 08/06/18 at 12:00 Ondansetron HCl (Zofran Inj) 4 mg Q6H PRN IV NAUSEA AND/OR VOMITING; Start 08/06/18 at 12:00 Albuterol (Proventil 0.083% (Neb)) 2.5 mg Q2H RESP THERAPY PRN NEB SHORTNESS OF BREATH; Start 08/06/18 at 12:00 Ipratropium [place] (Atrovent 0.02% (Neb)) 0.5 mg Q2H RESP THERAPY PRN NEB SHOR TNESS OF BREATH; Start 08/06/18 at 12:00 Acetaminophen (Tylenol Liquid) 650 mg Q6H PRN PO PAIN LEVEL 1-3 OR FEVER; Start 08/06/18 at 12:00 Docusate Sodium (Colace) 100 mg Q12H PRN PO CONSTIPATION; Start 08/06/18 at 12:00 Pantoprazole (Protonix Iv) 40 mg DAILY@06 IV Last administered on 08/10/18at 06:04; Admin Dose 40 MG; Start 08/07/18 at 06:00 Aspirin (Aspirin) 81 mg DAILY PO ; Start 08/07/18 at 09:00 Carbidopa/Levodopa (Sinemet Cr (25/ 100)) 1 tab TID PO ; Start 08/06/18 at 15:00 Gabapentin (Neurontin) 900 mg TID PO ; Start 08/06/18 at 14:00 Lactobacillus Acidophilus/ Rhamnosus (Culturelle) 1 cap BID PO ; Start 08/06/18 at 21:00 Memantine (Namenda) 10 mg DAILY PO ; Start 08/07/18 at 09:00 Miscellaneous Information 5 mg Q48H XX ; Start 08/06/18 at 12:30; Status UNV Multivitamins Therapeutic (Theragran) 1 tab DAILY PO ; Start 08/07/18 at 09:00 IV Flush (NS 10 ml) 10 ml PRN PRN IV FLUSH LINE; Start 08/06/18 at 15:00 Vancomycin/Sodium Chloride 250 ml @ 125 mls/hr Q24H IVPB Last administered on 08/10/18at 07:30; Admin Dose 125 MLS/HR; Start 08/08/18 at 06:00 Meropenem/Sodium Chloride 50 ml @ 100 mls/hr Q12 IVPB Last administered on 08/10/18at 11:08; Admin Dose 100 MLS/HR; Start 08/08/18 at 15:07 Collagenase (Santyl) 1 applic DAILY TOP Last administered on 08/10/18at 11:53; Admin Dose 1 APPLIC; Start 08/08/18 at 20:30 Potassium Chloride/Dextrose/ Sod Cl 1,000 ml @ 70 mls/hr [id number] IV Last administered on 08/10/18at 03:32; Admin Dose 70 MLS/HR; Start 08/09/18 at 08:00 Metronidazole 100 ml @ 100 mls/hr Q8 IVPB Last administered on 08/10/18at 06:04; Admin Dose 100 MLS/HR; Start 08/09/18 at 14:00 Morphine Sulfate (morphine) 2 mg Q4H PRN IV PAIN LEVEL 7-10 Last administered on 08/09/18at 16:48; Admin Dose 2 MG; Start 08/09/18 at 17:00 Assessment/Plan Additional Assessment/Plan IMP: 1. Encephalopathy--etiology unclear though concerning for lymphoma 2. Acute on chronic hypoxemic respiratory failure 3. Aspiration pneumonia 4. Sepsis 5. Lymphoma 6. History of pulmonary embolus status post IVC filter placement. RECS: 1. Hospice as planned and desired by family 2. Will sign off NIKKO ESTEVES MD Aug 10, 2018 13:07
[2018-08-10 14:33] VITALS: BP 109/71; PULSE 116; RESP 16
--- NOTE | 2018-08-10 15:25 | NUR ---
SS Note: Hospice Care Consult SWer received a notification from [employer] re the status of their meeting w/ pt's family members. Per [email or web address], pt's family members signed consents and an RN will evaluate pt tomorrow morning 10_11 a.m. ROSA aware
[2018-08-10] MEDS: morphine 4 MG/ML VIAL IV PRN (17:50)
--- NOTE | 2018-08-10 18:10 | CONS ---
Date/Time of Note Date/Time of Note DATE: 08/10/18 TIME: 18:08 Assessment/Plan Assessment/Plan Hospital Course ID PROGRESS NOTE CURRENT ABX: DAY #5 => Vanco IV #5 + Merrem #3 + Flagyl #2 s/p Cefepime 24H INTERVAL SUMMARY * Chart reviewed == family plans to meet with Hospice tomorrow AM. Patient is DNR for advanced NHL * Frail/cachectic M laying supine in bed -- lethargic, low grade temps. * CXR 08/07/18: IMPRESSION:Patchy opacities in the right upper lobe in the left mid to lower lung, with interval improved aeration of the left lower lung, likely representing multifocal pneumonia. Stable small left pleural effusion.Stable left-sided PICC. Mottled appearance of the left humerus. Recommend correlation for underlying infiltrative/neoplastic process including multiple myeloma. MICRO * 08/06/18 (-) MRSA Nares * 08/05/18 BCx (-) * 05/05/18 Urine (-) PHYSICAL EXAMINATION: GENERAL: Afebrile, VSS, HEENT: AT, NC, anicteric NECK: Supple, trach-> secure CHEST: Equal chest rise bilaterally, without dyspnea on observation HEART: Pulse RRR ABDOMEN: Soft / NT EXTREMITIES: Warm, dry SKIN: No rash, no diaphoresis ID ASSESSMENT 53 yo M w/PMHx BLINDNESS, admit with: 1. Severe sepsis status post shock 2. Healthcare associated pneumonia = Multifocal PNA 3. Recently treated C. difficile colitis 4. Non-Hodgkin's lymphoma 5. Parkinson's disease 6. History of DVT and pulmonary emboli status post IVC filter placement 7. Paroxysmal atrial fibrillation * Preserved ejection fraction on 2D ECHO 8. s/p SVT 9. Mild elevated troponin in setting sepsis + SVT 10. Dysphagia -- failed swallow eval -- not taking PO Meds at this time (-)MRSA Nares ABX ALLERGIES: LEVAQUIN INVASIVES: PICC, FC CURRENT ABX: DAY #5 => Vanco IV #5 + Merrem #3 +Flagyl #2 s/p Cefepime ID RECOMMENDATIONS/PLAN: Continue current ABX + hx of C.Diff - started on Flagyl IV as at risk recurrent C.Diff Failed swallow eval -- not taking PO Meds at this time Chart reviewed == family plans to meet with Hospice tomorrow AM. Patient is DNR for advanced NHL . Result Diagram: 08/10/18 0440 08/10/18 0440 Results 24hrs Laboratory Tests Test 08/10/18 04:40 White Blood Count 4.4 L Red Blood Count 2.76 L Hemoglobin 8.4 L Hematocrit 29.4 L Mean Corpuscular Volume 106.5 H Mean Corpuscular Hemoglobin 30.4 Mean Corpuscular Hemoglobin Concent 28.6 L Red Cell Distribution Width 22.7 H Platelet Count 71 L Mean Platelet Volume 13.5 H Immature Granulocytes % 1.400 H Neutrophils % 68.6 Lymphocytes % 19.6 Monocytes % 9.4 Eosinophils % 0.5 Basophils % 0.5 Nucleated Red Blood Cells % 0.7 H Immature Granulocytes # 0.060 H Neutrophils # 3.0 Lymphocytes # 0.9 Monocytes # 0.4 Eosinophils # 0.0 Basophils # 0.0 Nucleated Red Blood Cells # 0.0 Sodium Level 153 H Potassium Level 3.3 L Chloride Level 126 H Carbon Dioxide Level 20 L Anion Gap 7 Blood Urea Nitrogen 19 Creatinine 0.86 Est Glomerular Filtrat Rate mL/min > 60 Glucose Level 82 Calcium Level 9.3 Consultation Date/Type/Reason Admit Date/Time Aug 06, 2018 at 00:34 Initial Consult Date Exam/Review of Systems Vital Signs Vitals Vital Signs Date Temp Pulse Resp B/P (MAP) Pulse Ox O2 O2 Flow FiO2 Time Delivery Rate 08/10/18 115 29 95 Nasal 5.0 14:49 Cannula 08/10/18 100.7 109/71 14:33 (84) 08/09/18 40 15:05 Intake and Output 08/09/18 08/09/18 08/10/18 1515:00 23:00 07:00 IntakeIntake Total 445 ml 150 ml 1035 ml OutputOutput Total 280 ml 190 ml 450 ml BalanceBalance 165 ml -40 ml 585 ml Medications Medications Current Medications Vancomycin HCl (Vanco Iv Per Pharmacy) VANCOMYCIN PER PHARMACY PER PROTOCOL XX ; Start 08/06/18 at 08:30 Albuterol/ Ipratropium (Duoneb) 3 ml Q6H RESP THERAPY HHN Last administered on 08/10/18at 14:49; Admin Dose 3 ML; Start 08/06/18 at 08:30; Stop 09/05/18 at 12:00 Acetaminophen (Tylenol Supp) 650 mg Q4H PRN [place] MILD PAIN(1-3) OR TEMP>38C Last administered on 08/09/18at 17:26; Admin Dose 650 MG; Start 08/06/18 at 08:30 IV Flush (NS 3 ml) 3 ml PER PROTOCOL IV ; Start 08/06/18 at 12:00 Ondansetron HCl (Zofran Inj) 4 mg Q6H PRN IV NAUSEA AND/OR VOMITING; Start 08/06/18 at 12:00 Albuterol (Proventil 0.083% (Neb)) 2.5 mg Q2H RESP THERAPY PRN NEB SHORTNESS OF BREATH; Start 08/06/18 at 12:00 Ipratropium [place] (Atrovent 0.02% (Neb)) 0.5 mg Q2H RESP THERAPY PRN NEB SHORTNESS OF BREATH; Start 08/06/18 at 12:00 Acetaminophen (Tylenol Liquid) 650 mg Q6H PRN PO PAIN LEVEL 1-3 OR FEVER; Start 08/06/18 at 12:00 Docusate Sodium (Colace) 100 mg Q12H PRN PO CONSTIPATION; Start 08/06/18 at 12:00 Pantoprazole (Protonix Iv) 40 mg DAILY@06 IV Last administered on 08/10/18at 06:04; Admin Dose 40 MG; Start 08/07/18 at 06:00 Aspirin (Aspirin) 81 mg DAILY PO ; Start 08/07/18 at 09:00 Carbidopa/Levodopa (Sinemet Cr (25/ 100)) 1 tab TID PO ; Start 08/06/18 at 15:00 Gabapentin (Neurontin) 900 mg TID PO ; Start 08/06/18 at 14:00 Lactobacillus Acidophilus/ Rhamnosus (Culturelle) 1 cap BID PO ; Start 08/06/18 at 21:00 Memantine (Namenda) 10 mg DAILY PO ; Start 08/07/18 at 09:00 Miscellaneous Information 5 mg Q48H XX ; Start 08/06/18 at 12:30; Status UNV Multivitamins Therapeutic (Theragran) 1 tab DAILY PO ; Start 08/07/18 at 09:00 IV Flush (NS 10 ml) 10 ml PRN PRN IV FLUSH LINE; Start 08/06/18 at 15:00 Vancomycin/Sodium Chloride 250 ml @ 125 mls/hr Q24H IVPB Last administered on 08/10/18 07:30; Admin Dose 125 MLS/HR; Start 08/08/18 at 06:00 Meropenem/Sodium Chloride 50 ml @ 100 mls/hr Q12 IVPB Last administered on 08/10/18 11:08; Admin Dose 100 MLS/HR; Start 08/08/18 at 15:07 Collagenase (Santyl) 1 applic DAILY TOP Last administered on 08/10/18at 11:53; Admin Dose 1 APPLIC; Start 08/08/18 at 20:30 Potassium Chloride/Dextrose/ Sod Cl 1,000 ml @ 70 mls/hr [id number] IV Last administered on 08/10/18 03:32; Admin Dose 70 MLS/HR; Start 08/09/18 at 08:00 Metronidazole 100 ml @ 100 mls/hr Q8 IVPB Last administered on 08/10/18at 15:09; Admin Dose 100 MLS/HR; Start 08/09/18 at 14:00 Morphine Sulfate (morphine) 2 mg Q4H PRN IV PAIN LEVEL 7-10 Last administered on 08/10/18at 17:50; Admin Dose 2 MG; Start 08/09/18 at 17:00 Miscellaneous Information (*Rx Drug Level Order Reminder*) VANCO TROUGH @ 0,500 ON... ONCE ONCE XX ; Start 08/11/18 at 05:00; Stop 08/11/18 at 05:01 GÓMEZ MONROE NP Aug 10, 2018 18:10
--- NOTE | 2018-08-10 19:00 | NUR ---
Patient on bed rest, non verbal, legally blind, alert and oriented to name. Turned every 2 hours. Patient is DNR/DNI. Seen by Hospice Carol today and family accepted to start under vitas care. Wound care provided as ordered. Patient NPO. Report given to Chapis GAVIN.
[2018-08-10 20:00] VITALS: BP 102/70; PULSE 126; RESP 18
[2018-08-10] MEDS: POTASSIUM CHLORIDE 50 ML IVPB SCH (23:26)
[2018-08-11] MEDS: POTASSIUM CHLORIDE 50 ML IVPB SCH ×2 (00:30→01:43)
[2018-08-11] MEDS: ALBUTEROL/IPRATROPIUM (NEB) 3 ML AMP HHN SCH ×3 (01:02→14:20)
[2018-08-11 02:00] VITALS: BP 100/73; PULSE 132; RESP 16
[2018-08-11] MEDS: D5-NS + KCL 20 MEQ 1,000 ML IV SCH (02:48)
[2018-08-11] MEDS: ACETAMINOPHEN 650 MG SUPP PR PRN (02:49)
[2018-08-11] MEDS: PANTOPRAZOLE 40 MG INJ IV SCH (05:13)
[2018-08-11] MEDS: metroNIDAZOLE 500 MG/NS (PMX) 100 ML IVPB SCH (05:13)
[2018-08-11] MEDS: VANCOMYCIN 750 MG (PMX) 250 ML IVPB SCH (06:31)
--- NOTE | 2018-08-11 06:36 | NUR ---
Shift summary: DNR, DNI. non verbal patient. Patient had fever last night 100.7, cooling measures done, tylenol suppository administered, repeat temperature- 98.9. Patient turned Q2H. MD discontinued the BiPAP. potassium was 3.1, 30 mEqs of KCl IVPB given, morning BMP ordered. Vancomycin trough this was 14.9, same dose administered. Hospice team to meet with family today.
--- NOTE | 2018-08-11 06:39 | NUR ---
VANCOMYCIN PER PHARMACY Problem List: SEPSIS S/P SHOCK, RECURRENT C.DIFF COLITIS VANCO TROUGH = 14.9 CONTINUE WITH SAME THERAPY VANCO 750 MG Q24HRS
[2018-08-11] MEDS: MEROPENEM 1 GM/50ML(PMX) 50 ML IVPB SCH (08:20)
[2018-08-11] MEDS: COLLAGENASE 5 GM (UD JAR) TOP SCH (08:20)
[2018-08-11] MEDS: ASPIRIN 81 MG TAB PO SCH (08:21)
[2018-08-11] MEDS: LACTOBACILLUS RHAMNOSUS CAP PO SCH (08:21)
[2018-08-11] MEDS: MULTIVITAMINS THERAPEUTIC TAB PO SCH (08:22)
[2018-08-11] MEDS: GABAPENTIN 300 MG CAP PO SCH ×2 (08:22→12:29)
[2018-08-11] MEDS: MEMANTINE 10 MG TAB PO SCH (08:22)
[2018-08-11] MEDS: CARBIDOPA/LEVODOPA 25-100 (CR) TAB PO SCH ×2 (08:22→12:29)
[2018-08-11 08:42] VITALS: BP 91/64; PULSE 117; RESP 19
[2018-08-11] MEDS ORDERED: LORAZEPAM 2 MG INJ IV PRN (14:30)
[2018-08-11] MEDS ORDERED: ATROPINE 1% 5 ML OPH SL PRN (14:30)
[2018-08-11] MEDS ORDERED: ARTIFICIAL TEARS 15 ML OPH BOTH EYES PRN ×2 (14:30)
[2018-08-11] MEDS ORDERED: BISACODYL 10 MG SUPP PR PRN (14:30)
--- NOTE | 2018-08-11 14:30 | NUR ---
RN NOTES Patient was seen, evaluated then finally admitted by Carol Love under Inpatient Hospice Care. Orders was given and carried out. All other orders discontinued. Morphine drip was started at 1mg/hr and to be titrated 1mg/hour every 30 minutes for SOB/agitation. Vital signs, labs and Xray orders are discontinued as well. Patient remained to be NPO, and to keep comfortable at all times. Patient is awake but non verbal. Will continue to monitor. Addendum: 08/11/18 at 1818 by SHANNAN MCNAMARA RN No significant change, remained stable all throughout the shift. Not in apparent distress/SOB. Morphine drip ongoing and infusing well. Reposition every 2 hours and as needed. No new skin issues identified. Vital signs stable except for the heart rate which remained high. Kept safe and comfortable. Will endorse to assembler 1st shift for continuity of care.
[2018-08-11 15:23] VITALS: BP 92/65; PULSE 120; RESP 17
[2018-08-11] MEDS ORDERED: morphine (DRIP) 100 MG/100 ML 100 ML IV SCH (16:00)
--- NOTE | 2018-08-11 16:14 | CONS ---
Date/Time of Note Date/Time of Note DATE: 08/11/18 TIME: 16:12 Assessment/Plan Assessment/Plan Assessment/Plan Severe sepsis Preserved ejection fraction Paroxysmal atrial fibrillation, currently sinus rhythm History lymphoma Mild elevated troponin SVT Labile BP with Hypotension -Based on the medical chart and discussion with [employer], it appears patient is going towards comfort measures only/hospice status. No new cardiac orders at the current time Result Diagram: 08/10/18 0440 08/11/18 0518 Results 24hrs Laboratory Tests Test 08/11/18 05:18 Sodium Level 155 H Potassium Level 4.1 Chloride Level 125 H Carbon Dioxide Level 19 L Anion Gap 11 Blood Urea Nitrogen 20 Creatinine 0.93 Est Glomerular Filtrat Rate mL/min > 60 Glucose Level 89 Calcium Level 9.4 Vancomycin Level Trough 14.9 Consultation Date/Type/Reason Admit Date/Time Aug 06, 2018 at 00:34 Initial Consult Date Type of Consult cv 24 HR Interval Summary Free Text/Dictation Patient seen and examined. 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, not responding to questions Head: normocephalic Respiratory: other (Coarse breath sounds bilaterally, no wheezing) Cardiovascular: regular rate and rhythm, other (S1-S2 heard) Gastrointestinal: soft, non-tender, bowel sounds Extremities: edema (Trace) Medications Medications Current Medications Acetaminophen (Tylenol Supp) 650 mg Q4H PRN [place] MILD PAIN(1-3) OR TEMP>38C Last administered on 08/11/18at 02:49; Admin Dose 650 MG; Start 08/06/18 at 08:30 Morphine Sulfate/ Sodium Chloride 100 ml @ 1 mls/hr TITRATE IV Last administered on 08/11/18at 15:30; Admin Dose 1 MLS/HR; Start 08/11/18 at 16:00 Lorazepam (Ativan) 1 mg Q4H PRN IV AGITATION; Start 08/11/18 at 14:30 Atropine Sulfate (Atropine 1% Oph) 2 drop Q2 PRN [place] PRN SECRETIONS; Start 08/11/18 at 14:30 Eye Lubricant (Artificial Tears Oph) 2 drop EACH SHIFT PRN BOTH EYES DRY EYES; Start 08/11/18 at 14:30 Bisacodyl (Dulcolax Supp) 10 mg DAILY PRN [place] CONSTIPATION; Start 08/11/18 at 14:30 Nito Ramirez DO Aug 11, 2018 16:14
--- NOTE | 2018-08-11 16:18 | PN ---
Date/Time of Note Date/Time of Note DATE: 08/11/18 TIME: 16:16 Assessment/Plan VTE Prophylaxis Risk score (from [facility])>0 risk: 11 SCD applied (from [facility]): Yes Pharmacological prophylaxis: NA/contraindicated Pharm contraindication: thrombocytopenia Lines/Catheters [facility] Line Central line still needed: Yes Urinary Cath still in place: Yes Reason Cath still needed: urinary retention Assessment/Plan Hospital Course Patient is in the process of transitioning to hospice care. Assessment/Plan -Sepsis with shock, resolving. Dr. Ramos is following in infection disease consultation. -Acute hypoxic respiratory failure. Dr. Bonner is following in pulmonology consultation. -Atrial fibrillation was rapid ventricular response, currently in sinus tachycardia. Dr. Ramirez is following in cardiology consultation. -Recurrent C. difficile colitis, patient was on vancomycin and rifaximin prior to admission. 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 -Parkinsonism. Continue Sinemet. -Neuropathy. Continue gabapentin. -Depression. Continue Lexapro. -Legal blindness. No acute issue. -History of deep venous thrombosis and pulmonary embolism in 2011, status post inferior vena cava filter placement. -Severe protein calorie malnutrition -DNR/DNI status Further recommendations based on clinical course. Plan of care discussed with Dr. Mackay. Result Diagram: 08/10/18 0440 08/11/18 0518 Results 24hrs Laboratory Tests Test 08/11/18 05:18 Sodium Level 155 H Potassium Level 4.1 Chloride Level 125 H Carbon Dioxide Level 19 L Anion Gap 11 Blood Urea Nitrogen 20 Creatinine 0.93 Est Glomerular Filtrat Rate mL/min > 60 Glucose Level 89 Calcium Level 9.4 Vancomycin Level Trough 14.9 Exam/Review of Systems Vital Signs Vitals Vital Signs Date Temp Pulse Resp B/P (MAP) Pulse Ox O2 O2 Flow FiO2 Time Delivery Rate 08/11/18 96.3 120 17 92/65 (74) 94 15:23 08/11/18 Nasal 5.0 14:15 Cannula 08/09/18 40 15:05 Intake and Output 08/10/18 08/10/18 08/11/18 1515:00 23:00 07:00 IntakeIntake Total 400 ml 710 ml 895 ml OutputOutput Total 550 ml 400 ml BalanceBalance 400 ml 160 ml 495 ml Exam Constitutional: alert, frail Eyes: other (Blind) Respiratory: diminished breath sounds Cardiovascular: regular rate and rhythm Gastrointestinal: soft, non-tender Genitourinary - Male: other (Craft catheter) Neurological: confused, lethargic Skin: nl turgor Medications Medications Current Medications Acetaminophen (Tylenol Supp) 650 mg Q4H PRN ID MILD PAIN(1-3) OR TEMP>38C Last administered on 08/11/18at 02:49; Admin Dose 650 MG; Start 08/06/18 at 08:30 Morphine Sulfate/ Sodium Chloride 100 ml @ 1 mls/hr TITRATE IV Last administered on 08/11/18at 15:30; Admin Dose 1 MLS/HR; Start 08/11/18 at 16:00 Lorazepam (Ativan) 1 mg Q4H PRN IV AGITATION; Start 08/11/18 at 14:30 Atropine Sulfate (Atropine 1% Oph) 2 drop Q2 PRN SL PRN SECRETIONS; Start 08/11/18 at 14:30 Eye Lubricant (Artificial Tears Oph) 2 drop EACH SHIFT PRN BOTH EYES DRY EYES; Start 08/11/18 at 14:30 Bisacodyl (Dulcolax Supp) 10 mg DAILY PRN ID CONSTIPATION; Start 08/11/18 at 14:30 ALEXANDRA TOMLINSON Aug 11, 2018 16:18
[2018-08-11 20:07] VITALS: BP 108/62; PULSE 120; RESP 18
[2018-08-11] MEDS ORDERED: ALBUTEROL/IPRATROPIUM (NEB) 3 ML AMP HHN PRN (20:30)
--- NOTE | 2018-08-11 22:47 | HP ---
DATE OF ADMISSION: 08/06/2018 DATE OF ADMISSION UNDER HOSPICE: 08/11/2018 LEVEL OF CARE: [facility]IMARY [facility] DIAGNOSES: 1. Metastatic non-Hodgkin's lymphoma. 2. Acute hypoxemic respiratory failure. 3. Atrial fibrillation. 4. Parkinsonism. 5. Neuropathy. 6. Depression. 7. Legal blindness. 8. Anemia. CHIEF COMPLAINT AND HISTORY OF PRESENT ILLNESS: The patient is a 53-year-old gentleman well known to me from previous admission. The patient has history of metastatic non-Hodgkin's lymphoma status pos t radiation therapy, and recently was on Revlimid. The patient is legally blind and also has history of parkinsonism, neuropathy, depression, and was admitted from half-way facility due to sepsi s with shock due to healthcare facility-acquired pneumonia. The patient had to be put on vasopressor agent to stabilize blood pressure. The patient was meanwhile also started on vancomycin, meropenem, and Flagyl. The patient's urine and blood cultures so far remain negative. The patient's chest x-r ay revealed multifocal pneumonia. Echo revealed preserved ejection fraction. The patient also had a n episode of SVT with positive troponin. The patient was seen by Dr. Ramirez from cardiac standpoint and Dr. Freeman's group from pulmonary standpoint. The patient, however, continued to remain frail a nd weak and remained severely malnourished despite recent history of G-tube feeding. The patient als o had acute kidney injury which resolved with IV fluids. Due to declining overall health and poor qu ality of life, the patient's family requested hospice evaluation and the patient is being admitted un [facility] level of care. The patient today looks short of breath and was tachycardic and was in pain a nd the patient continues to remain febrile, T-max in 2 days was 101.1. The patient remains frail and weak, opens eyes on stimuli and attempts to follow simple commands, but is weak and remains bedridde n. The patient did not have any vomiting or diarrhea. The patient denied any vomiting, no reported bleeding from any site. No reported seizure. No reported acute skin rash. PAST MEDICAL HISTORY: As stated above. In addition, the patient has history of biliary stent placem ents, a history of IVC filter placement for DVT and PE, history of G-tube placement which was subsequ ently removed. FAMILY HISTORY: Noncontributory. SOCIAL HISTORY: No smoking or alcohol. PHYSICAL EXAMINATION GENERAL: The patient is a little bit lethargic, but arousable. VITAL SIGNS: T-max 101.1, pulse 120, respirations 70, blood pressure 92/65, O2 sat 94% on 5 liter na lakisha cannula. HEENT: No eye discharge or redness. Nose and ears are normal. NECK: No mass. OROPHARYNX: Grossly negative. CHEST: Diminished air entry at bases with few scattered coarse breath sounds. CARDIOVASCULAR: S1, S2 normal. Sinus tachycardia. ABDOMEN: Soft, nondistended, and nontender. EXTREMITIES: Trace edema. No clubbing or cyanosis. NEUROLOGIC: The patient is lethargic, but arousable, attempts to follow simple commands. LABORATORY DATA: Labs done this morning, sodium 155, potassium 4.1, BUN 20, creatinine 0.9, glucose 89. WBC 4.4, hemoglobin 8.4, platelet 71. IMPRESSION: 1. Relapse non-Hodgkin's lymphoma to spine and brain, status post intrathecal chemotherapy, currentl y was on Revlimid. The patient could not get well enough to be evaluated for stem cell transplant. 2. Acute respiratory failure due to healthcare facility-acquired pneumonia. 3. Parkinsonism. 4. History of deep venous thrombosis and pulmonary embolism, status post IVC filter placement. 5. Severe malnutrition. 6. Anemia and thrombocytopenia. PLAN: The patient will be admitted under [facility] level of care and will be started on morphine sulfate a t 1 mg an hour which will be titrated up for comfort care. We will also start him on IV Ativan 1 mg q. 4 hours p.r.n. for agitation. For secretion, the patient will be started on atropine drops. We w ill also add DuoNeb for chest congestion and Tylenol for mild pain and fever. We will continue to op timize comfort care. Plan of care was discussed with the desk nurse, Macey. The patient remains michelle ropriate for hospice level of care. Dictated By: TALI FAIR/JAMES Conf#: [id number] DID#: [id number]
--- NOTE | 2018-08-12 06:25 | NUR ---
End of shift Report: Hospice pt, remains calm . no sob. no resp distress. On morphine drip 1mg/hr well-misha. No s/sx pain/discomfort. No acute events overnight. Kept comfortable at all times. kept clean and dry. Received pt on contact spore isolation to rule out C-diff as endorsed by am shift nurse no order from MD. Will endorse to am shift to check isolation order to MD. No BM this shift. Will continue to monitor pt.Will endorse accordingly.
--- NOTE | 2018-08-12 13:41 | CONS ---
Assessment/Plan Assessment/Plan Assessment/Plan Severe sepsis Preserved ejection fraction Paroxysmal atrial fibrillation, currently sinus rhythm History lymphoma Mild elevated troponin SVT Labile BP with Hypotension -Based on the medical chart and discussion with business objects analyst, it appears patient is going towards comfort measures only/hospice status. No new cardiac orders at the current time -morphine comfort care -will follow prn Result Diagram: 08/10/18 0440 08/11/18 0518 Consultation Date/Type/Reason Admit Date/Time Aug 06, 2018 at 00:34 Initial Consult Date 24 HR Interval Summary Free Text/Dictation The patient now on cmfort care Exam/Review of Systems Vital Signs Vitals Vital Signs Date Temp Pulse Resp B/P (MAP) Pulse Ox O2 O2 Flow FiO2 Time Delivery Rate 08/12/18 Nasal 5.0 08:00 Cannula 08/11/18 () 20:07 08/09/18 40 15:05 Intake and Output 08/11/18 08/11/18 08/12/18 1515:00 23:00 07:00 IntakeIntake Total 866 ml 8 ml OutputOutput Total 500 ml 650 ml BalanceBalance 366 ml -642 ml Medications Medications Current Medications Acetaminophen (Tylenol Supp) 650 mg Q4H PRN MO MILD PAIN(1-3) OR TEMP>38C Last administered on 08/11/18at 02:49; Admin Dose 650 MG; Start 08/06/18 at 08:30 Morphine Sulfate/ Sodium Chloride 100 ml @ 1 mls/hr TITRATE IV Last administered on 08/11/18at 15:30; Admin Dose 1 MLS/HR; Start 08/11/18 at 16:00 Lorazepam (Ativan) 1 mg Q4H PRN IV AGITATION; Start 08/11/18 at 14:30 Atropine Sulfate (Atropine 1% Oph) 2 drop Q2 PRN SL PRN SECRETIONS; Start 08/11/18 at 14:30 Eye Lubricant (Artificial Tears Oph) 2 drop EACH SHIFT PRN BOTH EYES DRY EYES; Start 08/11/18 at 14:30 Bisacodyl (Dulcolax Supp) 10 mg DAILY PRN MO CONSTIPATION; Start 08/11/18 at 14:30 Albuterol/ Ipratropium (Duoneb) 3 ml Q6H RESP THERAPY PRN HHN SHORTNESS OF BREATH; Start 08/11/18 at 20:30 Date/Time of Note Date/Time of Note DATE: 08/12/18 TIME: 13:40 MATEO CARDENAS MD Aug 12, 2018 13:41
--- NOTE | 2018-08-12 17:00 | NUR ---
Patient remains on Morphine drip @ 4mg/hr. Shallow breathing noted at this time. Family at bedside.
--- NOTE | 2018-08-12 17:40 | NUR ---
Found patient non responsive, no pulse, no BP, no breathing. Family at bedside at this time. Called House Sup to pronounce.
--- NOTE | 2018-08-12 18:15 | NUR ---
called to pronounce. Patient on Hospice. Patient was unresponsive to all stimuli, pupils fixed and dilated, and non reactive to light. Absent of heart rate and respiration on auscultation, and no palpable pulses radial or carotid for over one minute. pronounced at 1815 per [facility] protocol. No restraints noted. Family was notified.
--- NOTE | 2018-08-12 18:27 | NUR ---
Pronounce by House sup @ 0288. Called MD to inform, awaiting call back.
--- NOTE | 2018-08-12 18:42 | NUR ---
[facility] informed of patient's by Jenae ALMODOVAR
--- NOTE | 2018-08-12 18:56 | NUR ---
Dr. Mackay called back, informed of patient's . Family left, carr blanket given to Nhan, patient's friend.
--- NOTE | 2018-08-12 19:00 | NUR ---
Received pt's remains , per am nurse pt @ 0615. Will do post mortem care. Addendum: 08/12/18 at 2343 by MAN OLVERA RN clarification: pt @ 1085
--- NOTE | 2018-08-12 20:00 | NUR ---
CHARGE NURSE NOTE: TOÑO nurse stated he called the mortuary, and will pick-up from the morgue.
--- NOTE | 2018-08-12 20:30 | NUR ---
Post mortem care rendered. [place] [facility] [place] [facility]
--- NOTE | 2018-08-12 21:20 | NUR ---
Transporter picked up pt's remains going to morgue.
--- NOTE | 2018-08-12 22:54 | PN ---
DATE: 08/12/2018 PRIMARY HOSPITAL DIAGNOSIS: Non-Hodgkin's lymphoma. COMORBID: Acute hypoxic respiratory failure, atrial fibrillation, Parkinsonism, neuropathy, depressi on and anemia. SUBJECTIVE: The patient since yesterday has continued to decline. The patient did not have any p.o. intake since yesterday. No reported vomiting, no reported fever or chills. No reported abdominal d istention. No reported seizures, no reported bleeding from any site. PHYSICAL EXAMINATION: GENERAL: The patient is lethargic. VITAL SIGNS: Temperature 96.3, pulse 120, respirations 17, blood pressure 92/65, O2 saturation 94% o n 5 liters nasal cannula. HEENT: No eye discharge or redness. Nose and ears normal. Oropharynx is grossly negative. NECK: No mass. CHEST: Diminished air entry at bases. No use of accessory muscles. CARDIOVASCULAR: Currently, patient is in sinus rhythm clinically. S1, S2 normal, no murmur. ABDOMEN: Soft, nontender. EXTREMITIES: Trace edema. NEUROLOGIC: The patient is lethargic and no useful communication was possible. IMPRESSION: 1. Metastatic non-Hodgkin's lymphoma. 2. Respiratory failure. 3. Paroxysmal atrial fibrillation. 4. Parkinsonism 5. Neuropathy. PLAN: The patient's morphine drip has been increased to 4 mg an hour. The patient remains on DuoNeb for chest congestion, Ativan 1 mg q. 4 hours p.r.n. for anxiety, atropine drops for secretion. The patient is terminally ill and appropriate for [facility] level of care. Plan of care discussed with desk nurse and nursing staff at [facility]. Dictated By: TALI FAIR/JAMES Conf#: [id number] DID#: [id number]
--- NOTE | 2018-08-14 06:59 | DES ---
DATE OF ADMISSION: 08/06/2018 DATE OF : 08/12/2018 DATE OF EXPIRY: 08/12/2018 at 1815. CAUSE OF : Metastatic non-Hodgkin lymphoma. COMORBID CONDITIONS: 1. Acute respiratory failure. 2. Paroxysmal atrial fibrillation. 3. Parkinsonism. 4. Neuropathy. 5. Legal blindness. REASON FOR ADMISSION: The patient is a 53-year-old gentleman with metastatic non-ST lymphoma status, status post radiation therapy and apparently was on ____. The patient also has history of parkinson ism, depression, neuropathy, and was legally blind. The patient has had a G-tube placement few month s ago due to poor p.o. intake; however, the patient had infection of G-tube site and it was subsequen tly removed and patient [facility]. The patient was transfe rred to [facility] on 08/06/2018 due to shortness of breath and septic shock. The patient was d iagnosed with healthcare for severe pneumonia. The patient was started on BiPAP and was started on b road spectrum IV antibiotic. The patient was seen by Dr. Freeman from pulmonary standpoint and Dr. Doroteo valladares from infectious disease standpoint. The patient continued to decline and the patient also had an episode of SVT for which Dr. Ramirez was called from cardiac standpoint. The patient developed pro gressive worsening of his condition and family requested hospice eval. The patient was subsequently admitted on 08/11/2018 at [facility] under [facility] level of care for acute respiratory distress. HOSPITAL COURSE: The patient was started on morphine drip at 1 mg hour which was subsequently titrat ed up to 4 mg an hour to provide comfort. The patient was also given DuoNeb for chest congestion, IV Ativan for terminal anxiety, and atropine drops for secretions. The patient continued to decline an d patient did not have any p.o. intake since admission under hospice. The patient's recent lab had r evealed pancytopenia with a WBC of 4.4, hemoglobin 8.4, platelets 71. The patient on 08/12/2018 was found to be unresponsive with fixed and dilated pupils. There were no heart sound or breath sounds. The patient was pronounced at 1815 on 08/12/2018. Family was notified. Dictated By: TALI HERNANDEZ MD AB/JAMES Conf#: [id number] DID#: [id number]
== END 2018-08-12 18:15 | disposition expired | DRG 871 ==
LOC: E/R 21:37 → ICU 08-06 00:34 → CANRESERV 08-06 07:07 → EDBEDREQSVC 08-06 07:11 → CANRESERV 08-06 11:30 → PP2 08-09 17:01
PROVIDERS: ADMIT Internal Medicine; ATTEND Internal Medicine
PROC: 5A09357 Assistance with Respiratory Ventilation, Less than 24 Consecutive Hours, Continuous Positive Airway Pressure (ICD-10-PCS; principal; 2018-08-05)
PROC: 02HV33Z Insertion of Infusion Device into Superior Vena Cava, Percutaneous Approach (ICD-10-PCS; 2018-08-06)
DX: A41.9 Sepsis, unspecified organism (principal); R65.21 Severe sepsis with septic shock; G92 Toxic encephalopathy; E43 Unspecified severe protein-calorie malnutrition; J69.0 Pneumonitis due to inhalation of food and vomit; J96.21 Acute and chronic respiratory failure with hypoxia; A04.71 Enterocolitis due to Clostridium difficile, recurrent; C85.90 Non-Hodgkin lymphoma, unspecified, unspecified site; C79.31 Secondary malignant neoplasm of brain; C79.51 Secondary malignant neoplasm of bone; E87.2 Acidosis; I47.1 Supraventricular tachycardia; D61.818 Other pancytopenia; Z68.1 Body mass index [BMI] 19.9 or less, adult; G20 Parkinson's disease; G89.29 Other chronic pain; G62.9 Polyneuropathy, unspecified; F32.9 Major depressive disorder, single episode, unspecified; R13.10 Dysphagia, unspecified; Z86.718 Personal history of other venous thrombosis and embolism; Z86.711 Personal history of pulmonary embolism; Z95.828 Presence of other vascular implants and grafts; H54.8 Legal blindness, as defined in USA; I48.0 Paroxysmal atrial fibrillation
CPT/HCPCS: 36415; 36569; 36600; 70450; 71045; 76937; 80048; 80053; 80202; 81001; 82550; 82553; 82803; 82962; 83036; 83605; 83735; 84100; 84484; 85025; 85610; 85730; 87040; 87081; 87086; 92526; 92610; 93005; 93306; 94640; 94660; 94664; 96374; 96375; C9113; J0153; J0282; J0692; J2185; J2270; J2274; J3370; J3475; J3480; J7030; J7042; J7050; J7060; J7120